=== PATIENT | female | born 1970 | race Caucasian/White ===

== ENCOUNTER → 2018-08-17 | Day surgery (SDC) | payer OTHER ==
[2018-08-17 11:08] LABS: HEMATOCRIT 29.8 % (32.4-45.2); HEMOGLOBIN 10.4 GM/dL (10.7-15.3); MCH 35.7 pg (25.7-33.7); MCHC 34.9 g/dl (32.0-36.0); MEAN CELL VOLUME 102.3 fl (80-96); MEAN PLT VOLUME 7.8 fl (7.5-11.1); PLATELET COUNT 80 K/MM3 (134-434); RBC 2.91 M/mm3 (3.60-5.2); WHITE BLOOD COUNT 3.5 K/mm3 (4.0-10.0)
[2018-08-17 11:22] LABS: INR 1.18 (0.83-1.09); PROTHROMBIN TIME (PATIENT) 13.9 SEC (9.7-13.0)
[2018-08-17 11:51] LABS: ALBUMIN 1.3 g/dl (3.4-5.0); ALK PHOS 262 U/L (45-117); ANION GAP 9 MMOL/L (8-16); BILIRUBIN,TOTAL 1.2 mg/dL (0.2-1); BLOOD UREA NITROGEN 12 mg/dL (7-18); CALCIUM 7.4 mg/dL (8.5-10.1); CHLORIDE 104 mmol/L (98-107); CO2 26 mmol/L (21-32); CREATININE 0.9 mg/dL (0.55-1.3); GLUCOSE,RANDOM 165 mg/dL (74-106); POTASSIUM 3.2 mmol/L (3.5-5.1); SGOT/AST 68 U/L (15-37); SGPT/ALT 33 U/L (13-61); SODIUM 139 mmol/L (136-145); TOT PROT 6.3 g/dl (6.4-8.2)
[2018-08-17 15:40] LABS: PERITONEAL RBC 641 /mm3
[2018-08-17 18:38] LABS: PERITONEAL FLUID LYMPHOCYTE 50 %; PERITONEAL FLUID MACROPHAGE 25 %; PERITONEAL FLUID MONOCYTE 10 %; PERITONEAL FLUID NEUTROPHIL 8 %
--- NOTE | 2018-08-20 16:44 | PATH ---
Cytology Non-Gynecological Report Patient Name: ESPINOZA GROVES [facility]. Rec. #: [id number] /Age/Gender: 1970 (Age: 48) / F Account: [id number] Location: RADIOLOGY INTER Taken: 08/17/2018 Received: 08/17/2018 Reported: 08/20/2018 Physicians: Lasha Mota M.D. Specimen(s) Received A: RIGHT LOWER QUADRANT PERITONEAL FLUID B: RIGHT LOWER QUADRANT PERITONEAL FLUID Clinical History Ascites Final Diagnosis A-B. ABDOMINAL FLUID, RIGHT LOWER QUADRANT, PARACENTESIS: SATISFACTORY FOR EVALUATION. NO MALIGNANT CELLS IDENTIFIED. MESOTHELIAL CELLS AND RARE LYMPHOCYTES PRESENT. Comment: Recommend correlation with clinical findings and follow up as clinically indicated. Electronically Signed Janett Ball M.D. Gross Description A. Approximately 50 cc of yellow fluid received fresh. One cytofunnel prepared and Pap stained. One cellblock prepared. B. Approximately 3000 cc of yellow fluid received fresh. One cytofunnel prepared and Pap stained. One cellblock prepared.
== END | disposition home or self-care (01) ==
LOC: JRADIR 10:28
PROVIDERS: ATTEND Internal Medicine Gastroenterology
PROC: 0W9G3ZX Drainage of Peritoneal Cavity, Percutaneous Approach, Diagnostic (ICD-10-PCS; principal; 2018-08-17)
PROC: BW40ZZZ Ultrasonography of Abdomen (ICD-10-PCS; 2018-08-17)
DX: R18.8 Other ascites (principal)
CPT/HCPCS: 36415; 76098-TC-FY; 76942-TC; 80053; 82042; 82150; 82945; 83615; 84157; 85027; 85610; 87070; 87075; 87102; 87116; 87205; 87206; 87210; 88108; 88305-TC; 89051

== ENCOUNTER 2018-11-16 12:33 | Inpatient (IN) | payer SELFPAY ==
--- NOTE | 2018-11-16 14:32 | PDOC ---
History of Present Illness - General Chief Complaint: Edema Stated Complaint: LEG PAIN Time Seen by Provider: 11/16/18 14:32 - History of Present Illness Initial Comments: 48yo F with history of cholecystectomy and edema presenting with worsening edema. The pain is rated 17/10 and is keeping her up at night. She reports that something might be going on with her liver. Patient does not know what is causing her swelling that started about seven months ago and is unsure when asked if she has hepatitis or cirrhosis. She does endorse a history of heavy alcohol drinking, but not in the past seven months since the swelling started. A peritoneal tap was performed about one month ago. Patient also endorses abdominal distention, as well as a 40 pound weight gain over the past two weeks. Her legs have become increasingly swollen such that she is finding it difficult to walk. She has taken tylenol at 4am with minimal relief. Patient has a GI doctor but denies previous endoscopy or colonoscopy. Patient reports subjective fever and chills. Denies chest pain or shortness of breath. Past History - Past Medical History Allergies/Adverse Reactions: Allergies Allergy/AdvReac Type Severity Reaction Status Date / Time Penicillins Allergy Verified 11/16/18 13:07 Home Medications: Ambulatory Orders Furosemide 40 mg PO DAILY 10/03/18 Lactulose (Oral Use) [Cephulac -] 20 gm PO BID 10/03/18 Spironolactone [Aldactone] 100 mg PO DAILY 10/03/18 COPD: No GI Disorders: Yes (CHRONIC CONSTIPATION,DIARRHEA) Liver Disease: Yes (LIVER FAILURE) - Surgical History Cholecystectomy: Yes - Suicide/Smoking/Psychosocial Hx Smoking History: Never smoked Have you smoked in the past 12 months: Yes Hx Alcohol Use: Yes Drug/Substance Use Hx: No Review of Systems - Review of Systems Comments:: Constitutional: +fever, +chills HEENT: no throat pain, no dysphagia Cardiovascular: no chest pain, no palpitations Respiratory: no cough, no shortness of breath Gastrointestinal: +abdominal pain, no nausea, no vomiting Genitourinary: no dysuria, no frequency Musculoskeletal: no myalgia, no arthralgia Skin: +rash, +itching Neurologic: +headache, no dizziness *Physical Exam - Vital Signs Last Vital Signs Temp Pulse Resp BP Pulse Ox 97.8 F 98 H 18 124/74 100 11/16/18 13:04 11/16/18 13:04 11/16/18 13:04 11/16/18 13:04 11/16/18 13:04 - Physical Exam Comments: General: Awake, alert, and fully oriented, in no acute distress Head: No signs of trauma Eyes: EOMI, sclera anicteric ENT: Moist mucus membranes Neck: Normal ROM, supple Lungs: Lungs clear, Normal breath sounds Cardio: Regular rhythm, S1 and S2 present Abdomen: Distended; fluid wave present, ascites Extremities: Significant 2+ edema present bilaterally SKIN: area of erythema and petechiae on anterior R. thigh Neurologic: Cranial nerves II through XII grossly intact. Normal speech Moderate Sedation - Procedure Monitoring Vital Signs: Procedure Monitoring Vital Signs Temperature 97.8 F 11/16/18 13:04 Pulse Rate 98 H 11/16/18 13:04 Respiratory Rate 18 11/16/18 13:04 Blood Pressure 124/74 11/16/18 13:04 O2 Sat by Pulse Oximetry (%) 100 11/16/18 13:04 ED Treatment Course - LABORATORY CBC & Chemistry Diagram: 11/16/18 15:45 11/16/18 15:36 Medical Decision Making - Medical Decision Making 48yo F with history of cholecystectomy and edema presenting with worsening edema. -DDX includes cirrhosis, anasarca, CHF, fluid overload -WBC=11.8 (up from 2.5 on 09/10/18) -Hgb 10.6 which is near patient's baseline -Plt 108 (up from 80 on 09/10/18) -AST and ALP elevated -BNP 181.1 which is elevated (no prior values in chart) -CXR without acute pathology (my impression) -2mg morphine IV 11/16/18 15:36 Patient still in significant discomfort Lasix 40mg IV Decision to admit 11/16/18 18:54 Discussed case with inpatient team who accepted patient for admission under Dr. Cobb 11/16/18 20:04 *DC/Admit/Observation/Transfer Diagnosis at time of Disposition: Anasarca - Discharge Dispostion Condition at time of disposition: Guarded Decision to Admit order: Yes - Referrals - Patient Instructions - Post Discharge Activity
[2018-11-16] MEDS ORDERED: morphine CARPU-JECT 2 MG/1 ML DISP.SYRIN IVPUSH ONE (15:18)
--- NOTE | 2018-11-16 15:20 | PDOC ---
Attending Attestation - Resident Resident Name: Mae Ponce - ED Attending Attestation I have performed the following: I have examined & evaluated the patient, The case was reviewed & discussed with the resident, I agree w/resident's findings & plan, Exceptions are as noted - HPI HPI: 11/16/18 15:18 Maribell with residents HPI - Physicial Exam PE: 11/16/18 15:18 Agree with Residents PE - Medical Decision Making 11/16/18 16:02 48 years old with past medical history suggestive of underlying liver disease likely cirrhosis Presents to the emergency department with anasarca, severe bilateral lower extremity pain and swelling secondary to this Given that patient is poor story and with unclear history we'll obtain labs and coags and reassess Patient may require therapeutic paracentesis for diuresis depending on laboratory analysis Dr. Cassidy to follow up labs and reasses
[2018-11-16] MEDS ORDERED: MORPHINE SULFATE 2 MG/ML VIAL ONE (16:01)
[2018-11-16 16:13] LABS: BASO % 0.2 % (0-2.0); EOS % 0.5 % (0-4.5); HEMATOCRIT 29.9 % (32.4-45.2); HEMOGLOBIN 10.6 GM/dL (10.7-15.3); LYMPH % 6.7 % (8-40); MCH 38.6 pg (25.7-33.7); MCHC 35.6 g/dl (32.0-36.0); MEAN CELL VOLUME 108.3 fl (80-96); MEAN PLT VOLUME 7.5 fl (7.5-11.1); MONO % 9.7 % (3.8-10.2); NEUT % 82.9 % (42.8-82.8); PLATELET COUNT 108 K/MM3 (134-434); RBC 2.76 M/mm3 (3.60-5.2); RDW 14.2 % (11.6-15.6); WHITE BLOOD COUNT 11.8 K/mm3 (4.0-10.0)
[2018-11-16 16:50] LABS: ALBUMIN 1.2 g/dl (3.4-5.0); ALK PHOS 235 U/L (45-117); BILIRUBIN,TOTAL 1.7 mg/dL (0.2-1); BLOOD UREA NITROGEN 20 mg/dL (7-18); CALCIUM 7.3 mg/dL (8.5-10.1); CHLORIDE 105 mmol/L (98-107); CREATININE 0.8 mg/dL (0.55-1.3); GLUCOSE,RANDOM 106 mg/dL (74-106); LIPASE 147 U/L (73-393); SGPT/ALT 32 U/L (13-61); SODIUM 136 mmol/L (136-145); TOT PROT 6.4 g/dl (6.4-8.2)
[2018-11-16 16:51] LABS: ANION GAP 7 MMOL/L (8-16); CO2 24 mmol/L (21-32); SGOT/AST 66 U/L (15-37)
[2018-11-16 17:41] LABS: INR 1.23 (0.83-1.09); PROTHROMBIN TIME (PATIENT) 14.6 SEC (9.7-13.0)
[2018-11-16 17:44] LABS: ACTIVATED PTT 41.5 SECONDS (25.2-36.5)
[2018-11-16] MEDS ORDERED: FUROSEMIDE 40 MG/4 ML INJECTABLE VIAL IVPUSH ONE ×2 (18:08→23:15)
[2018-11-16] MEDS ORDERED: FUROSEMIDE 40 MG/4 ML INJECTABLE VIAL ONE ×2 (18:17→23:47)
[2018-11-16 18:32] LABS: N-TERMINAL BNP 181.1 pg/ml (5-125)
[2018-11-16 18:44] LABS: ANISOCYTOSIS 2+; MACROCYTOSIS 2+; PLATELET ESTIMATE DECREASED
--- NOTE | 2018-11-16 20:08 | PN ---
Teaching Attending Note Name of Resident: Horace Maurice ATTENDING PHYSICIAN STATEMENT I saw and evaluated the patient. I reviewed the resident's note and discussed the case with the resident. I agree with the resident's findings and plan as documented. SUBJECTIVE: Seen and examined with resident; please refer to resident note for additional documentation. Briefly, this patient presents c/o anasarca and diffuse abdominal pain that is mild. She has had the anasarca developing for months and has had 40lb unintentional weight gain over the past several months but has noted that it is getting worse over the last week. Nothing makes it better or worse, hasn't seen any other providers. Furthermore, her R leg is much more swollen than the L above the knee and has some associated redness. She endorses compliance with her medications including her lasix 40mg PO QD. Abdominal pain is associated with fullness, distention. She has had paracentesis before with Dr. Romeo and has chronically elevated bili and transaminases; she had elevated CEA, CA-19-9, and CA-125 in the past that GI follows her for; in 08/[address] abdomen/pelvis that shows cirrhosis and splenomegaly and large amount of upper abdominal varices but no occult malignancy. She has genotype 1a hepatitis C and has a history of heavy alcohol abuse and tells us that she stopped drinking 7 months ago. No history of EGD/c- scope. 10 sys ROS done and negative aside HPI PMH and PSH reviewed FH asked and noncontributory Socially +hx EtOH Medication list reviewed with resident OBJECTIVE: VS, labs, imaging reviewed NAD, AAO, resting in bed Anasarca evident, +fluid wave with large volume ascites >6L estimated Mildly tender to palpation throughout abdomen with +fluid wave; habitus limits examination for hsm. Not tympanic. RRR s1/2 no mgr Lungs mostly clear, sym exp CN2-12 wnl, no fnd CBC shows WBC 11 but baseline is ~3 with chronic macrocytosis; BMP unremarkable ; INR 1.23, bili 1.7, AST/ALT 60/30 range which is chronic, albumin 1.2. CEA/ CA19-9/CA125 results reviewed from prior encounters Prior CT scan reviewed 08/2018; shows cirrhosis with splenomegaly, upper abdominal varices, and no occult malignancy CXR reviewed; unremarkable study HCV Genotype 1a Echo pending ASSESSMENT AND PLAN: Patient presents with anasarca; has a history of cirrhosis likely 2/2 EtOH and Hepatitis C 1) Abdominal pain with relative leukocytosis -Patient is baseline mildly pancytopenic with WBC ~3; is 11 today with [employer] predominance. In a patient with ascites, abdominal pain this gives rise to concern for SBP px being needed. -2g Ceftriaxone QD, followup blood cultures and peritoneal fluid cx -IR-guided paracentesis in AM (unable to do overnight due to time constraints) 2) Anasarca -Ddx includes cirrhosis, hypoalbuminemia; need to check UA for proteinuria which is pending. Echo pending but much less likely CHF. -Lasix 60IV total overnight followed by 60 in the AM; follow K and Mg closely. May require additional dose of IV lasix tomorrow as well; if so will do BID BMP and can even consider lasix drip. -QD weights, strict Is and Os. -Elucidate underlying cause; workup pending. Checking HIV. Followup UA 3) Leg Swelling, redness, pain -At risk for DVT; LE u/s pending. If negative will consider potential dx of cellulitis vs. neuropathy but of course want to r/o the severe issue first. 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 Romeo's service; CT done in august is negative for any occult malignancy. Consider sending fluid for cytology. 7) Transaminitis -Chronic, trend CMP. At baseline. Bili slightly higher than baseline at 1.7 ( 1.4 last time) 8) Profound Hypoalbuminemia -Albumin 1.2; need to continue to trend. Check prealbumin. 9) Prior h/o EtOH -Tells us that she hasn't drank in >6 months; monitor for s/s WD and if needed CIWA. Full Code FENA -PO fluids, 2.5L restriction -PRN replete -Low Na diet -As tolerated Full Code
[2018-11-16] MEDS ORDERED: CEFTRIAXONE 2 GM/100 ML BAG IVPB ONE (23:47)
[2018-11-17] MEDS ORDERED: oxyCODONE HCL 5 MG TABLET PO ONE (00:43)
[2018-11-17] MEDS: CEFTRIAXONE 2 GM in DEXTROSE 5%-WATER 100 ML IVPB SCH ×2 (01:32→11:00)
--- NOTE | 2018-11-17 01:35 | HP ---
<KayleneHorace - Last Filed: 11/17/18 06:02> CHIEF COMPLAINT: Diffuse swelling PCP: HISTORY OF PRESENT ILLNESS: Patient is a 48 year old female with history of cirrhosis secondary to alcohol abuse, hepatitis C, presents with complaint of diffuse abdominal and lower extremity swelling. States the that symptoms have been ongoing over the past 6 months, however worsened over the past two weeks. She endorses that she has gained 40lbs in that time due to the fluid accumulation. She admits diffuse abdominal pain that is described as pressure-like. Further, she admits pain and swelling in her right leg (from groin radiating to the knee) worse than her left leg that is preventing her from ambulating. She states the pain occurs with rest, even when she is not attempting to more the affected extremity. Patient states that she has been compliant with her home Lasix. She endorses abstinence from alcohol over the past 6 months. ER course was notable for: (1) Bedside ultrasound showing ascitic fluid within abdomen (2) (3) Recent Travel: PAST MEDICAL HISTORY: Cirrhosis, alcohol abuse, hepatitis C PAST SURGICAL HISTORY: at 21 years old, open cholecystectomy 20 years ago Social History: Smoking: denies smoking cigarettes Alcohol: Endorses that she used to drink up 12 beers a day, on days that she drank. States she has not drank in past 6 months. Drugs: Denies illicit drug use Family History: Allergies Penicillins Allergy (Verified 11/16/18 13:07) HOME MEDICATIONS: Home Medications Medication Instructions Recorded Furosemide 40 mg PO DAILY 10/03/18 Lactulose (Oral Use) [Cephulac -] 20 gm PO BID 10/03/18 Spironolactone [Aldactone] 100 mg PO DAILY 10/03/18 REVIEW OF SYSTEMS CONSTITUTIONAL: Admits: fevers, chills. Absent: diaphoresis, generalized weakness, malaise. HEENT: Absent: rhinorrhea, nasal congestion, throat pain, throat swelling, difficulty swallowing, mouth swelling CARDIOVASCULAR: Absent: chest pain, syncope, palpitations, irregular heart rate, lightheadedness , peripheral edema RESPIRATORY: Absent: cough, shortness of breath, dyspnea with exertion, orthopnea, wheezing, stridor, hemoptysis GASTROINTESTINAL: Admits: abdominal pain, abdominal distension. Absent: nausea, vomiting, diarrhea , constipation, melena, hematochezia GENITOURINARY: Absent: dysuria, frequency, urgency, hesitancy, hematuria, flank pain, genital pain MUSCULOSKELETAL: Absent: myalgia, arthralgia, joint swelling, back pain, neck pain SKIN: Admits: erythema over anterior right leg. Absent: rash, itching, pallor HEMATOLOGIC/IMMUNOLOGIC: Absent: easy bleeding, easy bruising, lymphadenopathy, frequent infections NEUROLOGIC: Absent: headache, focal weakness or paresthesias, dizziness, unsteady gait, seizure, mental status changes, bladder or bowel incontinence PSYCHIATRIC: Absent: anxiety, depression, suicidal or homicidal ideation, hallucinations. PHYSICAL EXAMINATION Vital Signs - 24 hr 11/16/18 13:04 Temperature 97.8 F Pulse Rate 98 H Respiratory 18 Rate Blood Pressure 124/74 O2 Sat by Pulse 100 Oximetry (%) GENERAL: Awake, alert, and fully oriented, in no acute distress. HEAD: Normal with no signs of trauma. EYES: Pupils equal, round and reactive to light, extraocular movements intact, sclera anicteric, conjunctiva clear. No lid lag. EARS, NOSE, THROAT: Ears normal, nares patent, oropharynx clear without exudates. Moist mucous membranes. NECK: Normal range of motion, supple without lymphadenopathy, JVD, or masses. LUNGS: Breath sounds equal, clear to auscultation bilaterally. No wheezes, and no crackles. No accessory muscle use. HEART: Regular rate and rhythm, normal S1 and S2 without murmur, rub or gallop. ABDOMEN: Distended. Diffusely tender to palpation X4 quadrants. Hypoactive bowel sounds X4 quadrants. No guarding, no rebound tenderness. Two vertical scars noted from prior surgeries. Healed, clean dry. MUSCULOSKELETAL: Patient has difficulty moving right lower extremity due to pain and swelling. Patient freely moves B/L upper extremities and left lower extremity. UPPER EXTREMITIES: 2+ radial pulses b/l, warm, well-perfused. LOWER EXTREMITIES: 1+ dorsalis pedis pulses b/l. Right lower extremity erythematous, swollen more than left. Tender to palpation. Pain with passive range of motion testing. NEUROLOGICAL: Cranial nerves II-XII intact. Normal speech. PSYCHIATRIC: Cooperative. Appropriate mood and affect. Laboratory Results - last 24 hr 11/16/18 11/16/18 11/16/18 15:36 15:36 15:45 WBC 11.8 H RBC 2.76 L Hgb 10.6 L Hct 29.9 L MCV 108.3 H MCH 38.6 H MCHC 35.6 RDW 14.2 D Plt Count 108 L D MPV 7.5 Absolute Neuts (auto) 9.7 H Neutrophils % 82.9 H Lymphocytes % 6.7 L Monocytes % 9.7 Eosinophils % 0.5 Basophils % 0.2 Nucleated RBC % 0 Platelet Estimate Decreased Anisocytosis 2+ Macrocytosis 2+ PT with INR 14.60 H INR 1.23 H PTT (Actin FS) 41.5 H Sodium 136 Potassium 4.0 Chloride 105 Carbon Dioxide 24 Anion Gap 7 L BUN 20 H Creatinine 0.8 Creat Clearance w eGFR > 60 Random Glucose 106 Calcium 7.3 L Total Bilirubin 1.7 H AST 66 H ALT 32 Alkaline Phosphatase 235 H B-Natriuretic Peptide 181.1 H Total Protein 6.4 Albumin 1.2 L Lipase 147 ASSESSMENT/PLAN: Patient is a 48 year old female with history of cirrhosis secondary to alcohol abuse, hepatitis C, presents with complaint of diffuse abdominal and lower extremity swelling. Anasarca -Likely secondary to cirrhosis, noted on CT abdomen and pelvis from 08/2018. Patient also noted to be hypoalbuminemic to 1.2 -Abdominal pain is likely secondary to the anasarca. -Concern for SBP- begin Rocephin 2grams IV daily -Lasix 40mg given in ED. Will give another 20mg IV tonight. -Lasix 60mg IV daily -Pain control with Oxycodone 5mg PO one time dose. -F/U GI consult (Dr. Romeo) -F/U IR consult (Dr. Kaba) for paracentesis -F/U HIV, ESR, CRP, Lower extremity swelling -Uncertain if secondary to anascara, or DVT, possibly cellulitis. -F/U duplex US B/L lower extremities to rule out DVT History of ETOH abuse -Patient states last drink was 6 months ago. Currently not in withdrawal. -Counselled patient regarding importance of alcohol abstinence. -Monitor for withdrawal Transaminitis -Labs not significantly different from prior studies. Likely chronic. -Trend CMP, and F/U GI recommendations. FEN -No IV fluids -Follow CMP -Sodium controlled diet Prophylaxis -Heparin 5000u subq TID Disposition -Admit to medical-surgical floor Patient will require medicine reconciliation to confirm home medications. Visit type - Emergency Visit Emergency Visit: Yes ED Registration Date: 11/16/18 Care time: The patient presented to the Emergency Department on the above date and was hospitalized for further evaluation of their emergent condition. - New Patient This patient is new to me today: Yes Date on this admission: 11/17/18 - Critical Care Critical Care patient: No <Andres Cobb - Last Filed: 11/29/18 20:38> Was present for all vital parts of encounter; plan discussed with me. Agree with above as documented by the resident.
[2018-11-17] MEDS: HEPARIN NA (PORCINE) 5,000 UNITS/ML 1ML VIAL SQ SCH ×3 (05:26→21:50)
[2018-11-17] MEDS ORDERED: PT OWN MED DRAWER 7, Y5N ONE (06:50)
[2018-11-17 07:14] LABS: HEMOGLOBIN 9.4 GM/dL (10.7-15.3); MCH 36.9 pg (25.7-33.7); MCHC 33.7 g/dl (32.0-36.0); MEAN CELL VOLUME 109.3 fl (80-96); MEAN PLT VOLUME 6.8 fl (7.5-11.1); PLATELET COUNT 83 K/MM3 (134-434); RBC 2.56 M/mm3 (3.60-5.2); RDW 14.5 % (11.6-15.6); WHITE BLOOD COUNT 9.5 K/mm3 (4.0-10.0)
[2018-11-17 07:39] LABS: ALBUMIN 1.2 g/dl (3.4-5.0); ALK PHOS 177 U/L (45-117); ANION GAP 7 MMOL/L (8-16); BILIRUBIN,TOTAL 1.2 mg/dL (0.2-1); BLOOD UREA NITROGEN 18 mg/dL (7-18); CHLORIDE 105 mmol/L (98-107); CO2 25 mmol/L (21-32); CREATININE 0.8 mg/dL (0.55-1.3); GLUCOSE,RANDOM 96 mg/dL (74-106); MAGNESIUM 1.7 mg/dL (1.8-2.4); PHOSPHOROUS 4.4 mg/dL (2.5-4.9); POTASSIUM 3.7 mmol/L (3.5-5.1); SGOT/AST 44 U/L (15-37); SGPT/ALT 27 U/L (13-61); SODIUM 137 mmol/L (136-145); TOT PROT 5.7 g/dl (6.4-8.2)
[2018-11-17] MEDS ORDERED: DEXTROSE 5%-WATER 100 ML IVPB ONE (09:16)
[2018-11-17] MEDS ORDERED: FUROSEMIDE 40 MG/4 ML INJECTABLE VIAL IVPUSH SCH (10:00)
[2018-11-17] MEDS: ACETAMINOPHEN WITH CODEINE 300MG/30MG TABLET PO PRN ×2 (11:53→18:02)
--- NOTE | 2018-11-17 13:26 | EKG ---
Test Reason : Blood Pressure : / mmHG Vent. Rate : 100 BPM Atrial Rate : 100 BPM P-R Int : 146 ms QRS Dur : 086 ms QT Int : 360 ms P-R-T Axes : 038 -05 035 degrees QTc Int : 464 ms NORMAL SINUS RHYTHM NORMAL ECG NO PREVIOUS ECGS AVAILABLE Confirmed by NANCY JAMA MD ([id number]) on 11/17/2018 1:25:58 PM Referred By: Confirmed By:NANCY JAMA MD
[2018-11-17] MEDS ORDERED: MAGNESIUM SULF 50% (8.12 MEQ/2 ML-1 GM VIAL) IVPB ONE (13:29)
--- NOTE | 2018-11-17 13:40 | CON.ID ---
Consult Consult Specialty:: infectious diseases Referred by:: Reason for Consultation:: cellulitis of the rt thigh - History of Present Illness Chief Complaint: abd distension,swelling of the leg cellulitis of the left thigh History of Present Illness: 48 year old female with history of cirrhosis secondary to alcohol abuse, hepatitis C, presents with complaint of diffuse abdominal and lower extremity swelling. States the that symptoms have been ongoing over the past 6 months, however worsened over the past two weeks. She endorses that she has gained 40lbs in that time due to the fluid accumulation. She admits diffuse abdominal pain that is described as pressure-like. Further, she admits pain and swelling in her right leg (from groin radiating to the knee) worse than her left leg that is preventing her from ambulating. She states the pain occurs with rest, even when she is not attempting to more the affected extremity. Patient states that she has been compliant with her home Lasix. She endorses abstinence from alcohol over the past 6 months. patient now also developed redness and erythema of the left thigh which is very tender and painful - History Source History Provided By: Family Member Limitations to Obtaining History: Language Barrier - Past Medical History ...: No - Alcohol/Substance Use Hx Alcohol Use: Yes - Smoking History Smoking history: Current every day smoker Have you smoked in the past 12 months: Yes Aproximately how many cigarettes per day: 2 Home Medications - Allergies Allergies/Adverse Reactions: Allergies Allergy/AdvReac Type Severity Reaction Status Date / Time Penicillins Allergy Verified 11/16/18 13:07 - Home Medications Home Medications: Ambulatory Orders RX: Furosemide 20 mg PO BID 11/19/18 RX: Lactulose 30 mg PO BID 11/19/18 RX: Spironolactone 25 mg PO BID 11/19/18 Review of Systems - Review of Systems Constitutional: reports: No Symptoms Eyes: reports: No Symptoms HENT: reports: No Symptoms Neck: reports: No Symptoms Cardiovascular: reports: No Symptoms Respiratory: reports: SOB Gastrointestinal: reports: Bloating, Other (distension) Genitourinary: reports: No Symptoms Musculoskeletal: reports: Other Integumentary: reports: Change in Color, Erythema (of the rt thigh) Neurological: reports: No Symptoms Endocrine: reports: No Symptoms Hematology/Lymphatic: reports: No Symptoms Psychiatric: reports: No Symptoms Physical Exam Vital Signs: Vital Signs Temperature 97.8 F 11/17/18 10:00 Pulse Rate 80 11/17/18 10:00 Respiratory Rate 20 11/17/18 10:00 Blood Pressure 130/87 11/17/18 10:00 O2 Sat by Pulse Oximetry (%) 98 11/17/18 09:00 Constitutional: Yes: Well Nourished, Moderate Distress, Obese, Other Eyes: Yes: Conjunctiva Clear HENT: Yes: Atraumatic, Normocephalic Neck: Yes: Supple, Trachea Midline Cardiovascular: Yes: Regular Rate and Rhythm Respiratory: Yes: Regular, Poor Air Entry (bases) Gastrointestinal: Yes: Soft, Ascites, Tenderness Musculoskeletal: Yes: WNL Extremities: Yes: Erythema (rt thigh) Neurological: Yes: Alert, Oriented Psychiatric: Yes: Alert, Oriented Labs: CBC, BMP 11/17/18 06:00 11/17/18 06:00 Imaging - Results Chest X-ray: Report Reviewed, Image Reviewed Ultrasound: Report Reviewed, Image Reviewed Assessment/Plan Patient is a 48 year old female with history of cirrhosis secondary to alcohol abuse, hepatitis C, presents with complaint of diffuse abdominal and lower extremity swelling. ascites cellulitis of the left lower ext b/l swelling of the leg etoh abuse transaminitis plan will start patient on abx monitor swelling ct scan of the abd rest as per the team gi on case consider tapping
--- NOTE | 2018-11-17 13:43 | CON.GI ---
Consult Consult Specialty:: GI - History of Present Illness History of Present Illness: 48 y/o F with CHC complicated by ascitis was admitted s/p fall and she her left leg. SHe has gained 40lbs and has developed leg edema. - Past Medical History ...: No - Alcohol/Substance Use Hx Alcohol Use: Yes - Smoking History Smoking history: Current every day smoker Have you smoked in the past 12 months: Yes Aproximately how many cigarettes per day: 2 Home Medications - Allergies Allergies/Adverse Reactions: Allergies Allergy/AdvReac Type Severity Reaction Status Date / Time Penicillins Allergy Verified 11/16/18 13:07 - Home Medications Home Medications: Ambulatory Orders Furosemide 40 mg PO DAILY 10/03/18 Lactulose (Oral Use) [Cephulac -] 20 gm PO BID 10/03/18 Spironolactone [Aldactone] 100 mg PO DAILY 10/03/18 Review of Systems - Review of Systems Constitutional: denies: No Symptoms, Chills, Diaphoresis, Fever, Lethargy, Loss of Appetite, Malaise, Night Sweats, Unintentional Wgt. Loss, Weakness, Other Eyes: denies: No Symptoms, Blind Spots, Blurred Vision, Double Vision, Eye Pain , Floaters, Photophobia, Recent Change in Vision, Other HENT: denies: No Symptoms, Difficult Swallowing, Ear Discharge, Ear Pain, Epistaxis, Gingival Bleeding, Hearing Loss, Mouth Swelling, Nasal Congestion, Ocular Prosthesis, Throat Pain, Toothache, Ringing in Ears, Other Neck: denies: No Symptoms, Decreased ROM, Lumps, Pain on Movement, Stiffness, Swollen Glands, Tenderness, Other Cardiovascular: denies: No Symptoms, Chest Pain, Edema, Palpitations, Shortness of Breath, Other Respiratory: denies: No Symptoms, Cough, Exercise Intolerance, Hemoptysis, Orthopnea, PND, Snoring, SOB, SOB on Exertion, Wheezing, Other Gastrointestinal: denies: No Symptoms, Abdominal Pain, Bloating, Constipation, Diarrhea, Dysphagia, Indigestion, Melena, Nausea, Rectal Bleeding, Vomiting, Vomiting Blood, Other Musculoskeletal: reports: Other (bilateral leg edema) Endocrine: reports: Unexplained Weight Gain Physical Exam-GI Vital Signs: Vital Signs Temperature 97.8 F 11/17/18 10:00 Pulse Rate 80 11/17/18 10:00 Respiratory Rate 20 11/17/18 10:00 Blood Pressure 130/87 11/17/18 10:00 O2 Sat by Pulse Oximetry (%) 98 11/17/18 09:00 Constitutional: Yes: Well Nourished, Poor Hygeine HENT: Yes: Atraumatic Neck: Yes: Supple Cardiovascular: Yes: Regular Rate and Rhythm Respiratory: Yes: CTA Bilaterally Gastrointestinal Inspection: Yes: Ascites ...Palpate: Yes: Soft. No: Firm/Rigid, Guarding, Hepatomegaly, Mass, Pulsatile Mass, Splenomegaly, Tenderness Extremities: Yes: Erythema (left thigh) Edema: LLE: 4+, RLE: 4+ Labs: CBC, BMP 11/17/18 06:00 11/17/18 06:00 INR, PTT INR 1.23 (0.83-1.09) H 11/16/18 15:36 Problem List - Problems (1) Hepatic cirrhosis due to chronic hepatitis C infection Assessment/Plan: R> cocktail of diuretics as ordered daily weights ID consult--DX possible cellulitis serieal BMP and Magnesium level please correct electrolytes as tolerated Code(s): B18.2 - CHRONIC VIRAL HEPATITIS C; K74.60 - UNSPECIFIED CIRRHOSIS OF LIVER
--- NOTE | 2018-11-17 15:41 | PN ---
Teaching Attending Note Name of Resident: Horace Maurice ATTENDING PHYSICIAN STATEMENT I saw and evaluated the patient. I reviewed the resident's note and discussed the case with the resident. I agree with the resident's findings and plan as documented. 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 She is a 48 Y/O F W Etoh induced cirrhosis,hepatitis C. P/W pain and redness on the R thigh. she states that she was in her [facility] till 5 days ago, developed gradual onset, worsening, painful, erythma ont he frontal area of the Right thigh, with no clear trigger, has been taking tylenol 6x200 mg at home for pain control, denies any F/C at home , no trauma to the area, she states that she came to the hospital as it was not getting better. in the ED US done with no DVT, also started on ceftriaxone for cellulites. she has had chronic volume overload in the setting of cirrhosis, and has had peritoneal taps before. Denies any abdominal pain. At the time of my exam is initially in no distress but she cries later when I examine her. Last Vital Signs Temp Pulse Resp BP Pulse Ox 97.8 F 80 20 130/87 98 11/17/18 10:00 11/17/18 10:00 11/17/18 10:00 11/17/18 10:00 11/17/18 09:00 CBCD WBC 9.5 K/mm3 (4.0-10.0) 11/17/18 06:00 RBC 2.56 M/mm3 (3.60-5.2) L 11/17/18 06:00 Hgb 9.4 GM/dL (10.7-15.3) L 11/17/18 06:00 Hct 28.0 % (32.4-45.2) L 11/17/18 06:00 MCV 109.3 fl (80-96) H 11/17/18 06:00 MCHC 33.7 g/dl (32.0-36.0) 11/17/18 06:00 RDW 14.5 % (11.6-15.6) 11/17/18 06:00 Plt Count 83 K/MM3 (134-434) L D 11/17/18 06:00 MPV 6.8 fl (7.5-11.1) L 11/17/18 06:00 CMP Sodium 137 mmol/L (136-145) 11/17/18 06:00 Potassium 3.7 mmol/L (3.5-5.1) 11/17/18 06:00 Chloride 105 mmol/L (98-107) 11/17/18 06:00 Carbon Dioxide 25 mmol/L (21-32) 11/17/18 06:00 Anion Gap 7 MMOL/L (8-16) L 11/17/18 06:00 BUN 18 mg/dL (7-18) 11/17/18 06:00 Creatinine 0.8 mg/dL (0.55-1.3) 11/17/18 06:00 Creat Clearance w eGFR > 60 (>60) 11/17/18 06:00 Random Glucose 96 mg/dL (74-106) 11/17/18 06:00 Calcium 7.0 mg/dL (8.5-10.1) L 11/17/18 06:00 Total Bilirubin 1.2 mg/dL (0.2-1) H 11/17/18 06:00 AST 44 U/L (15-37) H 11/17/18 06:00 ALT 27 U/L (13-61) 11/17/18 06:00 Alkaline Phosphatase 177 U/L (45-117) H 11/17/18 06:00 Total Protein 5.7 g/dl (6.4-8.2) L 11/17/18 06:00 Albumin 1.2 g/dl (3.4-5.0) L 11/17/18 06:00 Intake & Output 11/14/18 11/15/18 11/16/18 11/17/18 23:59 23:59 23:59 23:59 Output Total 200 1900 Balance -200 -1900 Weight 150 lb 223 lb Current Medications Current Medications Generic Name Dose Route Start Last Admin Trade Name Freq PRN Reason Stop Dose Admin Acetaminophen/Codeine Phosphate 1 tab 11/17/18 11:15 11/17/18 11:53 Tylenol # 3 - PO 1 tab Q6H PRN Administration PAIN LEVEL 1-5 Albumin Human 12.5 gm 11/17/18 14:00 Albumin Human 25% IVPB 11/20/18 02:01 Q12H [facility] Furosemide 40 mg 11/17/18 14:30 Lasix Injection - IVPUSH 11/20/18 02:31 Q12H [facility] Heparin Sodium (Porcine) 5,000 unit 11/17/18 06:00 11/17/18 13:22 Heparin - SQ 5,000 unit TID [facility] Administration Ceftriaxone Sodium 2 gm/ 100 mls @ 200 mls/hr 11/16/18 23:30 11/17/18 11:00 Dextrose IVPB 200 mls/hr DAILY [facility] Administration Lactulose 20 gm 11/17/18 15:42 Cephulac (Oral Use) PO TID PRN CONSTIPATION Metolazone 2.5 mg 11/17/18 14:00 Zaroxolyn - PO 11/20/18 02:01 Q12H [facility] Potassium Chloride 40 meq 11/17/18 13:45 K-Dur - PO DAILY [facility] Spironolactone 100 mg 11/17/18 13:30 Aldactone - PO DAILY [facility] Medication Instructions Recorded Furosemide 40 mg PO DAILY 10/03/18 Lactulose (Oral Use) [Cephulac -] 20 gm PO BID 10/03/18 Spironolactone [Aldactone] 100 mg PO DAILY 10/03/18 A&P: She is a 48 Y/O F W Etoh induced cirrhosis,hepatitis C. P/W pain and redness on the R thigh Also found to be volume overloaded. cellulitis: on ceftriaxone, pending ID recs, pain control with tylenol codein, max total dose of acetaminophen 2gr/day decompensated cirrhosis: No acute decompensation and mostly in the setting of non adherence to her diet. Will C/W iv lasix, metolazone, monitor BMP for renal function and K. C/W lactulose C/W SPIRONOLACTONE monitor I/o She states that she has been sober for 6 months , should be on transplant list unclear if treated for HCV Dvt ppc: heparin as she is high risk in the setting of cirrhosis Diet: low sodium, fluid restriction Dispo: home after better weight control
[2018-11-17] MEDS: ALBUMIN HUMAN 25% 12.5 GM/50 ML VIAL IVPB SCH (17:03)
[2018-11-17] MEDS: POTASSIUM CHLORIDE TABS 20 MEQ TABLET.ER (FP) PO SCH (17:04)
[2018-11-17 17:23] LABS: URINE APPEARANCE CLEAR; URINE BILIRUBIN NEGATIVE (<2.0 mg/dL); URINE COLOR LTYELLOW; URINE GLUCOSE (UA) NEGATIVE (NEGATIVE); URINE KETONE NEGATIVE (NEGATIVE); URINE LEUK ESTERASE NEGATIVE (NEGATIVE); URINE NITRITE NEGATIVE (NEGATIVE); URINE PROTEIN NEGATIVE (NEGATIVE); URINE UROBILINOGEN NEGATIVE mg/dL (0.2-1.0)
[2018-11-17 17:39] LABS: URINE MUCUS RARE
[2018-11-17] MEDS: METOLAZONE 2.5 MG TABLET (FP) PO SCH (17:50)
[2018-11-17] MEDS: SPIRONOLACTONE 25 MG TABLET (FP) PO SCH (17:50)
[2018-11-17] MEDS: FUROSEMIDE 40 MG/4 ML INJECTABLE VIAL IVPUSH SCH (17:50)
[2018-11-18] MEDS: ALBUMIN HUMAN 25% 12.5 GM/50 ML VIAL IVPB SCH ×2 (01:31→15:09)
[2018-11-18] MEDS: METOLAZONE 2.5 MG TABLET (FP) PO SCH ×2 (01:45→15:56)
[2018-11-18] MEDS: ACETAMINOPHEN WITH CODEINE 300MG/30MG TABLET PO PRN ×2 (01:45→09:02)
[2018-11-18] MEDS: FUROSEMIDE 40 MG/4 ML INJECTABLE VIAL IVPUSH SCH ×2 (02:14→15:55)
[2018-11-18] MEDS ORDERED: ACETAMINOPHEN 325 MG TABLET (FP) PO ONE (05:15)
[2018-11-18] MEDS: HEPARIN NA (PORCINE) 5,000 UNITS/ML 1ML VIAL SQ SCH ×3 (05:54→21:40)
[2018-11-18] MEDS: LACTULOSE 20 GM/30 ML UDC (FOR ORAL USE ONLY) PO PRN (09:02)
[2018-11-18] MEDS ORDERED: DEXTROSE 5%-WATER 100 ML IVPB ONE (09:17)
[2018-11-18] MEDS: CEFTRIAXONE 2 GM in DEXTROSE 5%-WATER 100 ML IVPB SCH (09:51)
[2018-11-18] MEDS: POTASSIUM CHLORIDE TABS 20 MEQ TABLET.ER (FP) PO SCH (09:51)
[2018-11-18] MEDS ORDERED: VANCOMYCIN 1 GRAM (PRE-DOCKED) 1,000 MG/250 ML BAG IVPB SCH ×2 (10:15→13:00)
--- NOTE | 2018-11-18 10:25 | PN ---
Physical Exam: SUBJECTIVE: Patient seen and examined, pain is not well controlled at this time. OBJECTIVE: Vital Signs Period Temp Pulse Resp BP Sys/Mittal Pulse Ox Last 24 Hr 98.2 F-99.0 F 86-92 20-20 123-130/66-84 96 She has been afebrile, the erythema in the area on the ANt aspect of the R thigh is present and is still the same since with no significant improvement, is a bit more localized and has more feeling of possible collection under the skin Abdomen is soft, still has significant edema and anasarca at this time with minimal improvement Laboratory Results - last 24 hr 11/17/18 11/17/18 11/17/18 06:00 12:30 14:30 C-Reactive Protein 11.4 H Vitamin B12 3787 H Serum Folate 3 L Urine Color Ltyellow Urine Appearance Clear Urine pH 6.0 Ur Specific [place] 1.006 L Urine Protein Negative Urine Glucose (UA) Negative Urine Ketones Negative Urine Blood 3+ H Urine Nitrite Negative Urine Bilirubin Negative Urine Urobilinogen Negative Ur Leukocyte Esterase Negative Urine WBC (Auto) 1 Urine RBC (Auto) 29 Urine Mucus Rare HIV 1&2 Antibody Screen Negative HIV P24 Antigen Negative Active Medications Generic Name Dose Route Start Last Admin Trade Name Freq PRN Reason Stop Dose Admin Albumin Human 12.5 gm 11/17/18 14:00 11/18/18 01:31 Albumin Human 25% IVPB 11/20/18 02:01 12.5 gm Q12H [facility] Administration Furosemide 40 mg 11/17/18 14:30 11/18/18 02:14 Lasix Injection - IVPUSH 11/20/18 02:31 40 mg Q12H [facility] Administration Heparin Sodium (Porcine) 5,000 unit 11/17/18 06:00 11/18/18 05:54 Heparin - SQ 5,000 unit TID [facility] Administration Ceftriaxone Sodium 2 gm/ 100 mls @ 200 mls/hr 11/16/18 23:30 11/18/18 09:51 Dextrose IVPB 200 mls/hr DAILY [facility] Administration Lactulose 20 gm 11/17/18 15:42 11/18/18 09:02 Cephulac (Oral Use) PO 20 gm TID PRN Administration CONSTIPATION Metolazone 2.5 mg 11/17/18 14:00 11/18/18 01:45 Zaroxolyn - PO 11/20/18 02:01 2.5 mg Q12H [facility] Administration Oxycodone/Acetaminophen 1 combo 11/18/18 10:05 Percocet 5/325 - PO 11/19/18 10:06 Q6HPO PRN PAIN LEVEL 4 - 6 Potassium Chloride 40 meq 11/17/18 13:45 11/18/18 09:51 K-Dur - PO 40 meq DAILY [facility] Administration Spironolactone 100 mg 11/17/18 13:30 11/17/18 17:50 Aldactone - PO 100 mg DAILY [facility] Administration Vancomycin HCl 1,000 mg 11/18/18 10:30 Vancomycin (Pre-Docked) IVPB Q8H-IV [facility] Protocol ASSESSMENT/PLAN: She is a 48 Y/O F W Etoh induced cirrhosis,hepatitis C. P/W pain and redness on the R thigh Also found to be volume overloaded. cellulites: on ceftriaxone, started on Vanc from today,there is no abscess on soft tissue MRI from yesterday today looks more localized nd indurated will get US for evaluated of abscess, pending ID recs, pain control with tylenol codeine was insufficient, will give percocet, monitor MS, max total dose of acetaminophen 2gr/day decompensated cirrhosis: No acute decompensation and mostly in the setting of non adherence to her diet. Will C/W iv lasix, metolazone, monitor BMP for renal function and K. Will increase lasix to 80 BID C/W lactulose for 3 BM /day C/W SPIRONOLACTONE monitor I/o She states that she has been sober for 6 months , should be on transplant list unclear if treated for HCV Dvt ppc: heparin as she is high risk in the setting of cirrhosis Diet: low sodium, fluid restriction Dispo: home after better weight control Visit type - Emergency Visit Emergency Visit: No - New Patient This patient is new to me today: No - Critical Care Critical Care patient: No - Discharge Referral Referred to [facility] Med P.C.: No
[2018-11-18] MEDS ORDERED: POTASSIUM CHLORIDE ORAL LIQUID 20 MEQ/15 ML PO SCH (10:45)
[2018-11-18] MEDS: SPIRONOLACTONE 25 MG TABLET (FP) PO SCH (11:14)
[2018-11-18 11:25] LABS: ANION GAP 6 MMOL/L (8-16); BLOOD UREA NITROGEN 14 mg/dL (7-18); CALCIUM 7.3 mg/dL (8.5-10.1); CHLORIDE 102 mmol/L (98-107); CO2 27 mmol/L (21-32); CREATININE 0.8 mg/dL (0.55-1.3); GLUCOSE,RANDOM 152 mg/dL (74-106); MAGNESIUM 1.7 mg/dL (1.8-2.4); POTASSIUM 3.7 mmol/L (3.5-5.1); SODIUM 135 mmol/L (136-145)
[2018-11-18] MEDS ORDERED: FUROSEMIDE 40 MG/4 ML INJECTABLE VIAL IVPUSH SCH (14:00)
[2018-11-18] MEDS: MAGNESIUM CL 64 MG TABLET.SA PO SCH (14:28)
--- NOTE | 2018-11-18 14:53 | PN ---
Progress Note, Physician History of Present Illness: patient still with pain swelling of the leg slightly better still erythema present with tenderness - Current Medication List Current Medications: Active Medications Acetaminophen (Tylenol -) 325 mg PO Q6HPO PRN PRN Reason: PAIN LEVEL 4 - 6 Albumin Human (Albumin Human 25%) 12.5 gm IVPB Q12H [facility] Stop: 11/20/18 02:01 Last Admin: 11/18/18 01:31 Dose: 12.5 gm Furosemide (Lasix Injection -) 60 mg IVPUSH Q12H [facility] Stop: 11/20/18 02:31 Heparin Sodium (Porcine) (Heparin -) 5,000 unit SQ TID [facility] Last Admin: 11/18/18 05:54 Dose: 5,000 unit Ceftriaxone Sodium 2 gm/ (Dextrose) 100 mls @ 200 mls/hr IVPB DAILY [facility] Last Admin: 11/18/18 09:51 Dose: 200 mls/hr Lactulose (Cephulac (Oral Use)) 20 gm PO TID PRN PRN Reason: CONSTIPATION Last Admin: 11/18/18 09:02 Dose: 20 gm Magnesium Chloride (Slow-Mag -) 128 mg PO DAILY [facility] Stop: 11/19/18 23:59 Last Admin: 11/18/18 14:28 Dose: 128 mg Metolazone (Zaroxolyn -) 2.5 mg PO Q12H [facility] Stop: 11/20/18 02:01 Last Admin: 11/18/18 01:45 Dose: 2.5 mg Oxycodone HCl (Roxicodone -) 5 mg PO Q6HPO PRN PRN Reason: PAIN LEVEL 4 - 6 Potassium Chloride (K-Dur -) 40 meq PO DAILY [facility] Last Admin: 11/18/18 09:51 Dose: 40 meq Spironolactone (Aldactone -) 100 mg PO DAILY [facility] Last Admin: 11/18/18 11:14 Dose: 100 mg - Objective Vital Signs: Vital Signs Temperature 98.1 F 11/18/18 10:00 Pulse Rate 90 11/18/18 10:00 Respiratory Rate 20 11/18/18 10:00 Blood Pressure 134/68 11/18/18 10:00 O2 Sat by Pulse Oximetry (%) 97 11/18/18 09:00 Constitutional: Yes: Calm, Mild Distress Eyes: Yes: Conjunctiva Clear Cardiovascular: Yes: Regular Rate and Rhythm Respiratory: Yes: Regular, Poor Air Entry Gastrointestinal: Yes: Normal Bowel Sounds, Ascites, Other Musculoskeletal: Yes: WNL Extremities: Yes: Erythema, Other (swelling of the ext) Neurological: Yes: Alert, Oriented Psychiatric: Yes: Alert, Oriented Labs: CBC, BMP 11/17/18 06:00 11/18/18 10:30 INR, PTT INR 1.23 (0.83-1.09) H 11/16/18 15:36 - ....Imaging Cat Scan: Report Reviewed, Image Reviewed Assessment/Plan Patient is a 48 year old female with history of cirrhosis secondary to alcohol abuse, hepatitis C, presents with complaint of diffuse abdominal and lower extremity swelling. ascites cellulitis of the left lower ext b/l swelling of the leg etoh abuse transamitis plan will continue patient on ceftriaxone will stop vanco rest continue current mgmt monitor for cellulitis rest as per team
[2018-11-18] MEDS: oxyCODONE HCL 5 MG TABLET PO PRN ×2 (15:09→21:35)
[2018-11-18 19:02] LABS: ANION GAP 8 MMOL/L (8-16); BLOOD UREA NITROGEN 13 mg/dL (7-18); CALCIUM 7.4 mg/dL (8.5-10.1); CHLORIDE 100 mmol/L (98-107); CO2 27 mmol/L (21-32); CREATININE 0.9 mg/dL (0.55-1.3); GLUCOSE,RANDOM 174 mg/dL (74-106); POTASSIUM 3.8 mmol/L (3.5-5.1); SODIUM 135 mmol/L (136-145)
[2018-11-18 19:45] LABS: MAGNESIUM 1.6 mg/dL (1.8-2.4)
[2018-11-18] MEDS ORDERED: PT OWN MED DRAWER 7, Y5N ONE (22:11)
[2018-11-19] MEDS: ALBUMIN HUMAN 25% 12.5 GM/50 ML VIAL IVPB SCH ×2 (01:29→15:00)
[2018-11-19] MEDS: METOLAZONE 2.5 MG TABLET (FP) PO SCH ×2 (01:30→14:33)
[2018-11-19] MEDS: oxyCODONE HCL 5 MG TABLET PO PRN ×3 (01:44→20:29)
[2018-11-19] MEDS ORDERED: VANCOMYCIN 1 GRAM (PRE-DOCKED) 1,000 MG/250 ML BAG IVPB SCH (02:00)
[2018-11-19] MEDS: FUROSEMIDE 40 MG/4 ML INJECTABLE VIAL IVPUSH SCH ×2 (02:00→14:33)
[2018-11-19] MEDS: HEPARIN NA (PORCINE) 5,000 UNITS/ML 1ML VIAL SQ SCH ×3 (05:09→22:32)
[2018-11-19] MEDS: ACETAMINOPHEN 325 MG TABLET (FP) PO PRN (07:13)
[2018-11-19 07:55] LABS: ANION GAP 4 MMOL/L (8-16); BLOOD UREA NITROGEN 11 mg/dL (7-18); CALCIUM 7.5 mg/dL (8.5-10.1); CHLORIDE 99 mmol/L (98-107); CO2 29 mmol/L (21-32); CREATININE 0.7 mg/dL (0.55-1.3); GLUCOSE,RANDOM 111 mg/dL (74-106); POTASSIUM 3.7 mmol/L (3.5-5.1); SODIUM 132 mmol/L (136-145)
[2018-11-19] MEDS ORDERED: MAGNESIUM SULF 50% (8.12 MEQ/2 ML-1 GM VIAL) IVPB ONE (08:43)
--- NOTE | 2018-11-19 12:47 | PN ---
Physical Exam: SUBJECTIVE: Patient seen and examined at bedside this morning. She has lost 5kg since admission. She had two soft formed bowel movements yesterday. She endorses diffuse pressure- like abdominal pain that has been constant. Endorses minimal improvement in right lower extremity pain and swelling. Denies fevers, chills, shortness of breath, chest pain, palpitations, abdominal pain, nausea, vomiting, diarrhea. OBJECTIVE: Vital Signs Period Temp Pulse Resp BP Sys/Mittal Pulse Ox Last 24 Hr 98.2 F-99 F 87-95 18-20 127-139/73-79 96 GENERAL: Awake, alert, and fully oriented, in no acute distress. HEAD: Normal with no signs of trauma. EYES: Pupils equal, round and reactive to light, extraocular movements intact, sclera anicteric, conjunctiva clear. EARS, NOSE, THROAT:Oropharynx clear without exudates. Moist mucous membranes. NECK: Supple without lymphadenopathy. LUNGS: Breath sounds equal, clear to auscultation bilaterally. No wheezes, and no crackles. No accessory muscle use. HEART: Regular rate and rhythm, normal S1 and S2 without murmur, rub or gallop. ABDOMEN: Distended. Diffusely tender to palpation X4 quadrants. Hypoactive bowel sounds X4 quadrants. No guarding, no rebound tenderness. Two vertical scars noted from prior surgeries. Healed, clean dry. MUSCULOSKELETAL: Patient has difficulty moving right lower extremity due to pain and swelling. Patient freely moves B/L upper extremities and left lower extremity. UPPER EXTREMITIES: 2+ radial pulses b/l, warm, well-perfused. LOWER EXTREMITIES: 1+ dorsalis pedis pulses b/l. Right lower extremity erythematous, swollen more than left. Tender to palpation. Pain with passive range of motion testing. 3+ pitting edema RLE, 2 + pitting edema LLE. NEUROLOGICAL: Cranial nerves II-XII intact. Normal speech. PSYCHIATRIC: Cooperative. Appropriate mood and affect. Laboratory Results - last 24 hr 11/18/18 11/19/18 18:18 06:15 Sodium 135 L 132 L Potassium 3.8 3.7 Chloride 100 99 Carbon Dioxide 27 29 Anion Gap 8 4 L BUN 13 11 Creatinine 0.9 0.7 Creat Clearance w eGFR > 60 > 60 Random Glucose 174 H 111 H Calcium 7.4 L 7.5 L Magnesium 1.6 L Active Medications Generic Name Dose Route Start Last Admin Trade Name Freq PRN Reason Stop Dose Admin Acetaminophen 325 mg 11/18/18 10:49 11/19/18 07:13 Tylenol - PO 325 mg Q6HPO PRN Administration PAIN LEVEL 4 - 6 Albumin Human 12.5 gm 11/17/18 14:00 11/19/18 01:29 Albumin Human 25% IVPB 11/20/18 02:01 12.5 gm Q12H [facility] Administration Furosemide 60 mg 11/18/18 14:30 11/19/18 02:00 Lasix Injection - IVPUSH 11/20/18 02:31 60 mg Q12H [facility] Administration Heparin Sodium (Porcine) 5,000 unit 11/17/18 06:00 11/19/18 05:09 Heparin - SQ 5,000 unit TID [facility] Administration Ceftriaxone Sodium 2 gm/ 100 mls @ 200 mls/hr 11/16/18 23:30 11/18/18 09:51 Dextrose IVPB 200 mls/hr DAILY [facility] Administration Lactulose 20 gm 11/17/18 15:42 11/18/18 09:02 Cephulac (Oral Use) PO 20 gm TID PRN Administration CONSTIPATION Magnesium Chloride 128 mg 11/18/18 10:45 11/18/18 14:28 Slow-Mag - PO 11/19/18 23:59 128 mg DAILY [facility] Administration Metolazone 2.5 mg 11/17/18 14:00 11/19/18 01:30 Zaroxolyn - PO 11/20/18 02:01 2.5 mg Q12H [facility] Administration Oxycodone HCl 5 mg 11/18/18 10:48 11/19/18 01:44 Roxicodone - PO 5 mg Q6HPO PRN Administration PAIN LEVEL 4 - 6 Potassium Chloride 40 meq 11/17/18 13:45 11/18/18 09:51 K-Dur - PO 40 meq DAILY [facility] Administration Spironolactone 100 mg 11/17/18 13:30 11/18/18 11:14 Aldactone - PO 100 mg DAILY [facility] Administration ASSESSMENT/PLAN: Patient is a 48 year old female with history of cirrhosis secondary to alcohol abuse, hepatitis C, presents with complaint of diffuse abdominal and lower extremity swelling. Anasarca -Likely secondary to cirrhosis, noted on CT abdomen and pelvis from 08/2018. -Abdominal pain is likely secondary to the anasarca. -Patient has diuresed >5L in past 24 hours. S/P paracentesis with 5500cc serous fluid removed. -Albumin 12.5 grams IV Q12H -Spironolactone 100mg PO daily -Lactulose 20grams PO TID PRN -Metolazone 2.5 mg PO Q12H -Lasix 60mg IV daily BID -Pain control with Oxycodone 5mg Q6H PO PRN. -GI consult (Dr. Romeo) appreciated. Lower extremity swelling -CT lower extremity shows ascites and extensive subucateous edema without discrete fluid collection suggestive of abscess/ hematoma. -Duplex US B/L lower extremities negative for DVT -Rocephin 2grams IV daily for likely cellulites. History of ETOH abuse -Patient states last drink was 6 months ago. Currently not in withdrawal. -Counselled patient regarding importance of alcohol abstinence. -Monitor for withdrawal Transaminitis -Labs not significantly different from prior studies. Likely chronic. -Trend CMP FEN -No IV fluids -Follow CMP -Sodium controlled diet Prophylaxis -Heparin 5000u subq TID Disposition -Admit to medical-surgical floor Visit type - Emergency Visit Emergency Visit: Yes ED Registration Date: 11/16/18 Care time: The patient presented to the Emergency Department on the above date and was hospitalized for further evaluation of their emergent condition. - New Patient This patient is new to me today: No - Critical Care Critical Care patient: No - Discharge Referral Referred to [facility] Med P.C.: No
[2018-11-19] MEDS: CEFTRIAXONE 2 GM in DEXTROSE 5%-WATER 100 ML IVPB SCH (13:00)
[2018-11-19] MEDS: MAGNESIUM CL 64 MG TABLET.SA PO SCH (13:30)
--- NOTE | 2018-11-19 13:46 | PN ---
Teaching Attending Note Name of Resident: Horace Maurice ATTENDING PHYSICIAN STATEMENT I saw and evaluated the patient. I reviewed the resident's note and discussed the case with the resident. I agree with the resident's findings and plan as documented. SUBJECTIVE: Last Vital Signs Temp Pulse Resp BP Pulse Ox 98.6 F 94 H 18 127/73 96 11/19/18 06:00 11/19/18 06:00 11/19/18 06:00 11/19/18 06:00 11/18/18 21:00 Current Medications Generic Name Dose Route Start Last Admin Trade Name Freq PRN Reason Stop Dose Admin Acetaminophen 325 mg 11/18/18 10:49 11/19/18 07:13 Tylenol - PO 325 mg Q6HPO PRN Administration PAIN LEVEL 4 - 6 Albumin Human 12.5 gm 11/17/18 14:00 11/19/18 01:29 Albumin Human 25% IVPB 11/20/18 02:01 12.5 gm Q12H [facility] Administration Furosemide 60 mg 11/18/18 14:30 11/19/18 02:00 Lasix Injection - IVPUSH 11/20/18 02:31 60 mg Q12H [facility] Administration Heparin Sodium (Porcine) 5,000 unit 11/17/18 06:00 11/19/18 05:09 Heparin - SQ 5,000 unit TID [facility] Administration Ceftriaxone Sodium 2 gm/ 100 mls @ 200 mls/hr 11/16/18 23:30 11/18/18 09:51 Dextrose IVPB 200 mls/hr DAILY [facility] Administration Lactulose 20 gm 11/17/18 15:42 11/18/18 09:02 Cephulac (Oral Use) PO 20 gm TID PRN Administration CONSTIPATION Magnesium Chloride 128 mg 11/18/18 10:45 11/18/18 14:28 Slow-Mag - PO 11/19/18 23:59 128 mg DAILY [facility] Administration Metolazone 2.5 mg 11/17/18 14:00 11/19/18 01:30 Zaroxolyn - PO 11/20/18 02:01 2.5 mg Q12H [facility] Administration Oxycodone HCl 5 mg 11/18/18 10:48 11/19/18 01:44 Roxicodone - PO 5 mg Q6HPO PRN Administration PAIN LEVEL 4 - 6 Potassium Chloride 40 meq 11/17/18 13:45 11/18/18 09:51 K-Dur - PO 40 meq DAILY [facility] Administration Spironolactone 100 mg 11/17/18 13:30 11/18/18 11:14 Aldactone - PO 100 mg DAILY [facility] Administration OBJECTIVE: ASSESSMENT AND PLAN: She is a 48 Y/O F W Etoh induced cirrhosis,hepatitis C. P/W pain and redness on the R thigh Also found to be volume overloaded. cellulites: on ceftriaxone improving and ID evaluation did not recommend vanc at this time. US did not show any abscess this morning either. Will ask ID for PO recs decompensated cirrhosis: No acute decompensation and mostly in the setting of non adherence to her diet. Will C/W iv lasix, metolazone, monitor BMP for renal function and K. is S/P 5500 cc OF FLUID REMOVAL BY DIURETICS WELL 5500 by removal of the ascitis fluid by IR. Will increase lasix to 60 BID also is on metolazone At this time have to monitor BMP closely C/W lactulose for 3 BM /day C/W SPIRONOLACTONE monitor I/o She states that she has been sober for 6 months , should be on transplant list unclear if treated for HCV Dvt ppc: heparin as she is high risk in the setting of cirrhosis Diet: low sodium, fluid restriction Dispo: home after better duiresis and improvement of cellulitis
--- NOTE | 2018-11-19 13:54 | PN ---
GI Progress Note - Objective Vital Signs: Vital Signs Temperature 98.6 F 11/19/18 06:00 Pulse Rate 94 H 11/19/18 06:00 Respiratory Rate 18 11/19/18 06:00 Blood Pressure 127/73 11/19/18 06:00 O2 Sat by Pulse Oximetry (%) 96 11/18/18 21:00 Labs: CBC, BMP 11/17/18 06:00 11/19/18 06:15 INR, PTT INR 1.23 (0.83-1.09) H 11/16/18 15:36 Problem List - Problems (1) Hepatic cirrhosis due to chronic hepatitis C infection Code(s): B18.2 - CHRONIC VIRAL HEPATITIS C; K74.60 - UNSPECIFIED CIRRHOSIS OF LIVER
[2018-11-19] MEDS: SPIRONOLACTONE 25 MG TABLET (FP) PO SCH (14:33)
[2018-11-19] MEDS: POTASSIUM CHLORIDE TABS 20 MEQ TABLET.ER (FP) PO SCH (14:33)
[2018-11-19] MEDS ORDERED: DEXTROSE 5%-WATER 100 ML IVPB ONE (14:36)
[2018-11-19 15:54] LABS: BF WBC & OTHER NUCLEATED CELLS 117 /mm3
--- NOTE | 2018-11-19 17:32 | PN ---
Progress Note, Physician History of Present Illness: patient feels better says she has lost about 5 pounts leg still hurting - Current Medication List Current Medications: Active Medications Acetaminophen (Tylenol -) 325 mg PO Q6HPO PRN PRN Reason: PAIN LEVEL 4 - 6 Last Admin: 11/19/18 07:13 Dose: 325 mg Albumin Human (Albumin Human 25%) 12.5 gm IVPB Q12H [facility] Stop: 11/20/18 02:01 Last Admin: 11/19/18 01:29 Dose: 12.5 gm Furosemide (Lasix Injection -) 60 mg IVPUSH Q12H [facility] Stop: 11/20/18 02:31 Last Admin: 11/19/18 14:33 Dose: 60 mg Heparin Sodium (Porcine) (Heparin -) 5,000 unit SQ TID [facility] Last Admin: 11/19/18 14:39 Dose: 5,000 unit Ceftriaxone Sodium 2 gm/ (Dextrose) 100 mls @ 200 mls/hr IVPB DAILY [facility] Last Admin: 11/19/18 13:00 Dose: 200 mls/hr Lactulose (Cephulac (Oral Use)) 20 gm PO TID PRN PRN Reason: CONSTIPATION Last Admin: 11/18/18 09:02 Dose: 20 gm Magnesium Chloride (Slow-Mag -) 128 mg PO DAILY [facility] Stop: 11/19/18 23:59 Last Admin: 11/19/18 13:30 Dose: 128 mg Metolazone (Zaroxolyn -) 2.5 mg PO Q12H [facility] Stop: 11/20/18 02:01 Last Admin: 11/19/18 14:33 Dose: 2.5 mg Oxycodone HCl (Roxicodone -) 5 mg PO Q6HPO PRN PRN Reason: PAIN LEVEL 4 - 6 Last Admin: 11/19/18 14:32 Dose: 5 mg Potassium Chloride (K-Dur -) 40 meq PO DAILY [facility] Last Admin: 11/19/18 14:33 Dose: 40 meq Spironolactone (Aldactone -) 100 mg PO DAILY [facility] Last Admin: 11/19/18 14:33 Dose: 100 mg - Objective Vital Signs: Vital Signs Temperature 98.8 F 11/19/18 15:04 Pulse Rate 98 H 11/19/18 15:04 Respiratory Rate 20 11/19/18 15:04 Blood Pressure 126/78 12/31/18 15:04 O2 Sat by Pulse Oximetry (%) 96 11/18/18 21:00 Constitutional: Yes: No Distress, Calm Cardiovascular: Yes: Regular Rate and Rhythm Respiratory: Yes: Regular, CTA Bilaterally Gastrointestinal: Yes: Ascites, Tenderness Musculoskeletal: Yes: WNL Extremities: Yes: Erythema (rt thigh) Neurological: Yes: Alert, Oriented Psychiatric: Yes: Alert, Oriented Labs: CBC, BMP 11/17/18 06:00 11/19/18 06:15 INR, PTT INR 1.23 (0.83-1.09) H 11/16/18 15:36 Assessment/Plan Patient is a 48 year old female with history of cirrhosis secondary to alcohol abuse, hepatitis C, presents with complaint of diffuse abdominal and lower extremity swelling. ascites cellulitis of the left lower ext b/l swelling of the leg etoh abuse transamitis plan continue current abx might change to ertapenam patient is forming abscess probably at that site close watch might need i and d
[2018-11-19 20:36] LABS: BODY FLUID MACROPHAGES 9 %; BODY FLUID MESOTHELIAL 21 %; BODY FLUID MONOCYTE 7 %
[2018-11-19] MEDS ORDERED: DOCUSATE SODIUM 100 MG CAPSULE (FP) PO PRN (21:46)
[2018-11-20] MEDS ORDERED: PT OWN MED DRAWER 7, Y5N ONE (01:11)
[2018-11-20] MEDS: oxyCODONE HCL 5 MG TABLET PO PRN ×4 (01:52→22:35)
[2018-11-20] MEDS: ALBUMIN HUMAN 25% 12.5 GM/50 ML VIAL IVPB SCH (01:52)
[2018-11-20] MEDS: METOLAZONE 2.5 MG TABLET (FP) PO SCH (01:52)
[2018-11-20] MEDS: FUROSEMIDE 40 MG/4 ML INJECTABLE VIAL IVPUSH SCH (02:38)
[2018-11-20] MEDS: HEPARIN NA (PORCINE) 5,000 UNITS/ML 1ML VIAL SQ SCH ×3 (07:05→21:17)
[2018-11-20 07:35] LABS: HEMATOCRIT 26.8 % (32.4-45.2); HEMOGLOBIN 9.3 GM/dL (10.7-15.3); MCH 36.6 pg (25.7-33.7); MCHC 34.6 g/dl (32.0-36.0); MEAN CELL VOLUME 105.7 fl (80-96); MEAN PLT VOLUME 6.9 fl (7.5-11.1); PLATELET COUNT 83 K/MM3 (134-434); RBC 2.54 M/mm3 (3.60-5.2); RDW 13.1 % (11.6-15.6); WHITE BLOOD COUNT 6.5 K/mm3 (4.0-10.0)
--- NOTE | 2018-11-20 07:54 | PN ---
Teaching Attending Note Name of Resident: Horace Kaylene ATTENDING PHYSICIAN STATEMENT I saw and evaluated the patient. I reviewed the resident's note and discussed the case with the resident. I agree with the resident's findings and plan as documented. SUBJECTIVE: Patient is uncomfortable due to having distended abdomen. Daughter at bedside. OBJECTIVE: Vital Signs Temperature 98.9 F 11/20/18 01:51 Pulse Rate 98 H 11/20/18 01:51 Respiratory Rate 18 11/20/18 01:51 Blood Pressure 138/74 11/20/18 01:51 O2 Sat by Pulse Oximetry (%) 97 11/19/18 21:00 GENERAL: Awake, alert, and fully oriented, in no acute distress. HEAD: Normal with no signs of trauma. EYES: Pupils equal, round and reactive to light, extraocular movements intact, sclera anicteric, conjunctiva clear. EARS, NOSE, THROAT:Oropharynx clear without exudates. Moist mucous membranes. NECK: Supple without lymphadenopathy. LUNGS: Breath sounds equal, clear to auscultation bilaterally. No wheezes, and no crackles. No accessory muscle use. HEART: Regular rate and rhythm, normal S1 and S2 without murmur, rub or gallop. ABDOMEN: Distended. mild tenderness all the quadrants. positive for ascites. No guarding, no rebound tenderness. EXTREMITIES: 1+ dorsalis pedis pulses b/l. Right lower extremity erythematous, swollen more than left. 2 + pitting edema NEUROLOGICAL: Cranial nerves II-XII intact. Normal speech. PSYCHIATRIC: Cooperative. Appropriate mood and affect. CBCD WBC 6.5 K/mm3 (4.0-10.0) 11/20/18 06:15 RBC 2.54 M/mm3 (3.60-5.2) L 11/20/18 06:15 Hgb 9.3 GM/dL (10.7-15.3) L 11/20/18 06:15 Hct 26.8 % (32.4-45.2) L 11/20/18 06:15 MCV 105.7 fl (80-96) H 11/20/18 06:15 MCHC 34.6 g/dl (32.0-36.0) 11/20/18 06:15 RDW 13.1 % (11.6-15.6) 11/20/18 06:15 Plt Count 83 K/MM3 (134-434) L 11/20/18 06:15 MPV 6.9 fl (7.5-11.1) L 11/20/18 06:15 CMP Sodium 132 mmol/L (136-145) L 11/19/18 06:15 Potassium 3.7 mmol/L (3.5-5.1) 11/19/18 06:15 Chloride 99 mmol/L (98-107) 11/19/18 06:15 Carbon Dioxide 29 mmol/L (21-32) 11/19/18 06:15 Anion Gap 4 MMOL/L (8-16) L 11/19/18 06:15 BUN 11 mg/dL (7-18) 11/19/18 06:15 Creatinine 0.7 mg/dL (0.55-1.3) 11/19/18 06:15 Creat Clearance w eGFR > 60 (>60) 11/19/18 06:15 Random Glucose 111 mg/dL (74-106) H 11/19/18 06:15 Calcium 7.5 mg/dL (8.5-10.1) L 11/19/18 06:15 Total Bilirubin 1.2 mg/dL (0.2-1) H 11/17/18 06:00 AST 44 U/L (15-37) H 11/17/18 06:00 ALT 27 U/L (13-61) 11/17/18 06:00 Alkaline Phosphatase 177 U/L (45-117) H 11/17/18 06:00 Total Protein 5.7 g/dl (6.4-8.2) L 11/17/18 06:00 Albumin 1.2 g/dl (3.4-5.0) L 11/17/18 06:00 Current Medications Generic Name Dose Route Start Last Admin Trade Name Freq PRN Reason Stop Dose Admin Acetaminophen 325 mg 11/18/18 10:49 11/19/18 07:13 Tylenol - PO 325 mg Q6HPO PRN Administration PAIN LEVEL 4 - 6 Docusate Sodium 100 mg 11/19/18 21:46 Colace - PO BID PRN CONSTIPATION Heparin Sodium (Porcine) 5,000 unit 11/17/18 06:00 11/20/18 07:05 Heparin - SQ 5,000 unit TID [facility] Administration Ceftriaxone Sodium 2 gm/ 100 mls @ 200 mls/hr 11/16/18 23:30 11/19/18 13:00 Dextrose IVPB 200 mls/hr DAILY [facility] Administration Lactulose 20 gm 11/17/18 15:42 11/18/18 09:02 Cephulac (Oral Use) PO 20 gm TID PRN Administration CONSTIPATION Oxycodone HCl 5 mg 11/18/18 10:48 11/20/18 01:52 Roxicodone - PO 5 mg Q6HPO PRN Administration PAIN LEVEL 4 - 6 Potassium Chloride 40 meq 11/17/18 13:45 11/19/18 14:33 K-Dur - PO 40 meq DAILY [facility] Administration Simethicone 80 mg 11/19/18 21:45 Mylicon - PO Q4H PRN GAS Spironolactone 100 mg 11/17/18 13:30 11/19/18 14:33 Aldactone - PO 100 mg DAILY [facility] Administration Home Medications Medication Instructions Recorded Furosemide 20 mg PO BID 11/19/18 Lactulose 30 mg PO BID 11/19/18 Spironolactone 25 mg PO BID 11/19/18 ASSESSMENT AND PLAN: Patient is a 48 year old female with history of cirrhosis secondary to alcohol abuse, hepatitis C, presents with complaint of diffuse abdominal and lower extremity swelling. # Anasarca due to liver cirrhosis due to alcohol dependency s/p paracentesis with 5500cc serous fluid removed. continue meds. Continue with spironolactone , Lactulose 20grams PO TID PRN, Pain medication , Oxycodone 5mg , GI consult ( Dr. Romeo) appreciated. On Rocephin 2grams IV daily for possible SBP #Lower extremity swelling due to anasarca/liver cirrhosis, Duplex US B/L lower extremities negative for DVT. #History of ETOH dependency , as per patient , last drink was 6 months ago. Counselled patient regarding importance of alcohol abstinence. #Acute Transaminitis monitor Prophylaxis: Heparin 5000u subq TID
[2018-11-20 08:10] LABS: ALBUMIN 1.9 g/dl (3.4-5.0); ALK PHOS 147 U/L (45-117); ANION GAP 7 MMOL/L (8-16); BLOOD UREA NITROGEN 10 mg/dL (7-18); CALCIUM 7.6 mg/dL (8.5-10.1); CHLORIDE 95 mmol/L (98-107); CO2 30 mmol/L (21-32); CREATININE 0.7 mg/dL (0.55-1.3); GLUCOSE,RANDOM 88 mg/dL (74-106); MAGNESIUM 1.4 mg/dL (1.8-2.4); PHOSPHOROUS 3.9 mg/dL (2.5-4.9); POTASSIUM 3.7 mmol/L (3.5-5.1); SGOT/AST 43 U/L (15-37); SGPT/ALT 21 U/L (13-61); SODIUM 132 mmol/L (136-145); TOT PROT 5.8 g/dl (6.4-8.2)
[2018-11-20] MEDS ORDERED: DEXTROSE 5%-WATER 100 ML IVPB ONE (08:56)
[2018-11-20] MEDS: SIMETHICONE 80 MG TAB.CHEW (FP) PO PRN (09:33)
[2018-11-20] MEDS: CEFTRIAXONE 2 GM in DEXTROSE 5%-WATER 100 ML IVPB SCH (09:33)
[2018-11-20] MEDS: POTASSIUM CHLORIDE TABS 20 MEQ TABLET.ER (FP) PO SCH (09:33)
[2018-11-20] MEDS: SPIRONOLACTONE 25 MG TABLET (FP) PO SCH (09:33)
--- NOTE | 2018-11-20 09:33 | PN ---
Physical Exam: SUBJECTIVE: Patient seen and examined at bedside this morning. She endorses diminishing abdominal pain, and improvement in right lower extremity pain. Denies fevers, chills, shortness of breath, chest pain, palpitations, abdominal pain, nausea, vomiting. OBJECTIVE: Vital Signs Period Temp Pulse Resp BP Sys/Mittal Pulse Ox Last 24 Hr 98.4 F-99.5 F 91-100 18-20 126-159/63-78 97 GENERAL: Awake, alert, and fully oriented, in no acute distress. HEAD: Normal with no signs of trauma. EYES: Pupils equal, round and reactive to light, extraocular movements intact, sclera anicteric. EARS, NOSE, THROAT: Oropharynx clear without exudates. Moist mucous membranes. NECK: Supple without lymphadenopathy. LUNGS: Breath sounds equal, clear to auscultation bilaterally. No wheezes, and no crackles. No accessory muscle use. HEART: Regular rate and rhythm, normal S1 and S2 without murmur, rub or gallop. ABDOMEN: Distended. Diffusely tender to palpation X4 quadrants. Tympanic to percussion X 4 quadrants. Hypoactive bowel sounds X4 quadrants. No guarding, no rebound tenderness. Two vertical scars noted from prior surgeries. Healed, clean dry. MUSCULOSKELETAL: Patient has improving motion of right lower extremity, limited due to pain and swelling. Patient freely moves B/L upper extremities and left lower extremity. UPPER EXTREMITIES: 2+ radial pulses b/l, warm, well-perfused. LOWER EXTREMITIES: 1+ dorsalis pedis pulses b/l. Right lower extremity erythematous with 8cm X 8cm area of tender induration. Tender to palpation. Pain with passive range of motion testing. 3+ pitting edema RLE, 2 + pitting edema LLE. NEUROLOGICAL: Cranial nerves II-XII intact. Normal speech. PSYCHIATRIC: Cooperative. Appropriate mood and affect. Laboratory Results - last 24 hr 11/19/18 11/19/18 11/20/18 14:00 14:00 06:15 WBC 6.5 RBC 2.54 L Hgb 9.3 L Hct 26.8 L MCV 105.7 H MCH 36.6 H MCHC 34.6 RDW 13.1 Plt Count 83 L MPV 6.9 L Sodium Potassium Chloride Carbon Dioxide Anion Gap BUN Creatinine Creat Clearance w eGFR Random Glucose Calcium Phosphorus Magnesium Total Bilirubin AST ALT Alkaline Phosphatase Total Protein Albumin Fluid Source Peritoneal Fluid WBC 117 Fluid RBC 643 Fluid Neutrophils 28 Fluid Lymphocytes 40 Fluid Other Cells 4 Fluid Amylase Cancelled Pleural Monocytes 7 Pleural Macrophages 9 Pleural Mesothelial 21 Pleural Diff Comment 11/20/18 06:15 WBC RBC Hgb Hct MCV MCH MCHC RDW Plt Count MPV Sodium 132 L Potassium 3.7 Chloride 95 L Carbon Dioxide 30 Anion Gap 7 L BUN 10 Creatinine 0.7 Creat Clearance w eGFR > 60 Random Glucose 88 Calcium 7.6 L Phosphorus 3.9 Magnesium 1.4 L Total Bilirubin 2.0 H AST 43 H ALT 21 Alkaline Phosphatase 147 H Total Protein 5.8 L Albumin 1.9 L Fluid Source Fluid WBC Fluid RBC Fluid Neutrophils Fluid Lymphocytes Fluid Other Cells Fluid Amylase Pleural Monocytes Pleural Macrophages Pleural Mesothelial Pleural Diff Comment Active Medications Generic Name Dose Route Start Last Admin Trade Name Freq PRN Reason Stop Dose Admin Acetaminophen 325 mg 11/18/18 10:49 11/19/18 07:13 Tylenol - PO 325 mg Q6HPO PRN Administration PAIN LEVEL 4 - 6 Docusate Sodium 100 mg 11/19/18 21:46 Colace - PO BID PRN CONSTIPATION Heparin Sodium (Porcine) 5,000 unit 11/17/18 06:00 11/20/18 07:05 Heparin - SQ 5,000 unit TID [facility] Administration Ceftriaxone Sodium 2 gm/ 100 mls @ 200 mls/hr 11/16/18 23:30 11/19/18 13:00 Dextrose IVPB 200 mls/hr DAILY [facility] Administration Lactulose 20 gm 11/17/18 15:42 11/18/18 09:02 Cephulac (Oral Use) PO 20 gm TID PRN Administration CONSTIPATION Oxycodone HCl 5 mg 11/18/18 10:48 11/20/18 08:47 Roxicodone - PO 5 mg Q6HPO PRN Administration PAIN LEVEL 4 - 6 Potassium Chloride 40 meq 11/17/18 13:45 11/19/18 14:33 K-Dur - PO 40 meq DAILY [facility] Administration Simethicone 80 mg 11/19/18 21:45 Mylicon - PO Q4H PRN GAS Spironolactone 100 mg 11/17/18 13:30 11/19/18 14:33 Aldactone - PO 100 mg DAILY [facility] Administration ASSESSMENT/PLAN: Patient is a 48 year old female with history of cirrhosis secondary to alcohol abuse, hepatitis C, presents with complaint of diffuse abdominal and lower extremity swelling. Anasarca -Likely secondary to cirrhosis, noted on CT abdomen and pelvis from 08/2018. -Abdominal pain is likely secondary to the anasarca. -Patient has diuresed >4L in past 24 hours. S/P paracentesis (11/09) with 5500cc serous fluid removed. F/U serology, and microbiology. -Patient completed Albumin course prior to paracentesis. -Spironolactone 100mg PO daily -Lactulose 20grams PO TID PRN -Metolazone 2.5 mg PO Q12H -Lasix 60mg IV daily BID -Pain control with Oxycodone 5mg Q6H PO PRN. -GI consult (Dr. Romeo) appreciated. Lower extremity swelling -CT lower extremity shows ascites and extensive subucateous edema without discrete fluid collection suggestive of abscess/ hematoma. -Duplex US B/L lower extremities negative for DVT -Rocephin 2grams IV daily for likely cellulitis. History of ETOH abuse -Patient states last drink was 6 months ago. Currently not in withdrawal. -Counselled patient regarding importance of alcohol abstinence. -Monitor for withdrawal Hyponatremia -Likely secondary to volume overload. -Monitor CMP closely. Transaminitis -Labs not significantly different from prior studies. Likely chronic. -Trend CMP FEN -No IV fluids -Follow CMP -Sodium controlled diet Prophylaxis -Heparin 5000u subq TID Disposition -Admit to medical-surgical floor Visit type - Emergency Visit Emergency Visit: Yes ED Registration Date: 11/16/18 Care time: The patient presented to the Emergency Department on the above date and was hospitalized for further evaluation of their emergent condition. - New Patient This patient is new to me today: No - Critical Care Critical Care patient: No - Discharge Referral Referred to [facility] Med P.C.: No
[2018-11-20] MEDS ORDERED: ACETAMINOPHEN 325 MG TABLET (FP) ONE (09:51)
--- NOTE | 2018-11-20 12:27 | PN ---
Progress Note, Physician History of Present Illness: continues to improve feels better localizing erythema of the thigh still very tender - Current Medication List Current Medications: Active Medications Acetaminophen (Tylenol -) 325 mg PO Q6HPO PRN PRN Reason: PAIN LEVEL 4 - 6 Last Admin: 11/19/18 07:13 Dose: 325 mg Docusate Sodium (Colace -) 100 mg PO BID PRN PRN Reason: CONSTIPATION Heparin Sodium (Porcine) (Heparin -) 5,000 unit SQ TID [facility] Last Admin: 11/20/18 07:05 Dose: 5,000 unit Ceftriaxone Sodium 2 gm/ (Dextrose) 100 mls @ 200 mls/hr IVPB DAILY [facility] Last Admin: 11/20/18 09:33 Dose: 200 mls/hr Lactulose (Cephulac (Oral Use)) 20 gm PO TID PRN PRN Reason: CONSTIPATION Last Admin: 11/18/18 09:02 Dose: 20 gm Oxycodone HCl (Roxicodone -) 5 mg PO Q6HPO PRN PRN Reason: PAIN LEVEL 4 - 6 Last Admin: 11/20/18 08:47 Dose: 5 mg Potassium Chloride (K-Dur -) 40 meq PO DAILY [facility] Last Admin: 11/20/18 09:33 Dose: 40 meq Simethicone (Mylicon -) 80 mg PO Q4H PRN PRN Reason: GAS Last Admin: 11/20/18 09:33 Dose: 80 mg Spironolactone (Aldactone -) 100 mg PO DAILY [facility] Last Admin: 11/20/18 09:33 Dose: 100 mg - Objective Vital Signs: Vital Signs Temperature 98.5 F 11/20/18 10:00 Pulse Rate 101 H 11/20/18 10:00 Respiratory Rate 20 11/20/18 10:00 Blood Pressure 128/87 11/20/18 10:00 O2 Sat by Pulse Oximetry (%) 98 11/20/18 09:00 Constitutional: Yes: Calm, Mild Distress Cardiovascular: Yes: Regular Rate and Rhythm Respiratory: Yes: Regular, Poor Air Entry Gastrointestinal: Yes: Ascites, Tenderness Extremities: Yes: Erythema (rt thigh) Neurological: Yes: Alert, Oriented Psychiatric: Yes: Alert, Oriented Labs: CBC, BMP 11/20/18 06:15 11/20/18 06:15 INR, PTT INR 1.23 (0.83-1.09) H 11/16/18 15:36 Assessment/Plan Patient is a 48 year old female with history of cirrhosis secondary to alcohol abuse, hepatitis C, presents with complaint of diffuse abdominal and lower extremity swelling. ascites cellulitis of the left lower ext b/l swelling of the leg etoh abuse transaminitis plan continue abx monitor for forming of an abscess rest as per the team still with erythema and redness
[2018-11-20] MEDS: ACETAMINOPHEN 325 MG TABLET (FP) PO PRN (21:17)
[2018-11-21] MEDS: HEPARIN NA (PORCINE) 5,000 UNITS/ML 1ML VIAL SQ SCH ×3 (05:58→22:34)
[2018-11-21] MEDS: oxyCODONE HCL 5 MG TABLET PO PRN ×2 (05:58→22:34)
[2018-11-21 06:54] LABS: HEMATOCRIT 24.7 % (32.4-45.2); HEMOGLOBIN 8.5 GM/dL (10.7-15.3); MCH 36.9 pg (25.7-33.7); MCHC 34.5 g/dl (32.0-36.0); MEAN CELL VOLUME 107.2 fl (80-96); PLATELET COUNT 71 K/MM3 (134-434); RDW 13.3 % (11.6-15.6); WHITE BLOOD COUNT 6.4 K/mm3 (4.0-10.0)
[2018-11-21 07:30] LABS: BLOOD UREA NITROGEN 11 mg/dL (7-18); CREATININE 0.7 mg/dL (0.55-1.3); GLUCOSE,RANDOM 144 mg/dL (74-106)
[2018-11-21 07:31] LABS: ALBUMIN 1.5 g/dl (3.4-5.0); ALK PHOS 150 U/L (45-117); ANION GAP 4 MMOL/L (8-16); BILIRUBIN,TOTAL 1.3 mg/dL (0.2-1); CALCIUM 7.4 mg/dL (8.5-10.1); CHLORIDE 96 mmol/L (98-107); CO2 30 mmol/L (21-32); MAGNESIUM 1.6 mg/dL (1.8-2.4); PHOSPHOROUS 3.7 mg/dL (2.5-4.9); SGOT/AST 43 U/L (15-37); SGPT/ALT 19 U/L (13-61); SODIUM 130 mmol/L (136-145); TOT PROT 5.2 g/dl (6.4-8.2)
[2018-11-21] MEDS ORDERED: MAGNESIUM OXIDE 400 MG TABLET (FP) PO ONE (08:30)
[2018-11-21] MEDS ORDERED: DEXTROSE 5%-WATER 100 ML IVPB ONE (10:27)
[2018-11-21] MEDS: CEFTRIAXONE 2 GM in DEXTROSE 5%-WATER 100 ML IVPB SCH (10:37)
[2018-11-21] MEDS: POTASSIUM CHLORIDE TABS 20 MEQ TABLET.ER (FP) PO SCH (10:37)
[2018-11-21] MEDS: LACTULOSE 20 GM/30 ML UDC (FOR ORAL USE ONLY) PO PRN (10:41)
[2018-11-21] MEDS: SPIRONOLACTONE 25 MG TABLET (FP) PO SCH (10:42)
--- NOTE | 2018-11-21 11:04 | PN ---
GI Progress Note Subjective: Patient states feeling better. Denies abdominal pain. Denies nausea, vomiting , diarrhea. - Objective Vital Signs: Vital Signs Temperature 98.5 F 11/21/18 06:42 Pulse Rate 85 11/21/18 06:42 Respiratory Rate 18 11/21/18 06:42 Blood Pressure 109/63 11/21/18 06:42 O2 Sat by Pulse Oximetry (%) 99 11/20/18 21:00 Constitutional: Well Nourished, No Distress, Calm Eyes: Yes: Conjunctiva Clear Cardiovascular: Yes: WNL, Regular Rate and Rhythm Respiratory: Yes: WNL, Regular, CTA Bilaterally Gastrointestinal Inspection: Yes: Ascites ...Palpate: Yes: Soft Extremities: Yes: WNL Edema: Yes Edema: LLE: 1+, RLE: 1+ Neurological: Yes: Alert, Oriented Psychiatric: Yes: Alert, Oriented Labs: CBC, BMP 11/21/18 05:15 11/21/18 05:15 INR, PTT INR 1.23 (0.83-1.09) H 11/16/18 15:36 Problem List - Problems (1) Hepatic cirrhosis due to chronic hepatitis C infection Code(s): B18.2 - CHRONIC VIRAL HEPATITIS C; K74.60 - UNSPECIFIED CIRRHOSIS OF LIVER
[2018-11-21] MEDS: FUROSEMIDE 40 MG TABLET (FP) PO SCH (12:11)
[2018-11-21] MEDS: ACETAMINOPHEN 325 MG TABLET (FP) PO PRN ×2 (12:17→18:25)
--- NOTE | 2018-11-21 12:42 | PN ---
Progress Note, Physician History of Present Illness: patient stable no new issues abd soft leg cellulitis much better - Current Medication List Current Medications: Active Medications Acetaminophen (Tylenol -) 325 mg PO Q6HPO PRN PRN Reason: PAIN LEVEL 4 - 6 Last Admin: 11/21/18 12:17 Dose: 325 mg Docusate Sodium (Colace -) 100 mg PO BID PRN PRN Reason: CONSTIPATION Furosemide (Lasix -) 40 mg PO DAILY [facility] Last Admin: 11/21/18 12:11 Dose: 40 mg Heparin Sodium (Porcine) (Heparin -) 5,000 unit SQ TID [facility] Last Admin: 11/21/18 05:58 Dose: 5,000 unit Ceftriaxone Sodium 2 gm/ (Dextrose) 100 mls @ 200 mls/hr IVPB DAILY [facility] Last Admin: 11/21/18 10:37 Dose: 200 mls/hr Lactulose (Cephulac (Oral Use)) 20 gm PO TID PRN PRN Reason: CONSTIPATION Last Admin: 11/21/18 10:41 Dose: 20 gm Potassium Chloride (K-Dur -) 40 meq PO DAILY [facility] Last Admin: 11/21/18 10:37 Dose: 40 meq Simethicone (Mylicon -) 80 mg PO Q4H PRN PRN Reason: GAS Last Admin: 11/20/18 09:33 Dose: 80 mg Spironolactone (Aldactone -) 100 mg PO DAILY [facility] Last Admin: 11/21/18 10:42 Dose: 100 mg - Objective Vital Signs: Vital Signs Temperature 98.5 F 11/21/18 06:42 Pulse Rate 85 11/21/18 06:42 Respiratory Rate 18 11/21/18 06:42 Blood Pressure 109/63 11/21/18 06:42 O2 Sat by Pulse Oximetry (%) 99 11/20/18 21:00 Constitutional: Yes: No Distress, Calm Cardiovascular: Yes: Regular Rate and Rhythm Respiratory: Yes: Regular, CTA Bilaterally Gastrointestinal: Yes: Ascites, Tenderness Musculoskeletal: Yes: WNL Extremities: Yes: Other (cellulitis of the rt thigh) Neurological: Yes: Alert, Oriented Psychiatric: Yes: Alert, Oriented Labs: CBC, BMP 11/21/18 05:15 11/21/18 05:15 INR, PTT INR 1.23 (0.83-1.09) H 11/16/18 15:36 Assessment/Plan Patient is a 48 year old female with history of cirrhosis secondary to alcohol abuse, hepatitis C, presents with complaint of diffuse abdominal and lower extremity swelling. ascites cellulitis of the left lower ext b/l swelling of the leg etoh abuse transaminitis plan continue abx might deescalte to oral tomorrow rest as per the team gi
[2018-11-21] MEDS: LACTULOSE 20 GM/30 ML UDC (FOR ORAL USE ONLY) PO SCH ×3 (14:52→22:39)
[2018-11-21 15:15] LABS: BODY FLUID ALBUMIN 0.2 g/dL (.)
--- NOTE | 2018-11-21 15:58 | PN ---
Teaching Attending Note Name of Resident: Horace Mauriec ATTENDING PHYSICIAN STATEMENT I saw and evaluated the patient. I reviewed the resident's note and discussed the case with the resident. I agree with the resident's findings and plan as documented. SUBJECTIVE: Feeling better, less abdominal distension and swelling. Denies abdominal pain, nausea, vomiting, diarrhea, fever. Last BM 11/18 OBJECTIVE: Afebrile, Hemodynamically Stable. Last Vital Signs Temp Pulse Resp BP Pulse Ox 98 F 85 20 116/67 99 11/21/18 13:41 11/21/18 13:41 11/21/18 13:41 11/21/18 13:41 11/21/18 09:00 HEENT- Atraumatic, Normocephalic. Heart - S1, S2, RRR Lungs - good air entry bilaterally Abdomen -soft, non-tender. Bowel Sounds normal. Extremities - edema+, RLE (thigh, inner aspect) erythematous, swollen, tender+. No abscess or purulent discharge. Neuro -AAO x 3. No asterixis. Tone/Power normal all 4 extremities. Laboratory Results - last 24 hr 11/19/18 11/21/18 11/21/18 14:00 05:15 05:15 WBC 6.4 RBC 2.30 L Hgb 8.5 L Hct 24.7 L MCV 107.2 H MCH 36.9 H MCHC 34.5 RDW 13.3 Plt Count 71 L MPV 7.0 L Sodium 130 L Potassium 4.0 Chloride 96 L Carbon Dioxide 30 Anion Gap 4 L BUN 11 Creatinine 0.7 Creat Clearance w eGFR > 60 Random Glucose 144 H Calcium 7.4 L Phosphorus 3.7 Magnesium 1.6 L Total Bilirubin 1.3 H AST 43 H ALT 19 Alkaline Phosphatase 150 H Total Protein 5.2 L Albumin 1.5 L Fluid Total Protein 0.8 Fluid Albumin 0.2 Body Fluid LDH Source 47 Fluid Amylase 16 Fluid Triglycerides 17 Current Medications Generic Name Dose Route Start Last Admin Trade Name Freq PRN Reason Stop Dose Admin Acetaminophen 325 mg 11/18/18 10:49 11/21/18 12:17 Tylenol - PO 325 mg Q6HPO PRN Administration PAIN LEVEL 4 - 6 Docusate Sodium 100 mg 11/19/18 21:46 Colace - PO BID PRN CONSTIPATION Furosemide 40 mg 11/21/18 11:15 11/21/18 12:11 Lasix - PO 40 mg DAILY [facility]AN Administration Heparin Sodium (Porcine) 5,000 unit 11/17/18 06:00 11/21/18 14:50 Heparin - SQ 5,000 unit TID [facility]AN Administration Lactulose 20 gm 11/21/18 14:00 11/21/18 14:52 Cephulac (Oral Use) PO 20 gm TID [facility]RIAN Administration Potassium Chloride 40 meq 11/17/18 13:45 11/21/18 10:37 K-Dur - PO 40 meq DAILY [facility]AN Administration Simethicone 80 mg 11/19/18 21:45 11/20/18 09:33 Mylicon - PO 80 mg Q4H PRN Administration GAS Spironolactone 100 mg 11/17/18 13:30 11/21/18 10:42 Aldactone - PO 100 mg DAILY ADRIAN Administration ASSESSMENT AND PLAN: 48 year old female with Liver Cirrhosis secondary to Chronic Hepatitis C and Alcohol abuse, presented with Abdominal distension and peripheral edema, admitted 11/16. 1. Ascites and Peripheral edema secondary to Portal Hypertension and hypoalbuminemia sec to Liver Cirrhosis due to HepC/Alcohol abuse s/p Paracentesis with 5.5L drained, culture negative so far. s/p IV Lasix diuresis for 01/24. Venous Duplex LEs neg for DVT. Continue oral Spironolactone. To discuss with GI regarding including oral Lasix as part of daily diuretic regimen. Lactulose 20mg TID to ensure 3-4 soft BMs daily. GI following. Last drink 6 months ago. 2. Cellulitis RLE - Continue Ceftriaxone. ID following. 3. Chronic Macrocytic Anemia/Thrombocytopenia secondary to Liver Cirrhosis - no evidence of bleeding. PT/INR requested. 4. Hypomagnesemia/Hypophosphatemia - will replete. DVT Px - Heparin SQ
[2018-11-21] MEDS ORDERED: SODIUM PHOSPHATE - 30 MM in SODIUM CHLORIDE 500 ML IVPB ONE (15:59)
[2018-11-21] MEDS ORDERED: MAGNESIUM SULF 50% (8.12 MEQ/2 ML-1 GM VIAL) IVPB ONE (15:59)
--- NOTE | 2018-11-21 16:34 | PATH ---
Cytology Non-Gynecological Report Patient Name: ESPINOZA RODIRGUEZ Med. Rec. #: [id number] /Age/Gender: 1970 (Age: 48) / F Account: [id number] Location: [facility] MED/SURG Taken: 11/19/2018 Received: 11/19/2018 Reported: 11/21/2018 Physicians: Lasha Godinez MD Specimen(s) Received ABD FLUID Clinical History Cirrhosis Final Diagnosis ABDOMINAL FLUID, PARACENTESIS: SATISFACTORY FOR EVALUATION. NO MALIGNANT CELLS IDENTIFIED. MESOTHELIAL CELLS, RARE MACROPHAGES, AND LYMPHOCYTES PRESENT. Comment: Prior material is noted. Electronically Signed Janett Ball M.D. Gross Description Approximately 45 cc of yellow fluid received fixed in 50% alcohol. One cytofunnel prepared and Pap stained. One cellblock prepared.
[2018-11-21] MEDS ORDERED: SODIUM PHOSPHATE - 15 MM in SODIUM CHLORIDE 250 ML IVPB ONE (17:25)
--- NOTE | 2018-11-21 19:03 | PN ---
Physical Exam: SUBJECTIVE: Patient seen and examined at bedside this morning. She endorses improvement in right lower extremity pain, and increased range of motion. Denies fevers, chills, shortness of breath, chest pain, palpitations, abdominal pain, nausea, vomiting. OBJECTIVE: Vital Signs Period Temp Pulse Resp BP Sys/Mittal Pulse Ox Last 24 Hr 97.9 F-98.5 F 85-91 18-20 109-127/63-81 99-99 GENERAL: Awake, alert, and fully oriented, in no acute distress. HEAD: Normal with no signs of trauma. EYES: Pupils equal, round and reactive to light, extraocular movements intact, sclera anicteric. EARS, NOSE, THROAT: Oropharynx clear without exudates. Moist mucous membranes. NECK: Supple without lymphadenopathy. LUNGS: Breath sounds equal, clear to auscultation bilaterally. No wheezes, and no crackles. No accessory muscle use. HEART: Regular rate and rhythm, normal S1 and S2 without murmur, rub or gallop. ABDOMEN: Distended. Diffusely tender to palpation X4 quadrants. Tympanic to percussion X 4 quadrants. Hypoactive bowel sounds X4 quadrants. No guarding, no rebound tenderness. Two vertical scars noted from prior surgeries. Healed, clean dry. MUSCULOSKELETAL: Patient has improving motion of right lower extremity, limited due to pain and swelling. Patient freely moves B/L upper extremities and left lower extremity. UPPER EXTREMITIES: 2+ radial pulses b/l, warm, well-perfused. LOWER EXTREMITIES: 1+ dorsalis pedis pulses b/l. Right lower extremity erythematous with 8cm X 8cm area of tender induration. Tender to palpation. Pain with passive range of motion testing. 2+ pitting edema RLE, 2 + pitting edema LLE. NEUROLOGICAL: Cranial nerves II-XII intact. Normal speech. PSYCHIATRIC: Cooperative. Appropriate mood and affect. Laboratory Results - last 24 hr 11/19/18 11/21/18 11/21/18 14:00 05:15 05:15 WBC 6.4 RBC 2.30 L Hgb 8.5 L Hct 24.7 L MCV 107.2 H MCH 36.9 H MCHC 34.5 RDW 13.3 Plt Count 71 L MPV 7.0 L Sodium 130 L Potassium 4.0 Chloride 96 L Carbon Dioxide 30 Anion Gap 4 L BUN 11 Creatinine 0.7 Creat Clearance w eGFR > 60 Random Glucose 144 H Calcium 7.4 L Phosphorus 3.7 Magnesium 1.6 L Total Bilirubin 1.3 H AST 43 H ALT 19 Alkaline Phosphatase 150 H Total Protein 5.2 L Albumin 1.5 L Fluid Total Protein 0.8 Fluid Albumin 0.2 Body Fluid LDH Source 47 Fluid Amylase 16 Fluid Triglycerides 17 Active Medications Generic Name Dose Route Start Last Admin Trade Name Freq PRN Reason Stop Dose Admin Acetaminophen 325 mg 11/18/18 10:49 11/21/18 18:25 Tylenol - PO 325 mg Q6HPO PRN Administration PAIN LEVEL 4 - 6 Docusate Sodium 100 mg 11/19/18 21:46 Colace - PO BID PRN CONSTIPATION Furosemide 40 mg 11/21/18 11:15 11/21/18 12:11 Lasix - PO 40 mg DAILY ADRIAN Administration Heparin Sodium (Porcine) 5,000 unit 11/17/18 06:00 11/21/18 14:50 Heparin - SQ 5,000 unit TID ADRIAN Administration Lactulose 20 gm 11/21/18 14:00 11/21/18 14:52 Cephulac (Oral Use) PO 20 gm TID ADRIAN Administration Potassium Chloride 40 meq 11/17/18 13:45 11/21/18 10:37 K-Dur - PO 40 meq DAILY ADRIAN Administration Simethicone 80 mg 11/19/18 21:45 11/20/18 09:33 Mylicon - PO 80 mg Q4H PRN Administration GAS Spironolactone 100 mg 11/17/18 13:30 11/21/18 10:42 Aldactone - PO 100 mg DAILY ADRIAN Administration ASSESSMENT/PLAN: Patient is a 48 year old female with history of cirrhosis secondary to alcohol abuse, hepatitis C, presents with complaint of diffuse abdominal and lower extremity swelling. Anasarca -Likely secondary to cirrhosis, noted on CT abdomen and pelvis from 08/2018. -Abdominal pain is likely secondary to the anasarca. -Patient has diuresed >3L in past 24 hours. S/P paracentesis (11/09) with 5500cc serous fluid removed. F/U serology, and microbiology. -Spironolactone 100mg PO daily -Lactulose 20grams PO TID -Lasix 40mg PO daily -Pain control with Acetaminophen 325mg Q6H PO PRN. -GI consult (Dr. Romeo) appreciated. Lower extremity swelling -CT lower extremity shows ascites and extensive subucateous edema without discrete fluid collection suggestive of abscess/ hematoma. -Duplex US B/L lower extremities negative for DVT -Rocephin 2grams IV daily for likely cellulitis. History of ETOH abuse -Patient states last drink was 6 months ago. Currently not in withdrawal. -Counselled patient regarding importance of alcohol abstinence. -Monitor for withdrawal Hyponatremia -Likely secondary to volume overload. -Monitor CMP closely. Transaminitis -Labs not significantly different from prior studies. Likely chronic. -Trend CMP FEN -No IV fluids -Follow CMP -Sodium controlled diet Prophylaxis -Heparin 5000u subq TID Disposition -Admit to medical-surgical floor Visit type - Emergency Visit Emergency Visit: Yes ED Registration Date: 11/16/18 Care time: The patient presented to the Emergency Department on the above date and was hospitalized for further evaluation of their emergent condition. - New Patient This patient is new to me today: No - Critical Care Critical Care patient: No - Discharge Referral Referred to [facility] Med P.C.: No
[2018-11-22] MEDS: LACTULOSE 20 GM/30 ML UDC (FOR ORAL USE ONLY) PO SCH ×3 (06:21→21:44)
[2018-11-22] MEDS: HEPARIN NA (PORCINE) 5,000 UNITS/ML 1ML VIAL SQ SCH ×3 (06:21→21:44)
[2018-11-22] MEDS: ACETAMINOPHEN 325 MG TABLET (FP) PO PRN ×2 (06:22→20:58)
[2018-11-22] MEDS: oxyCODONE HCL 5 MG TABLET PO PRN (06:22)
[2018-11-22 06:28] LABS: HEMOGLOBIN 9.5 GM/dL (10.7-15.3); MCH 36.4 pg (25.7-33.7); MCHC 33.9 g/dl (32.0-36.0); MEAN CELL VOLUME 107.4 fl (80-96); MEAN PLT VOLUME 6.9 fl (7.5-11.1); PLATELET COUNT 87 K/MM3 (134-434); RBC 2.61 M/mm3 (3.60-5.2); RDW 13.6 % (11.6-15.6); WHITE BLOOD COUNT 6.5 K/mm3 (4.0-10.0)
[2018-11-22 06:40] LABS: INR 1.27 (0.83-1.09)
[2018-11-22 07:17] LABS: MAGNESIUM 1.7 mg/dL (1.8-2.4); PHOSPHOROUS 3.8 mg/dL (2.5-4.9)
[2018-11-22 08:29] LABS: ALBUMIN 1.7 g/dl (3.4-5.0); ALK PHOS 171 U/L (45-117); ANION GAP 5 MMOL/L (8-16); BILIRUBIN,TOTAL 1.5 mg/dL (0.2-1); BLOOD UREA NITROGEN 10 mg/dL (7-18); CALCIUM 7.6 mg/dL (8.5-10.1); CHLORIDE 97 mmol/L (98-107); CO2 30 mmol/L (21-32); CREATININE 0.6 mg/dL (0.55-1.3); GLUCOSE,RANDOM 83 mg/dL (74-106); POTASSIUM 4.4 mmol/L (3.5-5.1); SGOT/AST 53 U/L (15-37); SGPT/ALT 23 U/L (13-61); SODIUM 132 mmol/L (136-145); TOT PROT 5.9 g/dl (6.4-8.2)
[2018-11-22] MEDS ORDERED: DEXTROSE 5%-WATER 100 ML IVPB ONE (09:08)
[2018-11-22] MEDS ORDERED: ACYCLOVIR 400 MG TABLET PO SCH (10:00)
[2018-11-22] MEDS: CEFTRIAXONE 2 GM in DEXTROSE 5%-WATER 100 ML IVPB SCH (10:03)
[2018-11-22] MEDS: SPIRONOLACTONE 25 MG TABLET (FP) PO SCH (10:03)
[2018-11-22] MEDS: FUROSEMIDE 40 MG TABLET (FP) PO SCH (10:03)
[2018-11-22] MEDS: POTASSIUM CHLORIDE TABS 20 MEQ TABLET.ER (FP) PO SCH (10:03)
[2018-11-22] MEDS: MAGNESIUM OXIDE 400 MG TABLET (FP) PO SCH ×2 (10:04→21:44)
--- NOTE | 2018-11-22 14:39 | PN ---
Progress Note, Physician History of Present Illness: patient stable no new issues abd soft leg cellulitis now localizing - Current Medication List Current Medications: Active Medications Acetaminophen (Tylenol -) 325 mg PO Q6HPO PRN PRN Reason: PAIN LEVEL 4 - 6 Last Admin: 11/22/18 06:22 Dose: 325 mg Acyclovir (Zovirax -) 400 mg PO DAILY [facility] Stop: 11/26/18 23:59 Docusate Sodium (Colace -) 100 mg PO BID PRN PRN Reason: CONSTIPATION Furosemide (Lasix -) 40 mg PO DAILY [facility] Last Admin: 11/22/18 10:03 Dose: 40 mg Heparin Sodium (Porcine) (Heparin -) 5,000 unit SQ TID [facility] Last Admin: 11/22/18 14:02 Dose: 5,000 unit Ceftriaxone Sodium 2 gm/ (Dextrose) 100 mls @ 200 mls/hr IVPB DAILY [facility]; Protocol Last Admin: 11/22/18 10:03 Dose: 200 mls/hr Lactulose (Cephulac (Oral Use)) 20 gm PO TID [facility] Last Admin: 11/22/18 14:03 Dose: 20 gm Magnesium Oxide (Mag-Ox -) 400 mg PO BID [facility] Last Admin: 11/22/18 10:04 Dose: 400 mg Potassium Chloride (K-Dur -) 40 meq PO DAILY [facility] Last Admin: 11/22/18 10:03 Dose: 40 meq Simethicone (Mylicon -) 80 mg PO Q4H PRN PRN Reason: GAS Last Admin: 11/20/18 09:33 Dose: 80 mg Spironolactone (Aldactone -) 100 mg PO DAILY [facility] Last Admin: 11/22/18 10:03 Dose: 100 mg Tramadol HCl (Ultram -) 50 mg PO Q6H PRN PRN Reason: PAIN LEVEL 7 - 10 - Objective Vital Signs: Vital Signs Temperature 98.2 F 11/22/18 10:00 Pulse Rate 87 11/22/18 10:00 Respiratory Rate 20 11/22/18 10:00 Blood Pressure 120/75 11/22/18 10:00 O2 Sat by Pulse Oximetry (%) 95 11/22/18 09:00 Constitutional: Yes: Calm, Mild Distress Cardiovascular: Yes: Regular Rate and Rhythm Respiratory: Yes: Regular, CTA Bilaterally Gastrointestinal: Yes: Normal Bowel Sounds, Soft, Ascites Musculoskeletal: Yes: Other Extremities: Yes: Erythema, Other (and cellulitis of the left thigh) Neurological: Yes: Alert, Oriented Psychiatric: Yes: Alert, Oriented Labs: CBC, BMP 11/22/18 05:00 11/22/18 05:00 INR, PTT INR 1.27 (0.83-1.09) H 11/22/18 05:00 Assessment/Plan Patient is a 48 year old female with history of cirrhosis secondary to alcohol abuse, hepatitis C, presents with complaint of diffuse abdominal and lower extremity swelling. ascites cellulitis of the left lower ext b/l swelling of the leg etoh abuse transaminitis plan continue abx will see how the swelling progresses now will have to figure out the plan rest as per the team
--- NOTE | 2018-11-22 17:17 | PN ---
Teaching Attending Note Name of Resident: Horace Maurice ATTENDING PHYSICIAN STATEMENT I saw and evaluated the patient. I reviewed the resident's note and discussed the case with the resident. I agree with the resident's findings and plan as documented. SUBJECTIVE: Complains of ongoing R thigh pain and tenderness. No fever/chills. OBJECTIVE: Afebrile, Hemodynamically Stable. Last Vital Signs Temp Pulse Resp BP Pulse Ox 98.1 F 83 20 121/60 95 11/22/18 17:09 11/22/18 17:09 11/22/18 17:09 11/22/18 17:11/22/18 09:00 HEENT- Atraumatic, Normocephalic. Heart - S1, S2, RRR Lungs - good air entry bilaterally - no crackles/wheeze. Abdomen -soft, non-tender. Bowel Sounds normal. Extremities - edema+, RLE (thigh, inner aspect) erythematous, swollen, tender+, clinical abscess. No purulent discharge. Neuro - AAO x 3. No asterixis. Tone/Power normal all 4 extremities. Laboratory Results - last 24 hr 11/22/18 11/22/18 11/22/18 05:00 05:00 05:00 WBC RBC Hgb Hct MCV MCH MCHC RDW Plt Count MPV PT with INR 15.00 H INR 1.27 H Sodium 132 L Potassium 4.4 Chloride 97 L Carbon Dioxide 30 Anion Gap 5 L BUN 10 Creatinine 0.6 Creat Clearance w eGFR > 60 Random Glucose 83 Calcium 7.6 L Phosphorus 3.8 Magnesium 1.7 L Total Bilirubin 1.5 H AST 53 H ALT 23 Alkaline Phosphatase 171 H Total Protein 5.9 L Albumin 1.7 L Vitamin B12 2410 H Serum Folate 7 11/22/18 05:00 WBC 6.5 RBC 2.61 L Hgb 9.5 L Hct 28.0 L MCV 107.4 H MCH 36.4 H MCHC 33.9 RDW 13.6 Plt Count 87 L D MPV 6.9 L PT with INR INR Sodium Potassium Chloride Carbon Dioxide Anion Gap BUN Creatinine Creat Clearance w eGFR Random Glucose Calcium Phosphorus Magnesium Total Bilirubin AST ALT Alkaline Phosphatase Total Protein Albumin Vitamin B12 Serum Folate Current Medications Generic Name Dose Route Start Last Admin Trade Name Freq PRN Reason Stop Dose Admin Acetaminophen 325 mg 11/18/18 10:49 11/22/18 06:22 Tylenol - PO 325 mg Q6HPO PRN Administration PAIN LEVEL 4 - 6 Acyclovir 400 mg 11/22/18 10:07 Zovirax - PO 11/26/18 23:59 DAILY [facility] Docusate Sodium 100 mg 11/19/18 21:46 Colace - PO BID PRN CONSTIPATION Furosemide 40 mg 11/21/18 11:15 11/22/18 10:03 Lasix - PO 40 mg DAILY ADRIAN Administration Heparin Sodium (Porcine) 5,000 unit 11/17/18 06:00 11/22/18 14:02 Heparin - SQ 5,000 unit TID ADRIAN Administration Ceftriaxone Sodium 2 gm/ 100 mls @ 200 mls/hr 11/22/18 10:00 11/22/18 10:03 Dextrose IVPB 200 mls/hr DAILY ADRIAN Administration Protocol Lactulose 20 gm 11/21/18 14:00 11/22/18 14:03 Cephulac (Oral Use) PO 20 gm TID ADRIAN Administration Magnesium Oxide 400 mg 11/22/18 10:00 11/22/18 10:04 Mag-Ox - PO 400 mg BID ADRIAN Administration Potassium Chloride 40 meq 11/17/18 13:45 11/22/18 10:03 K-Dur - PO 40 meq DAILY ADRIAN Administration Simethicone 80 mg 11/19/18 21:45 11/20/18 09:33 Mylicon - PO 80 mg Q4H PRN Administration GAS Spironolactone 100 mg 11/17/18 13:30 11/22/18 10:03 Aldactone - PO 100 mg DAILY ADRIAN Administration Tramadol HCl 50 mg 11/22/18 13:11 Ultram - PO Q6H PRN PAIN LEVEL 7 - 10 ASSESSMENT AND PLAN: 48 year old female with Liver Cirrhosis secondary to Chronic Hepatitis C and Alcohol abuse, presented with Abdominal distension and peripheral edema, admitted 11/16. 1. Ascites and Peripheral edema secondary to Portal Hypertension and hypoalbuminemia sec to Liver Cirrhosis due to HepC/Alcohol abuse s/p Paracentesis with 5.5L drained, culture negative so far. s/p IV Lasix diuresis for 01/24. Venous Duplex LEs neg for DVT. Continue oral Spironolactone and Lasix. Lactulose 20mg TID to ensure 3-4 soft BMs daily. GI following. Last drink 6 months ago. 2. Cellulitis RLE, likely abscess clinically - prior US neg for abscess - will repeat US. Continue Ceftriaxone. ID following. If abscess on US, will consult surgery. 3. Chronic Macrocytic Anemia/Thrombocytopenia (H/H 9.5/28, MCV 107, Plts 87), secondary to Liver Cirrhosis - no evidence of bleeding. INR 1.27 4. Hypomagnesemia - will replete. 5. 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 DVT Px - Heparin SQ
--- NOTE | 2018-11-22 17:42 | PN ---
Physical Exam: SUBJECTIVE: Patient seen and examined at bedside this morning. She endorses improvement in right lower extremity pain, and increased range of motion. Denies fevers, chills, shortness of breath, chest pain, palpitations, abdominal pain, nausea, vomiting. OBJECTIVE: Vital Signs Period Temp Pulse Resp BP Sys/Mittal Pulse Ox Last 24 Hr 97.6 F-98.8 F 83-94 20-20 108-125/60-75 95-97 GENERAL: Awake, alert, and fully oriented, in no acute distress. HEAD: Normal with no signs of trauma. EYES: Pupils equal, round and reactive to light, extraocular movements intact, sclera anicteric. EARS, NOSE, THROAT: Oropharynx clear without exudates. Moist mucous membranes. NECK: Supple without lymphadenopathy. LUNGS: Breath sounds equal, clear to auscultation bilaterally. No wheezes, and no crackles. No accessory muscle use. HEART: Regular rate and rhythm, normal S1 and S2 without murmur, rub or gallop. ABDOMEN: Distended. Diffusely tender to palpation X4 quadrants. Tympanic to percussion X 4 quadrants. Hypoactive bowel sounds X4 quadrants. No guarding, no rebound tenderness. Two vertical scars noted from prior surgeries. Healed, clean dry. MUSCULOSKELETAL: Patient has improving motion of right lower extremity, limited due to pain and swelling. Patient freely moves B/L upper extremities and left lower extremity. UPPER EXTREMITIES: 2+ radial pulses b/l, warm, well-perfused. LOWER EXTREMITIES: 1+ dorsalis pedis pulses b/l. Right lower extremity erythematous with 8cm X 8cm area of tender induration. Tender to palpation. Pain with passive range of motion testing. 2+ pitting edema RLE, 2 + pitting edema LLE. NEUROLOGICAL: Cranial nerves II-XII intact. Normal speech. PSYCHIATRIC: Cooperative. Appropriate mood and affect. Laboratory Results - last 24 hr 11/22/18 11/22/18 11/22/18 05:00 05:00 05:00 WBC RBC Hgb Hct MCV MCH MCHC RDW Plt Count MPV PT with INR 15.00 H INR 1.27 H Sodium 132 L Potassium 4.4 Chloride 97 L Carbon Dioxide 30 Anion Gap 5 L BUN 10 Creatinine 0.6 Creat Clearance w eGFR > 60 Random Glucose 83 Calcium 7.6 L Phosphorus 3.8 Magnesium 1.7 L Total Bilirubin 1.5 H AST 53 H ALT 23 Alkaline Phosphatase 171 H Total Protein 5.9 L Albumin 1.7 L Vitamin B12 2410 H Serum Folate 7 11/22/18 05:00 WBC 6.5 RBC 2.61 L Hgb 9.5 L Hct 28.0 L MCV 107.4 H MCH 36.4 H MCHC 33.9 RDW 13.6 Plt Count 87 L D MPV 6.9 L PT with INR INR Sodium Potassium Chloride Carbon Dioxide Anion Gap BUN Creatinine Creat Clearance w eGFR Random Glucose Calcium Phosphorus Magnesium Total Bilirubin AST ALT Alkaline Phosphatase Total Protein Albumin Vitamin B12 Serum Folate Active Medications Generic Name Dose Route Start Last Admin Trade Name Freq PRN Reason Stop Dose Admin Acetaminophen 325 mg 11/18/18 10:49 11/22/18 06:22 Tylenol - PO 325 mg Q6HPO PRN Administration PAIN LEVEL 4 - 6 Acyclovir 400 mg 11/22/18 10:07 Zovirax - PO 11/26/18 23:59 DAILY ADRIAN Docusate Sodium 100 mg 11/19/18 21:46 Colace - PO BID PRN CONSTIPATION Furosemide 40 mg 11/21/18 11:15 11/22/18 10:03 Lasix - PO 40 mg DAILY ADRIAN Administration Heparin Sodium (Porcine) 5,000 unit 11/17/18 06:00 11/22/18 14:02 Heparin - SQ 5,000 unit TID ADRIAN Administration Ceftriaxone Sodium 2 gm/ 100 mls @ 200 mls/hr 11/22/18 10:00 11/22/18 10:03 Dextrose IVPB 200 mls/hr DAILY ADRIAN Administration Protocol Lactulose 20 gm 11/21/18 14:00 11/22/18 14:03 Cephulac (Oral Use) PO 20 gm TID ADRIAN Administration Magnesium Oxide 400 mg 11/22/18 10:00 11/22/18 10:04 Mag-Ox - PO 400 mg BID ADRIAN Administration Potassium Chloride 40 meq 11/17/18 13:45 11/22/18 10:03 K-Dur - PO 40 meq DAILY ADRIAN Administration Simethicone 80 mg 11/19/18 21:45 11/20/18 09:33 Mylicon - PO 80 mg Q4H PRN Administration GAS Spironolactone 100 mg 11/17/18 13:30 11/22/18 10:03 Aldactone - PO 100 mg DAILY ADRIAN Administration Tramadol HCl 50 mg 11/22/18 13:11 Ultram - PO Q6H PRN PAIN LEVEL 7 - 10 ASSESSMENT/PLAN: Patient is a 48 year old female with history of cirrhosis secondary to alcohol abuse, hepatitis C, presents with complaint of diffuse abdominal and lower extremity swelling. Anasarca -Likely secondary to cirrhosis, noted on CT abdomen and pelvis from 08/2018. -Abdominal pain is likely secondary to the anasarca. -S/P paracentesis (11/09) with 5500cc serous fluid removed. F/U serology, and microbiology. -Spironolactone 100mg PO daily -Lactulose 20grams PO TID -Lasix 40mg PO daily -Pain control with Acetaminophen 325mg Q6H PO PRN. -Tramadol 50mg PO Q6H -GI consult (Dr. Romeo) appreciated. Considering history of elevated CA 19-9 and CA [address] abdomen pelvis to rule out intra abdominal pathology that may be contributing etiology to ascites. Consider [employer] consult, pending results. Lower extremity swelling -CT lower extremity shows ascites and extensive subucateous edema without discrete fluid collection suggestive of abscess/ hematoma. -Duplex US B/L lower extremities negative for DVT -Rocephin 2grams IV daily for likely cellulitis. -US soft tissue shows fluid collection, possibly suggestive of abscess formation. F/U surgical consult. History of ETOH abuse -Patient states last drink was 6 months ago. Currently not in withdrawal. -Counselled patient regarding importance of alcohol abstinence. -Monitor for withdrawal Hyponatremia -Likely secondary to volume overload. -Monitor CMP closely. Transaminitis -Labs not significantly different from prior studies. Likely chronic. -Trend CMP FEN -No IV fluids -Follow CMP -Sodium controlled diet Prophylaxis -Heparin 5000u subq TID Disposition -Continue care in medical-surgical floor Visit type - Emergency Visit Emergency Visit: Yes ED Registration Date: 11/16/18 Care time: The patient presented to the Emergency Department on the above date and was hospitalized for further evaluation of their emergent condition. - New Patient This patient is new to me today: No - Critical Care Critical Care patient: No - Discharge Referral Referred to [facility] Med [facility].: No
[2018-11-23] MEDS: LACTULOSE 20 GM/30 ML UDC (FOR ORAL USE ONLY) PO SCH ×3 (05:39→21:13)
[2018-11-23] MEDS: HEPARIN NA (PORCINE) 5,000 UNITS/ML 1ML VIAL SQ SCH ×3 (05:39→21:15)
[2018-11-23 06:55] LABS: HEMATOCRIT 26.4 % (32.4-45.2); HEMOGLOBIN 8.9 GM/dL (10.7-15.3); MCH 36.3 pg (25.7-33.7); MCHC 33.8 g/dl (32.0-36.0); MEAN CELL VOLUME 107.6 fl (80-96); PLATELET COUNT 86 K/MM3 (134-434); RBC 2.46 M/mm3 (3.60-5.2); RDW 13.5 % (11.6-15.6); WHITE BLOOD COUNT 5.4 K/mm3 (4.0-10.0)
[2018-11-23 08:50] LABS: ALBUMIN 1.5 g/dl (3.4-5.0); ALK PHOS 152 U/L (45-117); ANION GAP 4 MMOL/L (8-16); BILIRUBIN,TOTAL 1.3 mg/dL (0.2-1); BLOOD UREA NITROGEN 13 mg/dL (7-18); CALCIUM 7.8 mg/dL (8.5-10.1); CHLORIDE 100 mmol/L (98-107); CO2 30 mmol/L (21-32); CREATININE 0.7 mg/dL (0.55-1.3); GLUCOSE,RANDOM 122 mg/dL (74-106); MAGNESIUM 1.7 mg/dL (1.8-2.4); PHOSPHOROUS 4.2 mg/dL (2.5-4.9); POTASSIUM 4.2 mmol/L (3.5-5.1); SGOT/AST 48 U/L (15-37); SGPT/ALT 23 U/L (13-61); SODIUM 134 mmol/L (136-145); TOT PROT 5.8 g/dl (6.4-8.2)
[2018-11-23] MEDS ORDERED: DEXTROSE 5%-WATER 100 ML IVPB ONE (08:55)
[2018-11-23] MEDS: CEFTRIAXONE 2 GM in DEXTROSE 5%-WATER 100 ML IVPB SCH (09:31)
[2018-11-23] MEDS: ACETAMINOPHEN 325 MG TABLET (FP) PO PRN ×2 (09:31→17:34)
[2018-11-23] MEDS: POTASSIUM CHLORIDE TABS 20 MEQ TABLET.ER (FP) PO SCH (09:32)
[2018-11-23] MEDS: FUROSEMIDE 40 MG TABLET (FP) PO SCH (09:32)
[2018-11-23] MEDS: SPIRONOLACTONE 25 MG TABLET (FP) PO SCH (09:33)
[2018-11-23] MEDS: MAGNESIUM OXIDE 400 MG TABLET (FP) PO SCH ×2 (09:33→21:16)
[2018-11-23] MEDS: ACYCLOVIR 200 MG CAPSULE PO SCH (09:33)
--- NOTE | 2018-11-23 12:02 | PN ---
Progress Note, Physician History of Present Illness: patient stable no new issues abd soft localized collection - Current Medication List Current Medications: Active Medications Acetaminophen (Tylenol -) 325 mg PO Q6HPO PRN PRN Reason: PAIN LEVEL 4 - 6 Last Admin: 11/23/18 09:31 Dose: 325 mg Acyclovir (Zovirax -) 400 mg PO DAILY [facility] Stop: 11/26/18 23:59 Last Admin: 11/23/18 09:33 Dose: 400 mg Docusate Sodium (Colace -) 100 mg PO BID PRN PRN Reason: CONSTIPATION Furosemide (Lasix -) 40 mg PO DAILY [facility] Last Admin: 11/23/18 09:32 Dose: 40 mg Heparin Sodium (Porcine) (Heparin -) 5,000 unit SQ TID [facility] Last Admin: 11/23/18 05:39 Dose: 5,000 unit Ceftriaxone Sodium 2 gm/ (Dextrose) 100 mls @ 200 mls/hr IVPB DAILY [facility]; Protocol Last Admin: 11/23/18 09:31 Dose: 200 mls/hr Lactulose (Cephulac (Oral Use)) 20 gm PO TID [facility] Last Admin: 11/23/18 05:39 Dose: Not Given Magnesium Oxide (Mag-Ox -) 400 mg PO BID [facility] Last Admin: 11/23/18 09:33 Dose: 400 mg Potassium Chloride (K-Dur -) 40 meq PO DAILY [facility] Last Admin: 11/23/18 09:32 Dose: 40 meq Simethicone (Mylicon -) 80 mg PO Q4H PRN PRN Reason: GAS Last Admin: 11/20/18 09:33 Dose: 80 mg Spironolactone (Aldactone -) 100 mg PO DAILY [facility] Last Admin: 11/23/18 09:33 Dose: 100 mg Tramadol HCl (Ultram -) 50 mg PO Q6H PRN PRN Reason: PAIN LEVEL 7 - 10 - Objective Vital Signs: Vital Signs Temperature 97.9 F 11/23/18 10:00 Pulse Rate 79 11/23/18 10:00 Respiratory Rate 20 11/23/18 10:00 Blood Pressure 124/72 11/23/18 10:00 O2 Sat by Pulse Oximetry (%) 98 11/23/18 09:00 Constitutional: Yes: Calm, Moderate Distress Cardiovascular: Yes: Regular Rate and Rhythm Respiratory: Yes: Regular, CTA Bilaterally Gastrointestinal: Yes: Normal Bowel Sounds, Soft Musculoskeletal: Yes: WNL Extremities: Yes: Erythema (on the rt thigh), Other Neurological: Yes: Alert, Oriented Psychiatric: Yes: Alert, Oriented Labs: CBC, BMP 11/23/18 05:15 11/23/18 05:15 INR, PTT INR 1.27 (0.83-1.09) H 11/22/18 05:00 Assessment/Plan Patient is a 48 year old female with history of cirrhosis secondary to alcohol abuse, hepatitis C, presents with complaint of diffuse abdominal and lower extremity swelling. ascites cellulitis of the left lower ext b/l swelling of the leg etoh abuse transaminitis plan continue abx collection formation rest as per the team surgery input
--- NOTE | 2018-11-23 12:34 | CONSULT ---
Consult Consult Specialty:: General Surgery Reason for Consultation:: thigh abscess ? - History of Present Illness Chief Complaint: right leg pain History of Present Illness: 48 yo female PMH cirrhosis secondary to alcohol abuse, hepatitis C, presents with complaint of diffuse abdominal and lower extremity swelling. States the that symptoms have been ongoing over the past 6 months, however worsened over the past two weeks. She endorses that she has gained 40lbs in that time due to the fluid accumulation. She admits diffuse abdominal pain that is described as pressure-like. Further, she admits pain and swelling in her right leg (from groin radiating to the knee) worse than her left leg that is preventing her from ambulating. She described a fall hitting her right knee and thigh. She states the pain occurs with rest, even when she is not attempting to more the affected extremity. Patient states that she has been compliant with her home Lasix. She endorses abstinence from alcohol over the past 6 months. - History Source History Provided By: Patient, Medical Record Limitations to Obtaining History: No Limitations - Past Medical History DIRECTOR OF MEDIA: Yes: Peripheral Neuropathy ...: No - Alcohol/Substance Use Hx Alcohol Use: Yes - Smoking History Smoking history: Current every day smoker Have you smoked in the past 12 months: Yes Aproximately how many cigarettes per day: 2 Home Medications - Allergies Allergies/Adverse Reactions: Allergies Allergy/AdvReac Type Severity Reaction Status Date / Time Penicillins Allergy Verified 11/16/18 13:07 - Home Medications Home Medications: Ambulatory Orders Furosemide 20 mg PO BID 11/19/18 Lactulose 30 mg PO BID 11/19/18 Spironolactone 25 mg PO BID 11/19/18 Review of Systems - Review of Systems Constitutional: denies: Chills, Fever Eyes: denies: Blind Spots, Recent Change in Vision HENT: denies: Difficult Swallowing, Throat Pain, Toothache Neck: denies: Decreased ROM, Tenderness Cardiovascular: denies: Chest Pain, Palpitations Respiratory: denies: Cough, SOB Gastrointestinal: reports: Abdominal Pain, Bloating. denies: Constipation, Diarrhea Genitourinary: denies: Flank Pain, Frequency, Incontinence, Lesions Breasts: reports: No Symptoms Reported. denies: Skin Changes Musculoskeletal: denies: Joint Swelling, Muscle Pain, Muscle Cramps Integumentary: denies: Blister, Bruising, Lump, Pallor Neurological: denies: Change in LOC, Incoordination, Seizure, Syncope Endocrine: reports: Unexplained Weight Gain. denies: Unexplained Weight Loss Hematology/Lymphatic: reports: Easily Bruised. denies: Swollen Glands Psychiatric: denies: Anxiety, Depression Physical Exam Vital Signs: Vital Signs Temperature 97.9 F 11/23/18 10:00 Pulse Rate 79 11/23/18 10:00 Respiratory Rate 20 11/23/18 10:00 Blood Pressure 124/72 11/23/18 10:00 O2 Sat by Pulse Oximetry (%) 98 11/23/18 09:00 Vital Signs Period Temp Pulse Resp BP Sys/Mittal Pulse Ox Last 24 Hr 97.9 F-98.3 F 80-89 16-20 120-133/65-76 97 Constitutional: Yes: Well Nourished, No Distress, Calm, Obese Eyes: Yes: Conjunctiva Clear, EOM Intact HENT: Yes: Atraumatic, Normocephalic Neck: Yes: Supple, Trachea Midline Cardiovascular: Yes: Regular Rate and Rhythm, S1, S2 Respiratory: Yes: Regular, CTA Bilaterally, Cough. No: Rales, Stridor Gastrointestinal: Yes: Normal Bowel Sounds, Soft, Abdomen, Obese, Ascites. No: Tenderness, Tenderness, Epigastrium, Tenderness, Rebound ...Rectal Exam: Yes: Deferred Renal/: No: CVA Tenderness - Left, CVA Tenderness - Right Musculoskeletal: No: Muscle Pain, Muscle Weakness Extremities: Yes: Other (Right arteromedial thigh 4cm circular proninence circumscibed and discrete with overlying ecchymosis and no real erythema. non fluctuant. Tender to touch). No: Cool, Cyanosis Edema: No Peripheral Pulses WNL: Yes Integumentary: Yes: Bruising. No: Erythema, Jaundice Neurological: Yes: Alert, Oriented Psychiatric: Yes: Alert, Oriented Labs: CBC, BMP 11/23/18 05:15 11/23/18 05:15 Imaging - Results Cat Scan: Report Reviewed (ascites), Image Reviewed Ultrasound: Report Reviewed, Image Reviewed (No discret abscess) Problem List - Problems (1) Traumatic hematoma of thigh Assessment/Plan: 48 yo female with MMP including cirrhosis right thigh medial hematoma, low index of suspicion for abscess, given histiy of trauma during fall. no leukocutosis, thrombocytopenis and coagulopathic. no acute sugical intervention. trend labs correct coagulopathy if possible warm compresses for comfort right leg elevation will follow peripheral can re-image the leg if index of suspicion increases Thank you for the opportunity to participate in the care of this patient. Code(s): S70.10XA - CONTUSION OF UNSPECIFIED THIGH, INITIAL ENCOUNTER Qualifiers: Encounter type: initial encounter Laterality: right Qualified Code(s): S70.11XA - Contusion of right thigh, initial encounter (2) Pain in right thigh Code(s): M79.651 - PAIN IN RIGHT THIGH (3) Anasarca Code(s): R60.1 - GENERALIZED EDEMA (4) Hepatic cirrhosis due to chronic hepatitis C infection Code(s): B18.2 - CHRONIC VIRAL HEPATITIS C; K74.60 - UNSPECIFIED CIRRHOSIS OF LIVER (5) Hepatitis C Code(s): B19.20 - UNSPECIFIED VIRAL HEPATITIS C WITHOUT HEPATIC COMA (6) Coagulopathy Code(s): D68.9 - COAGULATION DEFECT, UNSPECIFIED
--- NOTE | 2018-11-23 18:24 | PN ---
Physical Exam: SUBJECTIVE: Patient seen and examined at bedside this morning. She appears slightly more sleepy today- states she did not sleep well as her neighbor is loud at night. She endorses improvement in right lower extremity pain.. Denies fevers, chills, shortness of breath, chest pain, palpitations, abdominal pain, nausea, vomiting. Endorsed three soft bowel movements overnight. OBJECTIVE: Vital Signs Period Temp Pulse Resp BP Sys/Mittal Pulse Ox Last 24 Hr 97.8 F-98.3 F 79-91 20-20 96-125/57-72 95-98 GENERAL: Awake, alert, and fully oriented, in no acute distress. HEAD: Normal with no signs of trauma. EYES: Pupils equal, round and reactive to light, extraocular movements intact, sclera anicteric. EARS, NOSE, THROAT: Oropharynx clear without exudates. Moist mucous membranes. NECK: Supple without lymphadenopathy. LUNGS: Breath sounds equal, clear to auscultation bilaterally. No wheezes, and no crackles. No accessory muscle use. HEART: Regular rate and rhythm, normal S1 and S2 without murmur, rub or gallop. ABDOMEN: Distended. Diffusely tender to palpation X4 quadrants. Tympanic to percussion X 4 quadrants. Hypoactive bowel sounds X4 quadrants. No guarding, no rebound tenderness. Two vertical scars noted from prior surgeries. Healed, clean dry. MUSCULOSKELETAL: Patient has improving motion of right lower extremity, limited due to pain and swelling. Patient freely moves B/L upper extremities and left lower extremity. UPPER EXTREMITIES: 2+ radial pulses b/l, warm, well-perfused. LOWER EXTREMITIES: 1+ dorsalis pedis pulses b/l. Right lower extremity erythematous with 8cm X 8cm area of tender induration. Tender to palpation. Pain with passive range of motion testing. 2+ pitting edema RLE, 2 + pitting edema LLE. NEUROLOGICAL: Cranial nerves II-XII intact. Normal speech. PSYCHIATRIC: Cooperative. Appropriate mood and affect. Laboratory Results - last 24 hr 11/22/18 11/23/18 11/23/18 20:45 05:15 05:15 WBC 5.4 RBC 2.46 L Hgb 8.9 L Hct 26.4 L MCV 107.6 H MCH 36.3 H MCHC 33.8 RDW 13.5 Plt Count 86 L MPV 7.0 L Sodium 134 L Potassium 4.2 Chloride 100 Carbon Dioxide 30 Anion Gap 4 L BUN 13 Creatinine 0.7 Creat Clearance w eGFR > 60 Random Glucose 122 H Calcium 7.8 L Phosphorus 4.2 Magnesium 1.7 L Total Bilirubin 1.3 H AST 48 H ALT 23 Alkaline Phosphatase 152 H Total Protein 5.8 L Albumin 1.5 L Urine HCG, Qual Negative Active Medications Generic Name Dose Route Start Last Admin Trade Name Freq PRN Reason Stop Dose Admin Acetaminophen 325 mg 11/18/18 10:49 11/23/18 17:34 Tylenol - PO 325 mg Q6HPO PRN Administration PAIN LEVEL 4 - 6 Acyclovir 400 mg 11/22/18 10:07 11/23/18 09:33 Zovirax - PO 11/26/18 23:59 400 mg DAILY ADRIAN Administration Docusate Sodium 100 mg 11/19/18 21:46 Colace - PO BID PRN CONSTIPATION Furosemide 40 mg 11/21/18 11:15 11/23/18 09:32 Lasix - PO 40 mg DAILY ADRIAN Administration Heparin Sodium (Porcine) 5,000 unit 11/17/18 06:00 11/23/18 13:29 Heparin - SQ Not Given TID ADRIAN Ceftriaxone Sodium 2 gm/ 100 mls @ 200 mls/hr 11/22/18 10:00 11/23/18 09:31 Dextrose IVPB 200 mls/hr DAILY ADRIAN Administration Protocol Lactulose 20 gm 11/21/18 14:00 11/23/18 13:29 Cephulac (Oral Use) PO 20 gm TID ADRIAN Administration Magnesium Oxide 400 mg 11/22/18 10:00 11/23/18 09:33 Mag-Ox - PO 400 mg BID ADRIAN Administration Potassium Chloride 40 meq 11/17/18 13:45 11/23/18 09:32 K-Dur - PO 40 meq DAILY ADRIAN Administration Simethicone 80 mg 11/19/18 21:45 11/20/18 09:33 Mylicon - PO 80 mg Q4H PRN Administration GAS Spironolactone 100 mg 11/17/18 13:30 11/23/18 09:33 Aldactone - PO 100 mg DAILY ADRIAN Administration Tramadol HCl 50 mg 11/22/18 13:11 Ultram - PO Q6H PRN PAIN LEVEL 7 - 10 ASSESSMENT/PLAN: Patient is a 48 year old female with history of cirrhosis secondary to alcohol abuse, hepatitis C, presents with complaint of diffuse abdominal and lower extremity swelling. Anasarca -Likely secondary to cirrhosis, noted on CT abdomen and pelvis from 08/2018. -Abdominal pain is likely secondary to the anasarca. -S/P paracentesis (11/09) with 5500cc serous fluid removed. F/U serology, and microbiology. -Spironolactone 100mg PO daily -Lactulose 20grams PO TID -Lasix 40mg PO daily -Pain control with Acetaminophen 325mg Q6H PO PRN. -Tramadol 50mg PO Q6H -GI consult (Dr. Romeo) appreciated. Considering history of elevated CA 19-9 and CA [address] abdomen pelvis to rule out intra abdominal pathology that may be contributing etiology to ascites. Consider BUSINESS SUPPORT consult, pending results. Lower extremity swelling -CT lower extremity shows ascites and extensive subucateous edema without discrete fluid collection suggestive of abscess/ hematoma. -Duplex US B/L lower extremities negative for DVT -Rocephin 2grams IV daily for likely cellulitis. -US soft tissue shows fluid collection, possibly suggestive of abscess formation. -F/U surgical consult (Dr. Monique) History of ETOH abuse -Patient states last drink was 6 months ago. Currently not in withdrawal. -Counselled patient regarding importance of alcohol abstinence. -Monitor for withdrawal Hyponatremia -Likely secondary to volume overload. -Monitor CMP closely. Transaminitis -Labs not significantly different from prior studies. Likely chronic. -Trend CMP FEN -No IV fluids -Follow CMP -Sodium controlled diet Prophylaxis -Heparin 5000u subq TID Disposition -Continue care in medical-surgical floor Visit type - Emergency Visit Emergency Visit: Yes ED Registration Date: 11/16/18 Care time: The patient presented to the Emergency Department on the above date and was hospitalized for further evaluation of their emergent condition. - New Patient This patient is new to me today: No - Critical Care Critical Care patient: No - Discharge Referral Referred to [facility] Med P.C.: No
--- NOTE | 2018-11-23 18:27 | PN ---
Teaching Attending Note Name of Resident: Horace Maurice ATTENDING PHYSICIAN STATEMENT I saw and evaluated the patient. I reviewed the resident's note and discussed the case with the resident. I agree with the resident's findings and plan as documented. SUBJECTIVE: Tired, did not sleep last night. Complains of ongoing RLE pain/ tenderness in region of inner thigh. No fever/chills/nausea/vomiting. OBJECTIVE: Afebrile, Hemodynamically Stable. Last Vital Signs Temp Pulse Resp BP Pulse Ox 97.8 F 81 20 125/65 98 11/23/18 13:56 11/23/18 13:56 11/23/18 13:56 11/23/18 13:56 11/23/18 09:00 HEENT- Atraumatic, Normocephalic. Heart - S1, S2, RRR Lungs - good air entry bilaterally - no crackles/wheeze. Abdomen -soft, mild generalized tenderness. No guarding/rebound. Bowel Sounds normal. Extremities - edema+, RLE (thigh, inner aspect) erythematous, swollen, tender+, clinically an abscess. No purulent discharge. Neuro - AAO x 3. No asterixis. Tone/Power normal all 4 extremities. Laboratory Results - last 24 hr 11/22/18 11/23/18 11/23/18 20:45 05:15 05:15 WBC 5.4 RBC 2.46 L Hgb 8.9 L Hct 26.4 L MCV 107.6 H MCH 36.3 H MCHC 33.8 RDW 13.5 Plt Count 86 L MPV 7.0 L Sodium 134 L Potassium 4.2 Chloride 100 Carbon Dioxide 30 Anion Gap 4 L BUN 13 Creatinine 0.7 Creat Clearance w eGFR > 60 Random Glucose 122 H Calcium 7.8 L Phosphorus 4.2 Magnesium 1.7 L Total Bilirubin 1.3 H AST 48 H ALT 23 Alkaline Phosphatase 152 H Total Protein 5.8 L Albumin 1.5 L Urine HCG, Qual Negative Current Medications Generic Name Dose Route Start Last Admin Trade Name Freq PRN Reason Stop Dose Admin Acetaminophen 325 mg 11/18/18 10:49 11/23/18 17:34 Tylenol - PO 325 mg Q6HPO PRN Administration PAIN LEVEL 4 - 6 Acyclovir 400 mg 11/22/18 10:07 11/23/18 09:33 Zovirax - PO 11/26/18 23:59 400 mg DAILY ADRIAN Administration Docusate Sodium 100 mg 11/19/18 21:46 Colace - PO BID PRN CONSTIPATION Furosemide 40 mg 11/21/18 11:15 11/23/18 09:32 Lasix - PO 40 mg DAILY ADRIAN Administration Heparin Sodium (Porcine) 5,000 unit 11/17/18 06:00 11/23/18 13:29 Heparin - SQ Not Given TID ADRIAN Ceftriaxone Sodium 2 gm/ 100 mls @ 200 mls/hr 11/22/18 10:00 11/23/18 09:31 Dextrose IVPB 200 mls/hr DAILY ADRIAN Administration Protocol Lactulose 20 gm 11/21/18 14:00 11/23/18 13:29 Cephulac (Oral Use) PO 20 gm TID ADRIAN Administration Magnesium Oxide 400 mg 11/22/18 10:00 11/23/18 09:33 Mag-Ox - PO 400 mg BID ADRIAN Administration Potassium Chloride 40 meq 11/17/18 13:45 11/23/18 09:32 K-Dur - PO 40 meq DAILY ADRIAN Administration Simethicone 80 mg 11/19/18 21:45 11/20/18 09:33 Mylicon - PO 80 mg Q4H PRN Administration GAS Spironolactone 100 mg 11/17/18 13:30 11/23/18 09:33 Aldactone - PO 100 mg DAILY ADRAIN Administration Tramadol HCl 50 mg 11/22/18 13:11 Ultram - PO Q6H PRN PAIN LEVEL 7 - 10 ASSESSMENT AND PLAN: 48 year old female with Liver Cirrhosis secondary to Chronic Hepatitis C and Alcohol abuse, presented with Abdominal distension and peripheral edema, admitted 11/16. 1. Ascites and Peripheral edema secondary to Portal Hypertension and hypoalbuminemia sec to Liver Cirrhosis due to HepC/Alcohol abuse s/p Paracentesis with 5.5L drained, culture negative. s/p IV Lasix diuresis for 01/24 with switch to po Venous Duplex LEs neg for DVT. Continue oral Spironolactone and Lasix. Lactulose 20mg TID to ensure 3-4 soft BMs daily. GI following. Last drink 6 months ago. 2. Elevated Tumor markers CA 19/9 - 54 and CA 125 - 241) - for CT A/P to exclude solid tumors. 3. Cellulitis RLE, likely abscess clinically - US shows possible abscess. No significant improvement with IV Ceftriaxone. ID following. Surgery consulted for possible intervention. Afebrile, Hemodynamically Stable. 4. Chronic Macrocytic Anemia/Thrombocytopenia (H/H 8.9/26.4, MCV 107, Plts 87), secondary to Liver Cirrhosis - no evidence of bleeding. INR 1.27 5. Hypomagnesemia - will replete. 6. 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 DVT Px - Heparin SQ
[2018-11-23] MEDS: traMADol HCL 50 MG TABLET PO PRN (21:18)
[2018-11-24] MEDS: traMADol HCL 50 MG TABLET PO PRN ×2 (02:53→10:48)
[2018-11-24] MEDS: LACTULOSE 20 GM/30 ML UDC (FOR ORAL USE ONLY) PO SCH ×3 (05:36→22:38)
[2018-11-24] MEDS ORDERED: LIDOCAINE HCL/PF 2% SDV 5ML VIAL SQ ONE (07:35)
[2018-11-24 08:23] LABS: HEMATOCRIT 27.3 % (32.4-45.2); HEMOGLOBIN 9.3 GM/dL (10.7-15.3); MCH 36.5 pg (25.7-33.7); MCHC 33.9 g/dl (32.0-36.0); MEAN CELL VOLUME 107.6 fl (80-96); MEAN PLT VOLUME 7.2 fl (7.5-11.1); PLATELET COUNT 87 K/MM3 (134-434); RBC 2.54 M/mm3 (3.60-5.2); RDW 13.8 % (11.6-15.6); WHITE BLOOD COUNT 5.3 K/mm3 (4.0-10.0)
[2018-11-24 08:55] LABS: ALBUMIN 1.6 g/dl (3.4-5.0); ALK PHOS 141 U/L (45-117); ANION GAP 8 MMOL/L (8-16); BILIRUBIN,TOTAL 1.5 mg/dL (0.2-1); BLOOD UREA NITROGEN 11 mg/dL (7-18); CALCIUM 7.6 mg/dL (8.5-10.1); CHLORIDE 100 mmol/L (98-107); CO2 25 mmol/L (21-32); CREATININE 0.5 mg/dL (0.55-1.3); GLUCOSE,RANDOM 83 mg/dL (74-106); POTASSIUM 4.1 mmol/L (3.5-5.1); SGOT/AST 53 U/L (15-37); SGPT/ALT 22 U/L (13-61); SODIUM 133 mmol/L (136-145)
[2018-11-24] MEDS ORDERED: DEXTROSE 5%-WATER 100 ML IVPB ONE (10:22)
[2018-11-24] MEDS: SPIRONOLACTONE 25 MG TABLET (FP) PO SCH (10:40)
[2018-11-24] MEDS: POTASSIUM CHLORIDE TABS 20 MEQ TABLET.ER (FP) PO SCH (10:41)
[2018-11-24] MEDS: MAGNESIUM OXIDE 400 MG TABLET (FP) PO SCH ×2 (10:42→22:39)
[2018-11-24] MEDS: FUROSEMIDE 40 MG TABLET (FP) PO SCH (10:42)
[2018-11-24] MEDS: CEFTRIAXONE 2 GM in DEXTROSE 5%-WATER 100 ML IVPB SCH (10:43)
[2018-11-24] MEDS ORDERED: PT OWN MED DRAWER 7, Y5N ONE (10:46)
[2018-11-24] MEDS: SIMETHICONE 80 MG TAB.CHEW (FP) PO PRN (10:47)
[2018-11-24] MEDS: ACYCLOVIR 200 MG CAPSULE PO SCH (10:48)
--- NOTE | 2018-11-24 12:50 | PN ---
Physical Exam: SUBJECTIVE: Patient seen and examined at bedside this morning. Patient endorses no new complaints. She still complaints of right lower extremity pain. Denies fevers, chills, shortness of breath, chest pain, palpitations, abdominal pain, nausea, vomiting. OBJECTIVE: Vital Signs Period Temp Pulse Resp BP Sys/Mittal Pulse Ox Last 24 Hr 97.8 F-98.1 F 80-83 20-20 117-125/65-75 97 GENERAL: Awake, alert, and fully oriented, in no acute distress. HEAD: Normal with no signs of trauma. EYES: Pupils equal, round and reactive to light, extraocular movements intact, sclera anicteric. EARS, NOSE, THROAT: Oropharynx clear without exudates. Moist mucous membranes. NECK: Supple without lymphadenopathy. LUNGS: Breath sounds equal, clear to auscultation bilaterally. No wheezes, and no crackles. No accessory muscle use. HEART: Regular rate and rhythm, normal S1 and S2 without murmur, rub or gallop. ABDOMEN: Distended. Diffusely tender to palpation X4 quadrants. Tympanic to percussion X 4 quadrants. Hypoactive bowel sounds X4 quadrants. No guarding, no rebound tenderness. Two vertical scars noted from prior surgeries. Healed, clean dry. MUSCULOSKELETAL: Patient has improving motion of right lower extremity, limited due to pain and swelling. Patient freely moves B/L upper extremities and left lower extremity. UPPER EXTREMITIES: 2+ radial pulses b/l, warm, well-perfused. LOWER EXTREMITIES: 1+ dorsalis pedis pulses b/l. Right lower extremity erythema significantly improving with 8cm X 8cm area of tender induration. Tender to palpation. Pain with passive range of motion testing. Trace pitting edema B/L lower extremities. NEUROLOGICAL: Cranial nerves II-XII intact. Normal speech. PSYCHIATRIC: Cooperative. Appropriate mood and affect. Laboratory Results - last 24 hr 11/24/18 11/24/18 07:00 07:00 WBC 5.3 RBC 2.54 L Hgb 9.3 L Hct 27.3 L MCV 107.6 H MCH 36.5 H MCHC 33.9 RDW 13.8 Plt Count 87 L MPV 7.2 L Sodium 133 L Potassium 4.1 Chloride 100 Carbon Dioxide 25 Anion Gap 8 BUN 11 Creatinine 0.5 L Creat Clearance w eGFR > 60 Random Glucose 83 Calcium 7.6 L Total Bilirubin 1.5 H AST 53 H ALT 22 Alkaline Phosphatase 141 H Total Protein 6.0 L Albumin 1.6 L Active Medications Generic Name Dose Route Start Last Admin Trade Name Emeryq PRN Reason Stop Dose Admin Acetaminophen 325 mg 11/18/18 10:49 11/23/18 17:34 Tylenol - PO 325 mg Q6HPO PRN Administration PAIN LEVEL 4 - 6 Acyclovir 400 mg 11/22/18 10:07 11/24/18 10:48 Zovirax - PO 11/26/18 23:59 400 mg DAILY ADRIAN Administration Docusate Sodium 100 mg 11/19/18 21:46 Colace - PO BID PRN CONSTIPATION Furosemide 40 mg 11/21/18 11:15 11/24/18 10:42 Lasix - PO 40 mg DAILY ADRIAN Administration Ceftriaxone Sodium 2 gm/ 100 mls @ 200 mls/hr 11/22/18 10:00 11/24/18 10:43 Dextrose IVPB 200 mls/hr DAILY ADRIAN Administration Protocol Lactulose 20 gm 11/21/18 14:00 11/24/18 05:36 Cephulac (Oral Use) PO 20 gm TID ADRIAN Administration Magnesium Oxide 400 mg 11/22/18 10:00 11/24/18 10:42 Mag-Ox - PO 400 mg BID ADRIAN Administration Potassium Chloride 40 meq 11/17/18 13:45 11/24/18 10:41 K-Dur - PO 40 meq DAILY ADRIAN Administration Simethicone 80 mg 11/19/18 21:45 11/24/18 10:47 Mylicon - PO 80 mg Q4H PRN Administration GAS Spironolactone 100 mg 11/17/18 13:30 11/24/18 10:40 Aldactone - PO 100 mg DAILY ADRIAN Administration Tramadol HCl 50 mg 11/22/18 13:11 11/24/18 10:48 Ultram - PO 50 mg Q6H PRN Administration PAIN LEVEL 7 - 10 ASSESSMENT/PLAN: Patient is a 48 year old female with history of cirrhosis secondary to alcohol abuse, hepatitis C, presents with complaint of diffuse abdominal and lower extremity swelling. Anasarca -Likely secondary to cirrhosis, noted on CT abdomen and pelvis from 08/2018. -Abdominal pain is likely secondary to the anasarca. -S/P paracentesis (11/09) with 5500cc serous fluid removed. F/U serology, and microbiology. -Spironolactone 100mg PO daily -Lactulose 20grams PO TID -Lasix 40mg PO daily -Pain control Tramadol switched to Oxycodone 5mg PO Q8H PRN for pain 6 -10 -GI consult (Dr. Romeo) appreciated. Considering history of elevated CA 19-9 and CA [address] abdomen pelvis to rule out intra abdominal pathology that may be contributing etiology to ascites. Consider PROGRAM STRATEGIST consult, pending results. Lower extremity swelling -CT lower extremity shows ascites and extensive subucateous edema without discrete fluid collection suggestive of abscess/ hematoma. -Duplex US B/L lower extremities negative for DVT -Rocephin 2grams IV daily for likely cellulitis (day 8) -US soft tissue shows fluid collection, possibly suggestive of abscess formation. -Surgical consult (Dr. Monique) appreciated. Unlikely to be developing abscess, more likely hematoma. No surgical intervention at this time. History of ETOH abuse -Patient states last drink was 6 months ago. Currently not in withdrawal. -Counselled patient regarding importance of alcohol abstinence. -Monitor closely for withdrawal Hyponatremia -Improving. Likely secondary to volume overload. -Monitor CMP closely. Transaminitis -Labs not significantly different from prior studies. Likely chronic. -Trend CMP Oral HSV -Acyclovir 400mg PO daily FEN -No IV fluids -Follow CMP -Sodium controlled diet Prophylaxis -Heparin 5000u subq TID Disposition -Continue care in medical-surgical floor Fall precautions Visit type - Emergency Visit Emergency Visit: Yes ED Registration Date: 11/16/18 Care time: The patient presented to the Emergency Department on the above date and was hospitalized for further evaluation of their emergent condition. - New Patient This patient is new to me today: No - Critical Care Critical Care patient: No - Discharge Referral Referred to [facility] Med P.C.: No
[2018-11-24] MEDS ORDERED: oxyCODONE HCL 5 MG TABLET PO PRN (15:40)
--- NOTE | 2018-11-24 16:25 | PN ---
Teaching Attending Note Name of Resident: Horace Maurice ATTENDING PHYSICIAN STATEMENT I saw and evaluated the patient. I reviewed the resident's note and discussed the case with the resident. I agree with the resident's findings and plan as documented. SUBJECTIVE: Complains of RLE discomfort, lightheadedness on standing. No abdominal pain/fever/chills. No limb numbness/weakness OBJECTIVE: Afebrile, Hemodynamically Stable. Last Vital Signs Temp Pulse Resp BP Pulse Ox 97.8 F 76 18 115/63 97 11/24/18 13:41 11/24/18 13:41 11/24/18 13:41 11/24/18 13:41 11/24/18 09:00 HEENT- Atraumatic, Normocephalic. Heart - S1, S2, RRR Lungs - good air entry bilaterally - no crackles/wheeze. Abdomen -soft, mild generalized tenderness. No guarding/rebound. Bowel Sounds normal. Extremities - edema+, RLE (thigh, inner aspect) erythematous, swollen, tender+. No purulent discharge. Neuro - AAO x 3. No asterixis. Tone/Power normal all 4 extremities. Laboratory Results - last 24 hr 11/24/18 11/24/18 07:00 07:00 WBC 5.3 RBC 2.54 L Hgb 9.3 L Hct 27.3 L MCV 107.6 H MCH 36.5 H MCHC 33.9 RDW 13.8 Plt Count 87 L MPV 7.2 L Sodium 133 L Potassium 4.1 Chloride 100 Carbon Dioxide 25 Anion Gap 8 BUN 11 Creatinine 0.5 L Creat Clearance w eGFR > 60 Random Glucose 83 Calcium 7.6 L Total Bilirubin 1.5 H AST 53 H ALT 22 Alkaline Phosphatase 141 H Total Protein 6.0 L Albumin 1.6 L Current Medications Generic Name Dose Route Start Last Admin Trade Name Freq PRN Reason Stop Dose Admin Acetaminophen 325 mg 11/18/18 10:49 11/23/18 17:34 Tylenol - PO 325 mg Q6HPO PRN Administration PAIN LEVEL 4 - 6 Acyclovir 400 mg 11/22/18 10:07 11/24/18 10:48 Zovirax - PO 11/26/18 23:59 400 mg DAILY [facility] Administration Docusate Sodium 100 mg 11/19/18 21:46 Colace - PO BID PRN CONSTIPATION Furosemide 40 mg 11/21/18 11:15 11/24/18 10:42 Lasix - PO 40 mg DAILY [facility] Administration Ceftriaxone Sodium 2 gm/ 100 mls @ 200 mls/hr 11/22/18 10:00 11/24/18 10:43 Dextrose IVPB 200 mls/hr DAILY [facility] Administration Protocol Lactulose 20 gm 11/21/18 14:00 11/24/18 05:36 Cephulac (Oral Use) PO 20 gm TID [facility] Administration Magnesium Oxide 400 mg 11/22/18 10:00 11/24/18 10:42 Mag-Ox - PO 400 mg BID [facility] Administration Oxycodone HCl 5 mg 11/24/18 15:40 Roxicodone - PO Q6H PRN PAIN LEVEL 6-10 Potassium Chloride 40 meq 11/17/18 13:45 11/24/18 10:41 K-Dur - PO 40 meq DAILY [facility] Administration Simethicone 80 mg 11/19/18 21:45 11/24/18 10:47 Mylicon - PO 80 mg Q4H PRN Administration GAS Spironolactone 100 mg 11/17/18 13:30 11/24/18 10:40 Aldactone - PO 100 mg DAILY [facility] Administration ASSESSMENT AND PLAN: 48 year old female with Liver Cirrhosis secondary to Chronic Hepatitis C and Alcohol abuse, presented with Abdominal distension and peripheral edema, admitted 11/16. 1. Ascites and Peripheral edema secondary to Portal Hypertension and hypoalbuminemia sec to Liver Cirrhosis due to HepC/Alcohol abuse s/p Paracentesis with 5.5L drained, culture negative. s/p IV Lasix diuresis for 01/24 then switched to po Venous Duplex LEs neg for DVT. Continue oral Spironolactone and Lasix. Lactulose 20mg TID to ensure 3-4 soft BMs daily. GI following. Last drink 6 months ago. Tramadol changed to Oxy for better pain control. 2. Elevated Tumor markers CA 19/9 - 54 and CA 125 - 241) - awaiting CT A/P to exclude solid tumors. 3. Cellulitis RLE, possible abscess clinically - US shows possible abscess. Some mild improvement with IV Ceftriaxone. ID following. Surgery consulted - felt to be hematoma with no intervention indicated. Afebrile, Hemodynamically Stable. 4. Chronic Macrocytic Anemia/Thrombocytopenia (H/H 9.3/, MCV 107, Plts 87), secondary to Liver Cirrhosis - no evidence of bleeding. INR 1.27 5. Hypomagnesemia - repleted. 6. 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 7. Lightheadedness on standing - no neuro deficits - Orthostatic vitals requested and PT eval. DVT Px - Heparin SQ
--- NOTE | 2018-11-24 19:34 | PN ---
Progress Note, Physician History of Present Illness: Pt is alert, afebrile. Events noted. Evaluated for possible developing abscess in Rt thigh. Surgical evaluation reviewed. Pt still with significant pain in Rt thigh site. No current IV access. - Current Medication List Current Medications: Active Medications Acetaminophen (Tylenol -) 325 mg PO Q6HPO PRN PRN Reason: PAIN LEVEL 4 - 6 Last Admin: 11/23/18 17:34 Dose: 325 mg Acyclovir (Zovirax -) 400 mg PO DAILY [facility] Stop: 11/26/18 23:59 Last Admin: 11/24/18 10:48 Dose: 400 mg Docusate Sodium (Colace -) 100 mg PO BID PRN PRN Reason: CONSTIPATION Furosemide (Lasix -) 40 mg PO DAILY [facility] Last Admin: 11/24/18 10:42 Dose: 40 mg Ceftriaxone Sodium 2 gm/ (Dextrose) 100 mls @ 200 mls/hr IVPB DAILY [facility]; Protocol Last Admin: 11/24/18 10:43 Dose: 200 mls/hr Lactulose (Cephulac (Oral Use)) 20 gm PO TID [facility] Last Admin: 11/24/18 19:16 Dose: Not Given Magnesium Oxide (Mag-Ox -) 400 mg PO BID [facility] Last Admin: 11/24/18 10:42 Dose: 400 mg Oxycodone HCl (Roxicodone -) 5 mg PO Q8H PRN PRN Reason: PAIN LEVEL 7-10 Potassium Chloride (K-Dur -) 40 meq PO DAILY [facility] Last Admin: 11/24/18 10:41 Dose: 40 meq Simethicone (Mylicon -) 80 mg PO Q4H PRN PRN Reason: GAS Last Admin: 11/24/18 10:47 Dose: 80 mg Spironolactone (Aldactone -) 100 mg PO DAILY [facility] Last Admin: 11/24/18 10:40 Dose: 100 mg - Objective Vital Signs: Vital Signs Temperature 98.1 F 11/24/18 18:00 Pulse Rate 74 11/24/18 18:00 Respiratory Rate 18 11/24/18 18:00 Blood Pressure 112/59 L 11/24/18 18:00 O2 Sat by Pulse Oximetry (%) 97 11/24/18 09:00 Constitutional: Yes: No Distress Cardiovascular: Yes: Regular Rate and Rhythm Respiratory: Yes: Regular Gastrointestinal: Yes: Normal Bowel Sounds, Soft Extremities: Yes: Other (Rt thigh erythema/tenderness with induration) Neurological: Yes: Alert Labs: CBC, BMP 11/24/18 07:00 11/24/18 07:00 INR, PTT INR 1.27 (0.83-1.09) H 11/22/18 05:00 - ....Imaging Ultrasound: Report Reviewed Problem List - Problems (1) Hepatic cirrhosis due to chronic hepatitis C infection Code(s): B18.2 - CHRONIC VIRAL HEPATITIS C; K74.60 - UNSPECIFIED CIRRHOSIS OF LIVER (2) Pain in right thigh Code(s): M79.651 - PAIN IN RIGHT THIGH Assessment/Plan Rt thigh abscess vs. hematoma Cirrhosis Chronic Hepatitis C -- still with significant tenderness at site -- repeat US done, with fluid collection, can not entirely r/o abscess, consider drainage -- will add Vancomycin IV if able to obtain IV access, otherwise suggest clindamycin 300 mg po Q6h for now
[2018-11-24] MEDS ORDERED: VANCOMYCIN 1,000 MG in DEXTROSE 5%-WATER - 250 ML IVPB SCH (19:45)
[2018-11-24] MEDS: VANCOMYCIN 1 GRAM (PRE-DOCKED) 1,000 MG/250 ML BAG IVPB SCH (22:39)
[2018-11-24] MEDS: oxyCODONE HCL 5 MG TABLET PO PRN (23:03)
[2018-11-25] MEDS ORDERED: diphenhydrAMINE HCL 25 MG CAPSULE (FP) PO ONE ×2 (00:55→19:25)
[2018-11-25] MEDS: LACTULOSE 20 GM/30 ML UDC (FOR ORAL USE ONLY) PO SCH ×3 (06:06→21:19)
[2018-11-25 08:33] LABS: HEMATOCRIT 28.5 % (32.4-45.2); HEMOGLOBIN 9.7 GM/dL (10.7-15.3); MCH 36.8 pg (25.7-33.7); RBC 2.64 M/mm3 (3.60-5.2); WHITE BLOOD COUNT 5.5 K/mm3 (4.0-10.0)
[2018-11-25 08:34] LABS: MCHC 34.1 g/dl (32.0-36.0); MEAN PLT VOLUME 6.8 fl (7.5-11.1); PLATELET COUNT 96 K/MM3 (134-434); RDW 13.9 % (11.6-15.6)
[2018-11-25] MEDS ORDERED: PT OWN MED DRAWER 7, Y5N ONE (09:34)
[2018-11-25] MEDS ORDERED: DEXTROSE 5%-WATER 100 ML IVPB ONE (09:35)
[2018-11-25] MEDS: VANCOMYCIN 1 GRAM (PRE-DOCKED) 1,000 MG/250 ML BAG IVPB SCH ×2 (09:53→21:20)
[2018-11-25] MEDS: FUROSEMIDE 40 MG TABLET (FP) PO SCH (09:54)
[2018-11-25] MEDS: SPIRONOLACTONE 25 MG TABLET (FP) PO SCH (09:54)
[2018-11-25] MEDS: POTASSIUM CHLORIDE TABS 20 MEQ TABLET.ER (FP) PO SCH (09:54)
[2018-11-25] MEDS: MAGNESIUM OXIDE 400 MG TABLET (FP) PO SCH ×2 (09:55→21:20)
[2018-11-25] MEDS: CEFTRIAXONE 2 GM in DEXTROSE 5%-WATER 100 ML IVPB SCH (09:55)
[2018-11-25] MEDS: ACYCLOVIR 200 MG CAPSULE PO SCH (09:56)
[2018-11-25 12:33] LABS: ALBUMIN 1.5 g/dl (3.4-5.0); ALK PHOS 134 U/L (45-117); ANION GAP 5 MMOL/L (8-16); BILIRUBIN,TOTAL 1.2 mg/dL (0.2-1); BLOOD UREA NITROGEN 12 mg/dL (7-18); CALCIUM 7.6 mg/dL (8.5-10.1); CHLORIDE 98 mmol/L (98-107); CO2 27 mmol/L (21-32); CREATININE 0.7 mg/dL (0.55-1.3); GLUCOSE,RANDOM 94 mg/dL (74-106); MAGNESIUM 1.6 mg/dL (1.8-2.4); PHOSPHOROUS 3.8 mg/dL (2.5-4.9); POTASSIUM 4.7 mmol/L (3.5-5.1); SGOT/AST 58 U/L (15-37); SGPT/ALT 25 U/L (13-61); SODIUM 130 mmol/L (136-145); TOT PROT 6.2 g/dl (6.4-8.2)
[2018-11-25] MEDS: oxyCODONE HCL 5 MG TABLET PO PRN (15:27)
--- NOTE | 2018-11-25 16:43 | PN ---
Progress Note (short form) - Note Progress Note: SUBJECTIVE: Complains of ongoing RLE discomfort. No abdominal pain/fever/ chills. No limb numbness/weakness OBJECTIVE: Afebrile, Hemodynamically Stable. Last Vital Signs Temp Pulse Resp BP Pulse Ox 98.3 F 80 16 120/73 97 11/25/18 10:00 11/25/18 10:00 11/25/18 10:00 11/25/18 10:00 11/25/18 09:00 HEENT- Atraumatic, Normocephalic. Heart - S1, S2, RRR Lungs - no crackles/wheeze. Abdomen -soft, mild generalized tenderness. No guarding/rebound. Bowel Sounds normal. Extremities - edema+, some improvement in RLE (thigh, inner aspect) erythema, swolling, tenderness. No purulent discharge. Neuro - AAO x 3. No asterixis. Tone/Power normal all 4 extremities. Laboratory Results - last 24 hr 11/25/18 11/25/18 05:25 05:25 WBC 5.5 RBC 2.64 L Hgb 9.7 L Hct 28.5 L MCV 108.0 H MCH 36.8 H MCHC 34.1 RDW 13.9 Plt Count 96 L MPV 6.8 L Sodium 130 L Potassium 4.7 Chloride 98 Carbon Dioxide 27 Anion Gap 5 L BUN 12 Creatinine 0.7 Creat Clearance w eGFR > 60 Random Glucose 94 Calcium 7.6 L Phosphorus 3.8 Magnesium 1.6 L Total Bilirubin 1.2 H AST 58 H ALT 25 Alkaline Phosphatase 134 H Total Protein 6.2 L Albumin 1.5 L Current Medications Generic Name Dose Route Start Last Admin Trade Name Freq PRN Reason Stop Dose Admin Acetaminophen 325 mg 11/18/18 10:49 11/23/18 17:34 Tylenol - PO 325 mg Q6HPO PRN Administration PAIN LEVEL 4 - 6 Acyclovir 400 mg 11/22/18 10:07 11/25/18 09:56 Zovirax - PO 11/26/18 23:59 400 mg DAILY [facility] Administration Docusate Sodium 100 mg 11/19/18 21:46 Colace - PO BID PRN CONSTIPATION Furosemide 40 mg 11/21/18 11:15 11/25/18 09:54 Lasix - PO 40 mg DAILY [facility] Administration Ceftriaxone Sodium 2 gm/ 100 mls @ 200 mls/hr 11/22/18 10:00 11/25/18 09:55 Dextrose IVPB 200 mls/hr DAILY [facility] Administration Protocol Lactulose 20 gm 11/21/18 14:00 11/25/18 13:39 Cephulac (Oral Use) PO 20 gm TID [facility] Administration Magnesium Oxide 400 mg 11/22/18 10:00 11/25/18 09:55 Mag-Ox - PO 400 mg BID [facility] Administration Oxycodone HCl 5 mg 11/24/18 16:45 11/25/18 15:27 Roxicodone - PO 5 mg Q8H PRN Administration PAIN LEVEL 7-10 Potassium Chloride 40 meq 11/17/18 13:45 11/25/18 09:54 K-Dur - PO 40 meq DAILY [facility] Administration Simethicone 80 mg 11/19/18 21:45 11/24/18 10:47 Mylicon - PO 80 mg Q4H PRN Administration GAS Spironolactone 100 mg 11/17/18 13:30 11/25/18 09:54 Aldactone - PO 100 mg DAILY [facility] Administration Vancomycin HCl 1,000 mg 11/24/18 20:00 11/25/18 09:53 Vancomycin (Pre-Docked) IVPB 1,000 mg BID@0800,2000 [facility] Administration ASSESSMENT AND PLAN: 48 year old female with Liver Cirrhosis secondary to Chronic Hepatitis C and Alcohol abuse, presented with Abdominal distension and peripheral edema, admitted 11/16. 1. Ascites and Peripheral edema secondary to Portal Hypertension and hypoalbuminemia sec to Liver Cirrhosis due to HepC/Alcohol abuse s/p Paracentesis with 5.5L drained, culture negative. s/p IV Lasix diuresis for 01/24 then switched to po Venous Duplex LEs neg for DVT. Continue oral Spironolactone and Lasix. Lactulose 20mg TID to ensure 3-4 soft BMs daily. GI following. Last drink 6 months ago. Tramadol changed to Oxy for better pain control with good effect. 2. Elevated Tumor markers CA 19/9 - 54 and CA 125 - 241) - CT A/P: Liver Cirrhosis, portal venous hypertension, no solid masses. Can consider Pelvic US as an out-patient. 3. Cellulitis RLE, possible abscess clinically - US shows possible abscess. Only mild improvement with IV Ceftriaxone. ID added Vanco 02/22/18 Surgery consulted - felt to be hematoma with no intervention indicated. Afebrile, Hemodynamically Stable. 4. Chronic Macrocytic Anemia/Thrombocytopenia (H/H 9.3, MCV 107, Plts 87), secondary to Liver Cirrhosis - no evidence of bleeding. INR 1.27 5. Hypomagnesemia - repleted. 6. 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 7. Lightheadedness on standing - no neuro deficits - Orthostatic vitals negative. PT eval requested. DVT Px - Heparin SQ held due to Thrombocytopenia. Visit type - Emergency Visit Emergency Visit: Yes ED Registration Date: 11/16/18 Care time: The patient presented to the Emergency Department on the above date and was hospitalized for further evaluation of their emergent condition. - New Patient This patient is new to me today: No - Critical Care Critical Care patient: No - Discharge Referral Referred to [facility] Med P.C.: No
[2018-11-26] MEDS: ACETAMINOPHEN 325 MG TABLET (FP) PO PRN ×2 (05:09→23:04)
[2018-11-26] MEDS: oxyCODONE HCL 5 MG TABLET PO PRN ×2 (05:09→21:01)
[2018-11-26] MEDS: LACTULOSE 20 GM/30 ML UDC (FOR ORAL USE ONLY) PO SCH ×3 (05:09→22:17)
[2018-11-26] MEDS: VANCOMYCIN 1 GRAM (PRE-DOCKED) 1,000 MG/250 ML BAG IVPB SCH ×2 (08:21→21:01)
[2018-11-26] MEDS ORDERED: DEXTROSE 5%-WATER 100 ML IVPB ONE (09:34)
[2018-11-26] MEDS: ACYCLOVIR 200 MG CAPSULE PO SCH (09:57)
[2018-11-26] MEDS: SPIRONOLACTONE 25 MG TABLET (FP) PO SCH (09:57)
[2018-11-26] MEDS: POTASSIUM CHLORIDE TABS 20 MEQ TABLET.ER (FP) PO SCH (09:57)
[2018-11-26] MEDS: FUROSEMIDE 40 MG TABLET (FP) PO SCH (09:57)
[2018-11-26] MEDS: MAGNESIUM OXIDE 400 MG TABLET (FP) PO SCH ×2 (09:57→21:01)
[2018-11-26] MEDS: CEFTRIAXONE 2 GM in DEXTROSE 5%-WATER 100 ML IVPB SCH (11:11)
--- NOTE | 2018-11-26 11:35 | PN ---
Progress Note, Physician Chief Complaint: right thigh hematoma History of Present Illness: 48 yo female PMH cirrhosis secondary to alcohol abuse, hepatitis C, presents with complaint of diffuse abdominal and lower extremity swelling. right thigh hematoma likely secondary to a fall injuring the right leg and knee. She has thrombocytopenia, scattered echymosis on extremties, lab coagulopathy and no leukocytosis. She has had no worseing of the appearence of the lesion, she has been afebrile. We were asked to reassess given suspicion for the possibility for abscess. - Current Medication List Current Medications: Active Medications Acetaminophen (Tylenol -) 325 mg PO Q6HPO PRN PRN Reason: PAIN LEVEL 4 - 6 Last Admin: 11/26/18 05:09 Dose: 325 mg Acyclovir (Zovirax -) 400 mg PO DAILY [facility] Stop: 11/26/18 23:59 Last Admin: 11/26/18 09:57 Dose: 400 mg Docusate Sodium (Colace -) 100 mg PO BID PRN PRN Reason: CONSTIPATION Furosemide (Lasix -) 40 mg PO DAILY [facility] Last Admin: 11/26/18 09:57 Dose: 40 mg Ceftriaxone Sodium 2 gm/ (Dextrose) 100 mls @ 200 mls/hr IVPB DAILY [facility]; Protocol Last Admin: 11/26/18 11:11 Dose: 200 mls/hr Lactulose (Cephulac (Oral Use)) 20 gm PO TID [facility] Last Admin: 11/26/18 05:09 Dose: 20 gm Magnesium Oxide (Mag-Ox -) 400 mg PO BID [facility] Last Admin: 11/26/18 09:57 Dose: 400 mg Oxycodone HCl (Roxicodone -) 5 mg PO Q8H PRN PRN Reason: PAIN LEVEL 7-10 Last Admin: 11/26/18 05:09 Dose: 5 mg Potassium Chloride (K-Dur -) 40 meq PO DAILY [facility] Last Admin: 11/26/18 09:57 Dose: 40 meq Simethicone (Mylicon -) 80 mg PO Q4H PRN PRN Reason: GAS Last Admin: 11/24/18 10:47 Dose: 80 mg Spironolactone (Aldactone -) 100 mg PO DAILY [facility] Last Admin: 11/26/18 09:57 Dose: 100 mg Vancomycin HCl (Vancomycin (Pre-Docked)) 1,000 mg IVPB BID@0800,2000 [facility] Last Admin: 11/26/18 08:21 Dose: 1,000 mg - Objective Vital Signs: Vital Signs Temperature 97.9 F 11/26/18 10:00 Pulse Rate 70 11/26/18 10:00 Respiratory Rate 20 11/26/18 10:00 Blood Pressure 124/67 11/26/18 10:00 O2 Sat by Pulse Oximetry (%) 96 11/26/18 09:00 Constitutional: Yes: Well Nourished, No Distress, Calm Eyes: Yes: Conjunctiva Clear, EOM Intact HENT: Yes: Atraumatic, Normocephalic Neck: Yes: Supple, Trachea Midline Cardiovascular: Yes: Regular Rate and Rhythm, S1, S2 Respiratory: Yes: Regular, CTA Bilaterally Gastrointestinal: Yes: Normal Bowel Sounds, Soft. No: Tenderness ...Rectal Exam: Yes: Deferred Genitourinary: No: CVA Tenderness - Left, CVA Tenderness - Right Breast(s): No: Discharge from Nipple, Skin Changes Musculoskeletal: Yes: Joint Stiffness, Joint Swelling. No: Muscle Pain Extremities: No: Calf Tenderness, Cool, Cyanosis Edema: No Peripheral Pulses WNL: Yes Peripheral Pulses: Left Radial: 0, Right Radial: 2+, Left Doralis Pedis: 2+, Right Dorsalis Pedis: 2+, Left Femoral: 2+, Right Femoral: 2+ Integumentary: No: Jaundice, Rash, Skin Tear Neurological: Yes: Alert, Oriented Psychiatric: Yes: Alert, Oriented Labs: CBC, BMP 11/25/18 05:25 11/25/18 05:25 INR, PTT INR 1.27 (0.83-1.09) H 11/22/18 05:00 Problem List - Problems (1) Traumatic hematoma of thigh Assessment/Plan: 48 yo female with MMP including cirrhosis right thigh medial hematoma, low index of suspicion for abscess, given histiy of trauma during fall. no leukocutosis, thrombocytopenis and coagulopathic. no acute surgical intervention. trend labs correct coagulopathy and platelet count if possible warm compresses for comfort right leg elevation will follow peripheral can re-image the leg if index of suspicion increases Code(s): S70.10XA - CONTUSION OF UNSPECIFIED THIGH, INITIAL ENCOUNTER Qualifiers: Encounter type: sequela Laterality: right Qualified Code(s): S70.11XS - Contusion of right thigh, sequela (2) Pain in right thigh Code(s): M79.651 - PAIN IN RIGHT THIGH (3) Anasarca Code(s): R60.1 - GENERALIZED EDEMA (4) Hepatic cirrhosis due to chronic hepatitis C infection Code(s): B18.2 - CHRONIC VIRAL HEPATITIS C; K74.60 - UNSPECIFIED CIRRHOSIS OF LIVER (5) Hepatitis C Code(s): B19.20 - UNSPECIFIED VIRAL HEPATITIS C WITHOUT HEPATIC COMA Qualifiers: Viral hepatitis chronicity: chronic Hepatic coma status: without hepatic coma Qualified Code(s): B18.2 - Chronic viral hepatitis C (6) Coagulopathy Code(s): D68.9 - COAGULATION DEFECT, UNSPECIFIED
--- NOTE | 2018-11-26 11:47 | PN ---
Physical Exam: SUBJECTIVE: Patient seen and examined at bedside this morning. No acute overnight events. Patient does not endorse any new complaints today. She still complaints of right lower extremity pain. Denies fevers, chills, shortness of breath, chest pain, palpitations, abdominal pain, nausea, vomiting. Endorses four soft bowel movements within past 24 hours. OBJECTIVE: Vital Signs Period Temp Pulse Resp BP Sys/Mittal Pulse Ox Last 24 Hr 97.7 F-98.2 F 70-85 20-20 124-130/65-79 96-98 GENERAL: Awake, alert, and fully oriented, in no acute distress. HEAD: Normal with no signs of trauma. EYES: Pupils equal, round and reactive to light, extraocular movements intact, sclera anicteric. EARS, NOSE, THROAT: Oropharynx clear without exudates. Moist mucous membranes. NECK: Supple without lymphadenopathy. LUNGS: Breath sounds equal, clear to auscultation bilaterally. No wheezes, and no crackles. No accessory muscle use. HEART: Regular rate and rhythm, normal S1 and S2 without murmur, rub or gallop. ABDOMEN: Distended. Diffusely tender to palpation X4 quadrants. Tympanic to percussion X 4 quadrants. Hypoactive bowel sounds X4 quadrants. No guarding, no rebound tenderness. Two vertical scars noted from prior surgeries. Healed, clean dry. MUSCULOSKELETAL: Patient has improving motion of right lower extremity, limited due to pain and swelling. Patient freely moves B/L upper extremities and left lower extremity. UPPER EXTREMITIES: 2+ radial pulses b/l, warm, well-perfused. LOWER EXTREMITIES: 1+ dorsalis pedis pulses b/l. Right lower extremity erythema significantly improving however still remains indurated and tender to palpation. Trace pitting edema B/L lower extremities. NEUROLOGICAL: Cranial nerves II-XII intact. Normal speech. PSYCHIATRIC: Cooperative. Appropriate mood and affect. Laboratory Results - last 24 hr 11/25/18 05:25 Sodium 130 L Potassium 4.7 Chloride 98 Carbon Dioxide 27 Anion Gap 5 L BUN 12 Creatinine 0.7 Creat Clearance w eGFR > 60 Random Glucose 94 Calcium 7.6 L Phosphorus 3.8 Magnesium 1.6 L Total Bilirubin 1.2 H AST 58 H ALT 25 Alkaline Phosphatase 134 H Total Protein 6.2 L Albumin 1.5 L Active Medications Generic Name Dose Route Start Last Admin Trade Name Freq PRN Reason Stop Dose Admin Acetaminophen 325 mg 11/18/18 10:49 11/26/18 05:09 Tylenol - PO 325 mg Q6HPO PRN Administration PAIN LEVEL 4 - 6 Acyclovir 400 mg 11/22/18 10:07 11/26/18 09:57 Zovirax - PO 11/26/18 23:59 400 mg DAILY [facility] Administration Docusate Sodium 100 mg 11/19/18 21:46 Colace - PO BID PRN CONSTIPATION Furosemide 40 mg 11/21/18 11:15 11/26/18 09:57 Lasix - PO 40 mg DAILY [facility] Administration Ceftriaxone Sodium 2 gm/ 100 mls @ 200 mls/hr 11/22/18 10:00 11/26/18 11:11 Dextrose IVPB 200 mls/hr DAILY [facility] Administration Protocol Lactulose 20 gm 11/21/18 14:00 11/26/18 05:09 Cephulac (Oral Use) PO 20 gm TID [facility] Administration Magnesium Oxide 400 mg 11/22/18 10:00 11/26/18 09:57 Mag-Ox - PO 400 mg BID [facility] Administration Oxycodone HCl 5 mg 11/24/18 16:45 11/26/18 05:09 Roxicodone - PO 5 mg Q8H PRN Administration PAIN LEVEL 7-10 Potassium Chloride 40 meq 11/17/18 13:45 11/26/18 09:57 K-Dur - PO 40 meq DAILY [facility] Administration Simethicone 80 mg 11/19/18 21:45 11/24/18 10:47 Mylicon - PO 80 mg Q4H PRN Administration GAS Spironolactone 100 mg 11/17/18 13:30 11/26/18 09:57 Aldactone - PO 100 mg DAILY [facility] Administration Vancomycin HCl 1,000 mg 11/24/18 20:00 11/26/18 08:21 Vancomycin (Pre-Docked) IVPB 1,000 mg BID@0800,2000 [facility] Administration ASSESSMENT/PLAN: Patient is a 48 year old female with history of cirrhosis secondary to alcohol abuse, hepatitis C, presents with complaint of diffuse abdominal and lower extremity swelling. Anasarca -Likely secondary to cirrhosis, noted on CT abdomen and pelvis from 08/2018. -Abdominal pain is likely secondary to the anasarca. -S/P paracentesis (12/21) with 5500cc serous fluid removed. F/U serology, and microbiology. -Spironolactone 100mg PO daily -Lactulose 20grams PO TID -Lasix 40mg PO daily -Pain control Tramadol switched to Oxycodone 5mg PO Q8H PRN for pain 6 -10 -GI consult (Dr. Romeo) appreciated. Considering history of elevated CA 19-[address] abdomen pelvis ordered. -Hepatic cirrhosis, portal hypertension, extensive varices. Gastric antral thickening noted. Scattered diverticula withotu diverticulitis. Lower extremity swelling -CT lower extremity shows ascites and extensive subucateous edema without discrete fluid collection suggestive of abscess/ hematoma. -Duplex US B/L lower extremities negative for DVT -Rocephin 2grams IV daily for likely cellulitis (day 10) -Vancomycin 1 gram IV BID (day 2) -US soft tissue shows fluid collection, possibly suggestive of abscess formation. -Surgical consult (Dr. Monique) appreciated. Unlikely to be developing abscess, more likely hematoma. No surgical intervention at this time. -F/U repeat CT lower extremity History of ETOH abuse -Patient states last drink was 6 months ago. Currently not in withdrawal. -Counselled patient regarding importance of alcohol abstinence. -Monitor closely for withdrawal Hyponatremia -Improving. Likely secondary to volume overload. -Monitor CMP closely. Transaminitis -Labs not significantly different from prior studies. Likely chronic. -Trend CMP Oral HSV -Completed 5 day course Acyclovir 400mg. FEN -No IV fluids -Follow CMP -Sodium controlled diet Prophylaxis -Heparin 5000u subq TID Disposition -Continue care in medical-surgical floor Fall precautions Visit type - Emergency Visit Emergency Visit: Yes ED Registration Date: 11/16/18 Care time: The patient presented to the Emergency Department on the above date and was hospitalized for further evaluation of their emergent condition. - New Patient This patient is new to me today: No - Critical Care Critical Care patient: No - Discharge Referral Referred to [facility] Med P.C.: No
[2018-11-26] MEDS ORDERED: LIDOCAINE HCL 1%, 10 MG/ML (20ML VIAL) ONE (11:57)
--- NOTE | 2018-11-26 12:33 | PN ---
Teaching Attending Note Name of Resident: Horace Maurice ATTENDING PHYSICIAN STATEMENT I saw and evaluated the patient. I reviewed the resident's note and discussed the case with the resident. I agree with the resident's findings and plan as documented. SUBJECTIVE: Ongoing RLE discomfort in region of R inner thigh swelling. No abdominal pain/fever/chills. No limb numbness/weakness OBJECTIVE: Afebrile, Hemodynamically Stable. Last Vital Signs Temp Pulse Resp BP Pulse Ox 97.9 F 70 20 124/67 96 11/26/18 10:00 11/26/18 10:00 11/26/18 10:00 11/26/18 10:00 11/26/18 09:00 HEENT- Atraumatic, Normocephalic. Healing cold sores upper lip. Heart - S1, S2, RRR Lungs - no crackles/wheeze. Abdomen -soft, mild generalized tenderness. No guarding/rebound. Bowel Sounds normal. Extremities - edema+, RLE (thigh, inner aspect) erythema, swelling, tenderness. No purulent discharge. Neuro - AAO x 3. No asterixis. Tone/Power normal all 4 extremities. Laboratory Results - last 24 hr 11/25/18 05:25 Sodium 130 L Potassium 4.7 Chloride 98 Carbon Dioxide 27 Anion Gap 5 L BUN 12 Creatinine 0.7 Creat Clearance w eGFR > 60 Random Glucose 94 Calcium 7.6 L Phosphorus 3.8 Magnesium 1.6 L Total Bilirubin 1.2 H AST 58 H ALT 25 Alkaline Phosphatase 134 H Total Protein 6.2 L Albumin 1.5 L Current Medications Generic Name Dose Route Start Last Admin Trade Name Freq PRN Reason Stop Dose Admin Acetaminophen 325 mg 11/18/18 10:49 11/26/18 05:09 Tylenol - PO 325 mg Q6HPO PRN Administration PAIN LEVEL 4 - 6 Acyclovir 400 mg 11/22/18 10:07 11/26/18 09:57 Zovirax - PO 11/26/18 23:59 400 mg DAILY AD[facility]AN Administration Docusate Sodium 100 mg 11/19/18 21:46 Colace - PO BID PRN CONSTIPATION Furosemide 40 mg 11/21/18 11:15 11/26/18 09:57 Lasix - PO 40 mg DAILY ADRIAN Administration Ceftriaxone Sodium 2 gm/ 100 mls @ 200 mls/hr 11/22/18 10:00 11/26/18 11:11 Dextrose IVPB 200 mls/hr DAILY ADRIAN Administration Protocol Lactulose 20 gm 11/21/18 14:00 11/26/18 05:09 Cephulac (Oral Use) PO 20 gm TID ADRIAN Administration Magnesium Oxide 400 mg 11/22/18 10:00 11/26/18 09:57 Mag-Ox - PO 400 mg BID ADRIAN Administration Oxycodone HCl 5 mg 11/24/18 16:45 11/26/18 05:09 Roxicodone - PO 5 mg Q8H PRN Administration PAIN LEVEL 7-10 Potassium Chloride 40 meq 11/17/18 13:45 11/26/18 09:57 K-Dur - PO 40 meq DAILY AD[facility]AN Administration Simethicone 80 mg 11/19/18 21:45 11/24/18 10:47 Mylicon - PO 80 mg Q4H PRN Administration GAS Spironolactone 100 mg 11/17/18 13:30 11/26/18 09:57 Aldactone - PO 100 mg DAILY [facility] Administration Vancomycin HCl 1,000 mg 11/24/18 20:00 11/26/18 08:21 Vancomycin (Pre-Docked) IVPB 1,000 mg BID@0800,2000 AD[facility]AN Administration ASSESSMENT AND PLAN: 48 year old female with Liver Cirrhosis secondary to Chronic Hepatitis C and Alcohol abuse, presented with worsening abdominal distension and peripheral edema, admitted 11/16. 1. Ascites and Peripheral edema secondary to Portal Hypertension and hypoalbuminemia sec to Liver Cirrhosis due to HepC/Alcohol abuse s/p Paracentesis with 5.5L drained, culture negative. s/p IV Lasix diuresis for 01/24 then switched to po Venous Duplex LEs neg for DVT. Continue oral Spironolactone and Lasix. Lactulose 20mg TID to ensure 3-4 soft BMs daily. GI following. Last drink 6 months ago. Tramadol changed to Oxy for better pain control. 2. Elevated Tumor markers CA 19/9 - 54 and CA 125 - 241) - CT A/P: Liver Cirrhosis, portal venous hypertension, no solid masses. Can consider Pelvic US as an out-patient. 3. Cellulitis RLE, possible abscess clinically - US shows possible abscess. Only mild improvement with IV Ceftriaxone. ID added Vanco 02/22/18 Surgery consulted - felt to be hematoma - for surgical re-eval today for possible I and D if CT RLE indicates possible abscess. Afebrile, Hemodynamically Stable. 4. Chronic Macrocytic Anemia/Thrombocytopenia (H/H 9.3, MCV 107, Plts 87), secondary to Liver Cirrhosis - no evidence of bleeding. INR 1.27 5. Hypomagnesemia - repleted. 6. 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 7. Lightheadedness on standing - resolved - no neuro deficits - Orthostatic vitals negative. PT eval requested. DVT Px - Heparin SQ held due to Thrombocytopenia.
[2018-11-26 12:42] LABS: INR 1.26 (0.83-1.09); PROTHROMBIN TIME (PATIENT) 14.9 SEC (9.7-13.0)
--- NOTE | 2018-11-26 13:00 | PN ---
Progress Note, Physician History of Present Illness: surgical note noted patient swelling has localized and probably formed abscess vs hematoma painful no other issues - Current Medication List Current Medications: Active Medications Acetaminophen (Tylenol -) 325 mg PO Q6HPO PRN PRN Reason: PAIN LEVEL 4 - 6 Last Admin: 11/26/18 05:09 Dose: 325 mg Acyclovir (Zovirax -) 400 mg PO DAILY [facility] Stop: 11/26/18 23:59 Last Admin: 11/26/18 09:57 Dose: 400 mg Docusate Sodium (Colace -) 100 mg PO BID PRN PRN Reason: CONSTIPATION Furosemide (Lasix -) 40 mg PO DAILY [facility] Last Admin: 11/26/18 09:57 Dose: 40 mg Ceftriaxone Sodium 2 gm/ (Dextrose) 100 mls @ 200 mls/hr IVPB DAILY [facility]; Protocol Last Admin: 11/26/18 11:11 Dose: 200 mls/hr Lactulose (Cephulac (Oral Use)) 20 gm PO TID [facility] Last Admin: 11/26/18 05:09 Dose: 20 gm Magnesium Oxide (Mag-Ox -) 400 mg PO BID [facility] Last Admin: 11/26/18 09:57 Dose: 400 mg Oxycodone HCl (Roxicodone -) 5 mg PO Q8H PRN PRN Reason: PAIN LEVEL 7-10 Last Admin: 11/26/18 05:09 Dose: 5 mg Potassium Chloride (K-Dur -) 40 meq PO DAILY [facility] Last Admin: 11/26/18 09:57 Dose: 40 meq Simethicone (Mylicon -) 80 mg PO Q4H PRN PRN Reason: GAS Last Admin: 11/24/18 10:47 Dose: 80 mg Spironolactone (Aldactone -) 100 mg PO DAILY [facility] Last Admin: 11/26/18 09:57 Dose: 100 mg Vancomycin HCl (Vancomycin (Pre-Docked)) 1,000 mg IVPB BID@0800,2000 [facility] Last Admin: 11/26/18 08:21 Dose: 1,000 mg - Objective Vital Signs: Vital Signs Temperature 97.9 F 11/26/18 10:00 Pulse Rate 70 11/26/18 10:00 Respiratory Rate 20 11/26/18 10:00 Blood Pressure 124/67 11/26/18 10:00 O2 Sat by Pulse Oximetry (%) 96 11/26/18 09:00 Constitutional: Yes: No Distress, Calm Cardiovascular: Yes: Regular Rate and Rhythm Respiratory: Yes: Regular, CTA Bilaterally Gastrointestinal: Yes: Normal Bowel Sounds, Soft Musculoskeletal: Yes: Other Extremities: Yes: Other (thigh collection has increased and localized) Neurological: Yes: Alert, Oriented Psychiatric: Yes: Alert, Oriented Labs: CBC, BMP 11/25/18 05:25 11/25/18 05:25 INR, PTT INR 1.26 (0.83-1.09) H 11/26/18 12:05 Assessment/Plan Patient is a 48 year old female with history of cirrhosis secondary to alcohol abuse, hepatitis C, presents with complaint of diffuse abdominal and lower extremity swelling. ascites cellulitis of the left lower ext b/l swelling of the leg etoh abuse transaminitis plan continue abx consider getting a ct scan final plan need to be made rest as per the team
[2018-11-26] MEDS ORDERED: PT OWN MED DRAWER 7, Y5N ONE (21:45)
[2018-11-27] MEDS ORDERED: diphenhydrAMINE HCL 25 MG CAPSULE (FP) PO ONE ×2 (01:17→23:45)
[2018-11-27] MEDS ORDERED: PT OWN MED DRAWER 7, Y5N ONE ×2 (05:42→21:09)
[2018-11-27] MEDS: LACTULOSE 20 GM/30 ML UDC (FOR ORAL USE ONLY) PO SCH ×3 (06:15→21:22)
[2018-11-27 07:04] LABS: HEMATOCRIT 30.5 % (32.4-45.2); HEMOGLOBIN 10.4 GM/dL (10.7-15.3); MCH 37.2 pg (25.7-33.7); MCHC 34.2 g/dl (32.0-36.0); MEAN CELL VOLUME 108.6 fl (80-96); PLATELET COUNT 123 K/MM3 (134-434); RBC 2.81 M/mm3 (3.60-5.2); RDW 14.6 % (11.6-15.6); WHITE BLOOD COUNT 6.6 K/mm3 (4.0-10.0)
[2018-11-27 08:11] LABS: ALBUMIN 1.8 g/dl (3.4-5.0); ALK PHOS 175 U/L (45-117); ANION GAP 7 MMOL/L (8-16); BILIRUBIN,TOTAL 1.8 mg/dL (0.2-1); BLOOD UREA NITROGEN 15 mg/dL (7-18); CALCIUM 7.9 mg/dL (8.5-10.1); CHLORIDE 97 mmol/L (98-107); CO2 28 mmol/L (21-32); CREATININE 0.8 mg/dL (0.55-1.3); GLUCOSE,RANDOM 86 mg/dL (74-106); MAGNESIUM 1.9 mg/dL (1.8-2.4); POTASSIUM 4.5 mmol/L (3.5-5.1); SGOT/AST 74 U/L (15-37); SGPT/ALT 34 U/L (13-61); SODIUM 131 mmol/L (136-145)
[2018-11-27] MEDS ORDERED: DEXTROSE 5%-WATER 100 ML IVPB ONE (08:42)
[2018-11-27] MEDS: CEFTRIAXONE 2 GM in DEXTROSE 5%-WATER 100 ML IVPB SCH (09:00)
[2018-11-27] MEDS: VANCOMYCIN 1 GRAM (PRE-DOCKED) 1,000 MG/250 ML BAG IVPB SCH ×2 (10:45→21:21)
--- NOTE | 2018-11-27 11:08 | PN ---
Physical Exam: SUBJECTIVE: Patient seen and examined at bedside this morning. Patient is NPO since midnight for surgical drainage of right lower extremity. Patient denies fevers, chills, shortness of breath, chest pain, palpitations, abdominal pain, nausea, vomiting. OBJECTIVE: Vital Signs Period Temp Pulse Resp BP Sys/Mittal Pulse Ox Last 24 Hr 98.2 F-99 F 71-91 18-20 120-140/67-71 95-97 GENERAL: Awake, alert, and fully oriented, in no acute distress. HEAD: Normal with no signs of trauma. EYES: Pupils equal, round and reactive to light, extraocular movements intact, sclera anicteric. EARS, NOSE, THROAT: Oropharynx clear without exudates. Moist mucous membranes. NECK: Supple without lymphadenopathy. LUNGS: Breath sounds equal, clear to auscultation bilaterally. No wheezes, and no crackles. No accessory muscle use. HEART: Regular rate and rhythm, normal S1 and S2 without murmur, rub or gallop. ABDOMEN: Distended. Diffusely tender to palpation X4 quadrants. Tympanic to percussion X 4 quadrants. Hypoactive bowel sounds X4 quadrants. No guarding, no rebound tenderness. Two vertical scars noted from prior surgeries. Healed, clean dry. MUSCULOSKELETAL: Patient has improving motion of right lower extremity, limited due to pain and swelling. Patient freely moves B/L upper extremities and left lower extremity. UPPER EXTREMITIES: 2+ radial pulses b/l, warm, well-perfused. LOWER EXTREMITIES: 1+ dorsalis pedis pulses b/l. Right lower extremity indurated and tender to palpation. Trace pitting edema B/L lower extremities. NEUROLOGICAL: Cranial nerves II-XII intact. Normal speech. PSYCHIATRIC: Cooperative. Appropriate mood and affect. Laboratory Results - last 24 hr 11/26/18 11/27/18 11/27/18 12:05 06:30 06:30 WBC 6.6 RBC 2.81 L Hgb 10.4 L Hct 30.5 L MCV 108.6 H MCH 37.2 H MCHC 34.2 RDW 14.6 Plt Count 123 L D MPV 7.0 L PT with INR 14.90 H INR 1.26 H PTT (Actin FS) 35.0 Sodium 131 L Potassium 4.5 Chloride 97 L Carbon Dioxide 28 Anion Gap 7 L BUN 15 Creatinine 0.8 Creat Clearance w eGFR > 60 Random Glucose 86 Calcium 7.9 L Phosphorus 4.0 Magnesium 1.9 Total Bilirubin 1.8 H AST 74 H ALT 34 Alkaline Phosphatase 175 H Total Protein 7.0 Albumin 1.8 L Active Medications Generic Name Dose Route Start Last Admin Trade Name Freq PRN Reason Stop Dose Admin Acetaminophen 325 mg 11/18/18 10:49 11/26/18 23:04 Tylenol - PO 325 mg Q6HPO PRN Administration PAIN LEVEL 4 - 6 Docusate Sodium 100 mg 11/19/18 21:46 Colace - PO BID PRN CONSTIPATION Furosemide 40 mg 11/21/18 11:15 11/26/18 09:57 Lasix - PO 40 mg DAILY ADRIAN Administration Ceftriaxone Sodium 2 gm/ 100 mls @ 200 mls/hr 11/22/18 10:00 11/27/18 09:00 Dextrose IVPB 200 mls/hr DAILY ADRIAN Administration Protocol Lactulose 20 gm 11/21/18 14:00 11/27/18 06:15 Cephulac (Oral Use) PO Not Given TID ADRIAN Magnesium Oxide 400 mg 11/22/18 10:00 11/26/18 21:01 Mag-Ox - PO 400 mg BID ADRIAN Administration Oxycodone HCl 5 mg 11/24/18 16:45 11/26/18 21:01 Roxicodone - PO 5 mg Q8H PRN Administration PAIN LEVEL 7-10 Potassium Chloride 40 meq 11/17/18 13:45 11/26/18 09:57 K-Dur - PO 40 meq DAILY ADRIAN Administration Simethicone 80 mg 11/19/18 21:45 11/24/18 10:47 Mylicon - PO 80 mg Q4H PRN Administration GAS Spironolactone 100 mg 11/17/18 13:30 11/26/18 09:57 Aldactone - PO 100 mg DAILY ADRIAN Administration Vancomycin HCl 1,000 mg 11/24/18 20:00 11/27/18 10:45 Vancomycin (Pre-Docked) IVPB 1,000 mg BID@0800,2000 ADRIAN Administration ASSESSMENT/PLAN: Patient is a 48 year old female with history of cirrhosis secondary to alcohol abuse, hepatitis C, presents with complaint of diffuse abdominal and lower extremity swelling. Anasarca -Likely secondary to cirrhosis, noted on CT abdomen and pelvis from 08/2018. -Abdominal pain is likely secondary to pressure from the ascites -S/P paracentesis (11/09) with 5500cc serous fluid removed. F/U serology, and microbiology. -Spironolactone 100mg PO daily -Lactulose 20grams PO TID -Lasix 40mg PO daily -Pain control Oxycodone 5mg PO Q8H PRN for pain 6 -10 -GI consult (Dr. Romeo) appreciated. Considering history of elevated CA 19-[address] abdomen pelvis ordered. -Hepatic cirrhosis, portal hypertension, extensive varices. Gastric antral thickening noted. Scattered diverticula withotu diverticulitis. Lower extremity swelling -CT lower extremity shows ascites and extensive subucateous edema without discrete fluid collection suggestive of abscess/ hematoma. -Duplex US B/L lower extremities negative for DVT -Rocephin 2grams IV daily for likely cellulitis (day 11) -Vancomycin 1 gram IV BID (day 3) -US soft tissue shows fluid collection, possibly suggestive of abscess formation. -Surgical consult (Dr. Monique) appreciated. Unlikely to be developing abscess, more likely hematoma. Patient for surgical drainage today. -Repeat CT lower extremity shows subcutaneous fluid collection suspicious for abscess. History of ETOH abuse -Patient states last drink was 6 months ago. Currently not in withdrawal. -Counselled patient regarding importance of alcohol abstinence. -Monitor closely for withdrawal Hyponatremia -Likely secondary to volume overload. -Monitor CMP closely. Transaminitis -Labs not significantly different from prior studies. Likely chronic. -Trend CMP Oral HSV -Completed 5 day course Acyclovir 400mg. FEN -No IV fluids -Follow CMP -Sodium controlled diet Prophylaxis -Heparin 5000u subq TID Disposition -Continue care in medical-surgical floor Fall precautions Visit type - Emergency Visit Emergency Visit: Yes ED Registration Date: 11/16/18 Care time: The patient presented to the Emergency Department on the above date and was hospitalized for further evaluation of their emergent condition. - New Patient This patient is new to me today: No - Critical Care Critical Care patient: No - Discharge Referral Referred to [facility] Med P.C.: No
[2018-11-27] MEDS: FUROSEMIDE 40 MG TABLET (FP) PO SCH (11:26)
[2018-11-27] MEDS: POTASSIUM CHLORIDE TABS 20 MEQ TABLET.ER (FP) PO SCH (11:26)
[2018-11-27] MEDS: SPIRONOLACTONE 25 MG TABLET (FP) PO SCH (11:26)
[2018-11-27] MEDS: MAGNESIUM OXIDE 400 MG TABLET (FP) PO SCH ×2 (11:26→21:34)
--- NOTE | 2018-11-27 12:19 | PN ---
Progress Note, Physician History of Present Illness: Covering for Dr. Monique: 48yo F with multiple medical problems including hep C and alcoholic cirrhosis with ascites and portal hypertension with varices and thrombocytopenia. She has a right medial thigh fluid collection that has gotten somewhat larger over the last week, likely hematoma initially, possibly abscess though infection is unlikely. It is quite painful and pointing, and drainage is desired. Repeat imaging cannot distinguish between hematoma and abscess. She understands there is a higher risk of bleeding, but is agreeable to I&D. She is NPO today and on antibiotics per ID. - Current Medication List Current Medications: Active Medications Acetaminophen (Tylenol -) 325 mg PO Q6HPO PRN PRN Reason: PAIN LEVEL 4 - 6 Last Admin: 11/26/18 23:04 Dose: 325 mg Docusate Sodium (Colace -) 100 mg PO BID PRN PRN Reason: CONSTIPATION Furosemide (Lasix -) 40 mg PO DAILY [facility] Last Admin: 11/27/18 11:26 Dose: Not Given Ceftriaxone Sodium 2 gm/ (Dextrose) 100 mls @ 200 mls/hr IVPB DAILY [facility]; Protocol Last Admin: 11/27/18 09:00 Dose: 200 mls/hr Lactulose (Cephulac (Oral Use)) 20 gm PO TID [facility] Last Admin: 11/27/18 06:15 Dose: Not Given Magnesium Oxide (Mag-Ox -) 400 mg PO BID [facility] Last Admin: 11/27/18 11:26 Dose: Not Given Oxycodone HCl (Roxicodone -) 5 mg PO Q8H PRN PRN Reason: PAIN LEVEL 7-10 Last Admin: 11/26/18 21:01 Dose: 5 mg Potassium Chloride (K-Dur -) 40 meq PO DAILY [facility] Last Admin: 11/27/18 11:26 Dose: Not Given Simethicone (Mylicon -) 80 mg PO Q4H PRN PRN Reason: GAS Last Admin: 11/24/18 10:47 Dose: 80 mg Spironolactone (Aldactone -) 100 mg PO DAILY [facility] Last Admin: 11/27/18 11:26 Dose: Not Given Vancomycin HCl (Vancomycin (Pre-Docked)) 1,000 mg IVPB BID@0800,2000 [facility] Last Admin: 11/27/18 10:45 Dose: 1,000 mg - Objective Vital Signs: Vital Signs Temperature 98.2 F 11/27/18 08:22 Pulse Rate 71 11/27/18 08:22 Respiratory Rate 18 11/27/18 09:00 Blood Pressure 132/67 11/27/18 08:22 O2 Sat by Pulse Oximetry (%) 97 11/27/18 09:00 Constitutional: Yes: Well Nourished, No Distress, Calm Eyes: Yes: Conjunctiva Clear, EOM Intact HENT: Yes: Atraumatic, Normocephalic Gastrointestinal: Yes: Soft, Distention (with ascites) Extremities: No: Cool, Cyanosis Integumentary: Yes: Bruising (few scattered ecchymoses on limbs), Other (right medial thigh raised, indurated, tender lump, pointing with local erythema, no drainage, partly fluctuant/underlying fluid). No: Jaundice, Rash Wound/Incision: Yes: Open to air, Reddened (locally only). No: Draining Neurological: Yes: Alert, Oriented Labs: CBC, BMP 11/27/18 06:30 11/27/18 06:30 INR, PTT INR 1.26 (0.83-1.09) H 11/26/18 12:05 platelets over 100 today no wbc INR a little elevated - ....Imaging Cat Scan: Report Reviewed, Image Reviewed (images personally reviewed - 4 x 3cm subcutaneous collection right medial thigh with edema) Problem List - Problems (1) Traumatic hematoma of thigh Assessment/Plan: fluid collection in right medial thigh, likely hematoma, possibly infected Discussed with patient risks, benefits and alternatives of incision and drainage of right medial thigh fluid collection, including but not limited to bleeding, infection; alternatives include antibiotics, delayed or no surgery - risks of this include spontaneous drainage, progression of infection, sepsis, need for more extensive procedure. Patient desires to proceed with operation - will take to OR for above. Informed consent signed for same. Bulgarian phone clinical product specialist used at bedside. pain meds prn postop, especially for dressing changes will need VNS arranged by KAYLAH/BRETT for daily packing changes on discharge further details to follow surgery will obtain culture if pus encountered Code(s): S70.10XA - CONTUSION OF UNSPECIFIED THIGH, INITIAL ENCOUNTER Qualifiers: Encounter type: sequela Laterality: right Qualified Code(s): S70.11XS - Contusion of right thigh, sequela (2) Thrombocytopenia Code(s): D69.6 - THROMBOCYTOPENIA, UNSPECIFIED (3) Alcoholic cirrhosis of liver with ascites Code(s): K70.31 - ALCOHOLIC CIRRHOSIS OF LIVER WITH ASCITES (4) Hepatitis C Code(s): B19.20 - UNSPECIFIED VIRAL HEPATITIS C WITHOUT HEPATIC COMA Qualifiers: Viral hepatitis chronicity: chronic Hepatic coma status: without hepatic coma Qualified Code(s): B18.2 - Chronic viral hepatitis C
--- NOTE | 2018-11-27 12:32 | PN ---
Progress Note, Physician History of Present Illness: patient being taken to the or for drainage no other issues - Current Medication List Current Medications: Active Medications Acetaminophen (Tylenol -) 325 mg PO Q6HPO PRN PRN Reason: PAIN LEVEL 4 - 6 Last Admin: 11/26/18 23:04 Dose: 325 mg Docusate Sodium (Colace -) 100 mg PO BID PRN PRN Reason: CONSTIPATION Furosemide (Lasix -) 40 mg PO DAILY [facility] Last Admin: 11/27/18 11:26 Dose: Not Given Ceftriaxone Sodium 2 gm/ (Dextrose) 100 mls @ 200 mls/hr IVPB DAILY [facility]; Protocol Last Admin: 11/27/18 09:00 Dose: 200 mls/hr Lactulose (Cephulac (Oral Use)) 20 gm PO TID [facility] Last Admin: 11/27/18 06:15 Dose: Not Given Magnesium Oxide (Mag-Ox -) 400 mg PO BID [facility] Last Admin: 11/27/18 11:26 Dose: Not Given Oxycodone HCl (Roxicodone -) 5 mg PO Q8H PRN PRN Reason: PAIN LEVEL 7-10 Last Admin: 11/26/18 21:01 Dose: 5 mg Potassium Chloride (K-Dur -) 40 meq PO DAILY [facility] Last Admin: 11/27/18 11:26 Dose: Not Given Simethicone (Mylicon -) 80 mg PO Q4H PRN PRN Reason: GAS Last Admin: 11/24/18 10:47 Dose: 80 mg Spironolactone (Aldactone -) 100 mg PO DAILY [facility] Last Admin: 11/27/18 11:26 Dose: Not Given Vancomycin HCl (Vancomycin (Pre-Docked)) 1,000 mg IVPB BID@799,1999 [facility] Last Admin: 11/27/18 10:45 Dose: 1,000 mg - Objective Vital Signs: Vital Signs Temperature 98.2 F 11/27/18 08:22 Pulse Rate 71 11/27/18 08:22 Respiratory Rate 18 11/27/18 09:00 Blood Pressure 132/67 11/27/18 08:22 O2 Sat by Pulse Oximetry (%) 97 11/27/18 09:00 Constitutional: Yes: Calm, Mild Distress Respiratory: Yes: Regular Gastrointestinal: Yes: Soft, Ascites, Distention Musculoskeletal: Yes: WNL Extremities: Yes: Erythema, Other Neurological: Yes: Alert, Oriented Psychiatric: Yes: Alert, Oriented Labs: CBC, BMP 11/27/18 06:30 11/27/18 06:30 INR, PTT INR 1.26 (0.83-1.09) H 11/26/18 12:05 Assessment/Plan Patient is a 48 year old female with history of cirrhosis secondary to alcohol abuse, hepatitis C, presents with complaint of diffuse abdominal and lower extremity swelling. ascites cellulitis of the left lower ext b/l swelling of the leg etoh abuse transaminitis plan continue abx for or if abscess cx rest as per the team
[2018-11-27] MEDS ORDERED: PROPOFOL 20 ML ONE ×2 (13:00→13:02)
[2018-11-27] MEDS ORDERED: LIDOCAINE HCL/PF 2% SDV 5ML VIAL ONE (13:00)
[2018-11-27] MEDS ORDERED: MIDAZOLAM HCL 2 MG/2 ML SINGLE DOSE VIAL ONE (13:00)
[2018-11-27] MEDS ORDERED: BUPIVACAINE HCL/PF (5 MG/ML) 30 ML VIAL IJ ONE ×2 (13:22)
--- NOTE | 2018-11-27 14:03 | OP ---
Operative Note - Note: Operative Date: 11/27/18 Pre-Operative Diagnosis: right medial thigh fluid collection Operation: incision and drainage of right medial thigh fluid collection ( complicated) Findings: mostly hematoma with some purulence, evacuated about 30ml bloody drainage; wound measured 3 x 1.5 x 3cm at end; packed open Post-Operative Diagnosis: Other (right medial thigh infected hematoma) Surgeon: Max Hines Anesthesiologist/CITY WELLNESS COORDINATOR: Yun Zuñiga Anesthesia: General (LMA), Local (20ml 0.5% marcaine) Specimens Removed: wound swab culture to micro Estimated Blood Loss (mls): 10 Fluid Volume Replaced (mls): 200 (crystalloid) Operative Report Dictated: Yes
[2018-11-27] MEDS ORDERED: MORPHINE SULFATE 2 MG/ML VIAL IVPUSH PRN (14:08)
[2018-11-27] MEDS ORDERED: oxyCODONE HCL 5 MG TABLET PO PRN (14:08)
[2018-11-27] MEDS ORDERED: ACETAMINOPHEN 325 MG TABLET (FP) PO PRN (14:08)
[2018-11-27] MEDS ORDERED: SODIUM CHLORIDE 1,000 ML IV SCH (14:15)
[2018-11-27] MEDS ORDERED: SIMETHICONE 80 MG TAB.CHEW (FP) PO PRN (14:51)
[2018-11-27] MEDS ORDERED: morphine CARPU-JECT 2 MG/1 ML DISP.SYRIN IVPUSH PRN (14:51)
[2018-11-27] MEDS ORDERED: DOCUSATE SODIUM 100 MG CAPSULE (FP) PO PRN (14:51)
--- NOTE | 2018-11-27 15:27 | OP ---
DATE OF OPERATION: 11/27/2018 PREOPERATIVE DIAGNOSIS: Right medial thigh fluid collection. POSTOPERATIVE DIAGNOSIS: Right medial thigh infected hematoma. PROCEDURE: Incision and drainage (complicated) of right medial thigh fluid collection. SURGEON: Max Hines MD ANESTHESIA: General by LMA and local, 20 mL of 0.5% Marcaine. ESTIMATED BLOOD LOSS: 10 mL FLUIDS: Crystalloid 200 mL. SPECIMEN: Swab wound culture to Microbiology. FINDINGS: Mostly hematoma content with some purulence. Approximately 30 mL bloody drainage evacuated. The wound measured 3 x 1.5 x 3 cm at the end, was packed open. DISPOSITION: Stable and awake to PACU. INDICATIONS FOR PROCEDURE: The patient is a 48-year-old female with multiple medical problems including hepatitis C and alcoholic cirrhosis with ascites and portal hypertension with varices and thrombocytopenia. She has been hospitalized for problems including ascites and has undergone paracentesis as well as a small right medial thigh fluid collection that has gotten somewhat larger over the last week, thought to be a hematoma, possibly an abscess, though infection has been thought to be unlikely. She has no white count, but it is quite painful, pointing, and drainage has been desired by the primary team and the patient. Surgery has seen her multiple times, and there has been imaging performed on a repeated basis which cannot distinguish between hematoma and abscess, but does confirm a fluid collection in the area. She understands she has a higher risk of bleeding than usual, but is agreeable to I&D. With a [place] phone kennel technician, discussion was had with the patient regarding risks, benefits, and alternatives of incision and drainage of right medial thigh fluid collection including, but not limited to, bleeding and infection. Alternatives inclusive of antibiotics and no surgery include concomitant risks of progression of infection, spontaneous drainage, sepsis, need for more extensive procedure. The patient is agreeable to proceed and signed informed consent for the same, is now brought to the OR for this procedure. OPERATIVE TECHNIQUE: The patient was brought to the operating room and laid supine on the operating table. Sequential compression devices were not used as the patient is both low risk for thrombotic complications and the procedure was going to be quite short. The patient is on antibiotics on the floor. No additional antibiotics are given in the operating room. After induction by Anesthesia and placement of a laryngeal mask airway, the patient's right anterior medial thigh was gently placed up on a small bump and prepped and draped with ChloraPrep in sterile fashion. Next, 10 mL of local anesthetic were infiltrated around the area of known fluid collection to start, and an elliptical incision was made around the most pointing part of the collection with a scalpel and carried into the cavity until a small ellipse was removed. Initially, the fluid encountered was bloody, consistent with an old hematoma, but toward the middle part of the drainage, it turned somewhat purulent. A culture was taken from the deep portion of the wound on a swab and sent to Microbiology. Suction was used to continue to evacuate the bloody drainage from the wound, which again being partly purulent indicated an infected hematoma. Hemostasis was achieved in part at the edges of the wound with electrocautery. A fingertip was used to probe the cavity and identify additional space superiorly over several centimeters. Thus, a small additional portion of an ellipse of skin and subcutaneous tissue was excised with the Bovie cautery to extend the opening superiorly and allow adequate access for hemostasis and packing. Tissue excised was not sent as a specimen. The cavity had appropriate bleeding from all surfaces, and muscle was visible in the base of the wound. Hemostasis was achieved meticulously and in segmental fashion using electrocautery, gauze, and suction as well as retraction with an [employer] until the entire cavity was noted to be hemostatic. The cavity was irrigated with saline solution and no further bleeding noted. It was measured as 3 cm x 1.5 cm x 3 cm deep. The cavity was again irrigated with saline solution and hemostasis assured. It was then packed with 1/2-inch Iodoform ribbon, covered with a folded 4 x 4, and dressed with silk tape. Before final dressing, an additional 10 mL of local anesthetic was infiltrated into the deep portion of the wound from the edges of the incision for a total of 20 mL of 0.5% Marcaine. Counts were correct at the end of the procedure. The patient was then awakened, the LMA removed, and she was returned to her bed, and taken to the recovery room in stable condition, having tolerated the procedure well. Max Hines M.D. [id number]
--- NOTE | 2018-11-27 16:18 | PN ---
Teaching Attending Note Name of Resident: Horace Maurice ATTENDING PHYSICIAN STATEMENT I saw and evaluated the patient. I reviewed the resident's note and discussed the case with the resident. I agree with the resident's findings and plan as documented. SUBJECTIVE: Patient complains of right thigh pain. OBJECTIVE: Vital Signs Period Temp Pulse Resp BP Sys/Mittal Pulse Ox Last 24 Hr 98.0 F-99 F 71-91 16-18 105-140/58-80 95-100 HEART: S1S2, RRR LUNGS: Clear ABDOMEN: Soft, mild distention, non-tender, normal BS EXTREMITIES: Trace edema. Right thigh indurated, tender. Laboratory Results - last 24 hr 11/27/18 11/27/18 06:30 06:30 WBC 6.6 RBC 2.81 L Hgb 10.4 L Hct 30.5 L MCV 108.6 H MCH 37.2 H MCHC 34.2 RDW 14.6 Plt Count 123 L D MPV 7.0 L Sodium 131 L Potassium 4.5 Chloride 97 L Carbon Dioxide 28 Anion Gap 7 L BUN 15 Creatinine 0.8 Creat Clearance w eGFR > 60 Random Glucose 86 Calcium 7.9 L Phosphorus 4.0 Magnesium 1.9 Total Bilirubin 1.8 H AST 74 H ALT 34 Alkaline Phosphatase 175 H Total Protein 7.0 Albumin 1.8 L Current Medications Generic Name Dose Route Start Last Admin Trade Name Freq PRN Reason Stop Dose Admin Acetaminophen 650 mg 11/27/18 14:51 Tylenol - PO Q6H PRN Pain Level 4 - 10 Docusate Sodium 100 mg 11/27/18 14:51 Colace - PO BID PRN CONSTIPATION Furosemide 40 mg 11/28/18 10:00 Lasix - PO DAILY [facility] Ceftriaxone Sodium 2 gm/ 100 mls @ 200 mls/hr 11/28/18 10:00 Dextrose IVPB DAILY [facility] Protocol Lactulose 20 gm 11/27/18 22:00 Cephulac (Oral Use) PO TID [facility] Magnesium Oxide 400 mg 11/27/18 22:00 Mag-Ox - PO BID [facility] Morphine Sulfate 2 mg 11/27/18 14:51 Morphine Injection - IVPUSH Q4H PRN Pain Level 8 - 10 BREAKTHROUGH Oxycodone HCl 5 mg 11/27/18 14:51 Roxicodone - PO Q4H PRN PAIN LEVEL 7-10 Potassium Chloride 40 meq 11/28/18 10:00 K-Dur - PO DAILY [facility] Simethicone 80 mg 11/27/18 14:51 Mylicon - PO Q4H PRN GAS Spironolactone 100 mg 11/28/18 10:00 Aldactone - PO DAILY [facility] Vancomycin HCl 1,000 mg 11/27/18 20:00 Vancomycin (Pre-Docked) IVPB BID@0800,1999 [facility] ASSESSMENT AND PLAN: This is a 48 year old woman with a history of cirrhosis, chronic hepatitis C, alcohol abuse who presented to the ED with worsening abdominal distention and peripheral edema. 1. Right thigh hematoma vs abscess with cellulitis - Continue ceftriaxone, vancomycin - Plan for I&D today 2. Cirrhosis with ascites, peripheral edema, portal hypertension, hypoalbuminemia - Continue Aldactone, Lasix, Lactulose 3. Anemia, thrombocytopenia - Chronic, secondary to cirrhosis - Stable 4. Hypomagnesemia - Improved 5. Hyponatremia - Secondary to cirrhosis - Stable 6. Chronic hepatitis C 7. History of alcohol abuse 8. Herpes labialis - Completed Acyclovir
[2018-11-27] MEDS: oxyCODONE HCL 5 MG TABLET PO PRN ×2 (16:36→21:21)
[2018-11-27] MEDS: ACETAMINOPHEN 325 MG TABLET (FP) PO PRN (16:37)
[2018-11-28] MEDS ORDERED: PT OWN MED DRAWER 7, Y5N ONE ×3 (03:32→06:35)
[2018-11-28] MEDS: oxyCODONE HCL 5 MG TABLET PO PRN ×3 (04:52→21:26)
[2018-11-28] MEDS: LACTULOSE 20 GM/30 ML UDC (FOR ORAL USE ONLY) PO SCH ×3 (06:18→21:24)
[2018-11-28 07:37] LABS: HEMATOCRIT 24.9 % (32.4-45.2); HEMOGLOBIN 8.5 GM/dL (10.7-15.3); MCHC 34.3 g/dl (32.0-36.0); MEAN CELL VOLUME 108.1 fl (80-96); MEAN PLT VOLUME 7.3 fl (7.5-11.1); PLATELET COUNT 97 K/MM3 (134-434); RBC 2.31 M/mm3 (3.60-5.2); RDW 14.4 % (11.6-15.6); WHITE BLOOD COUNT 4.1 K/mm3 (4.0-10.0)
[2018-11-28 07:46] LABS: ALBUMIN 1.4 g/dl (3.4-5.0); ALK PHOS 146 U/L (45-117); ANION GAP 4 MMOL/L (8-16); BILIRUBIN,TOTAL 1.1 mg/dL (0.2-1); BLOOD UREA NITROGEN 17 mg/dL (7-18); CALCIUM 7.4 mg/dL (8.5-10.1); CHLORIDE 99 mmol/L (98-107); CO2 27 mmol/L (21-32); CREATININE 0.7 mg/dL (0.55-1.3); GLUCOSE,RANDOM 108 mg/dL (74-106); POTASSIUM 4.6 mmol/L (3.5-5.1); SGOT/AST 68 U/L (15-37); SGPT/ALT 30 U/L (13-61); SODIUM 130 mmol/L (136-145); TOT PROT 5.9 g/dl (6.4-8.2)
[2018-11-28] MEDS: VANCOMYCIN 1 GRAM (PRE-DOCKED) 1,000 MG/250 ML BAG IVPB SCH (09:00)
--- NOTE | 2018-11-28 09:04 | PN ---
GI Progress Note Subjective: States feeling better. Denies abdominal pain. Denies nausea, vomiting. - Objective Vital Signs: Vital Signs Temperature 98.3 F 11/28/18 05:50 Pulse Rate 84 11/28/18 05:50 Respiratory Rate 18 11/28/18 05:50 Blood Pressure 118/73 11/28/18 05:50 O2 Sat by Pulse Oximetry (%) 100 11/27/18 21:00 Constitutional: Well Nourished, No Distress, Calm Eyes: Yes: Conjunctiva Clear Neck: Yes: Supple Cardiovascular: Yes: Regular Rate and Rhythm Respiratory: Yes: Regular, CTA Bilaterally Gastrointestinal Inspection: Yes: Ascites ...Auscultate: Yes: Normoactive Bowel Sounds ...Palpate: Yes: Soft ...Percussion: Yes: Tympanitic Musculoskeletal: Yes: WNL Extremities: Yes: WNL Edema: Yes Edema: LLE: Trace, RLE: Trace Wound/Incision: Yes: Dressing Dry and Intact (R inner thigh) Neurological: Yes: Alert, Oriented Psychiatric: Yes: Alert, Oriented Labs: CBC, BMP 11/28/18 06:30 11/28/18 06:30 INR, PTT INR 1.26 (0.83-1.09) H 11/26/18 12:05 Problem List - Problems (1) Hepatic cirrhosis due to chronic hepatitis C infection Assessment/Plan: R> continue Aldactone 100mg and lasix 40mg daily Code(s): B18.2 - CHRONIC VIRAL HEPATITIS C; K74.60 - UNSPECIFIED CIRRHOSIS OF LIVER
--- NOTE | 2018-11-28 09:18 | PN ---
Physical Exam: SUBJECTIVE: Patient seen and examined at bedside this morning. She is POD #1 s/ p incision and drainage of right lower extremity, drained 30cc of blood, with purulence. She endorses pain at right lower extremity that is temporarily palliated with Oxycodone. Admits passing flatus, however has not had bowel movement since procedure yesterday. OBJECTIVE: Vital Signs Period Temp Pulse Resp BP Sys/Mittal Pulse Ox Last 24 Hr 98.0 F-98.5 F 80-88 16-18 105-140/58-83 95-100 GENERAL: Awake, alert, and fully oriented, in no acute distress. HEAD: Normal with no signs of trauma. EYES: Pupils equal, round and reactive to light, extraocular movements intact, sclera anicteric. EARS, NOSE, THROAT: Oropharynx clear without exudates. Moist mucous membranes. NECK: Supple without lymphadenopathy. LUNGS: Breath sounds equal, clear to auscultation bilaterally. No wheezes, and no crackles. No accessory muscle use. HEART: Regular rate and rhythm, normal S1 and S2 without murmur, rub or gallop. ABDOMEN: Distended. Diffusely tender to palpation X4 quadrants. Tympanic to percussion X 4 quadrants. Hypoactive bowel sounds X4 quadrants. No guarding, no rebound tenderness. Two vertical scars noted from prior surgeries. Healed, clean dry. MUSCULOSKELETAL: Patient has improving motion of right lower extremity, limited due to pain and swelling. Patient freely moves B/L upper extremities and left lower extremity. UPPER EXTREMITIES: 2+ radial pulses b/l, warm, well-perfused. LOWER EXTREMITIES: 1+ dorsalis pedis pulses b/l. Right lower extremity indurated and tender to palpation. Trace pitting edema B/L lower extremities. Right lower extremity packed, and bandaged clean, dry, without bleeding or discharge. NEUROLOGICAL: Cranial nerves II-XII intact. Normal speech. PSYCHIATRIC: Cooperative. Appropriate mood and affect. Laboratory Results - last 24 hr 11/28/18 11/28/18 06:30 06:30 WBC 4.1 RBC 2.31 L Hgb 8.5 L Hct 24.9 L D MCV 108.1 H MCH 37.0 H MCHC 34.3 RDW 14.4 Plt Count 97 L D MPV 7.3 L Sodium 130 L Potassium 4.6 Chloride 99 Carbon Dioxide 27 Anion Gap 4 L BUN 17 Creatinine 0.7 Creat Clearance w eGFR > 60 Random Glucose 108 H Calcium 7.4 L Total Bilirubin 1.1 H AST 68 H ALT 30 Alkaline Phosphatase 146 H Total Protein 5.9 L Albumin 1.4 L Active Medications Generic Name Dose Route Start Last Admin Trade Name Freq PRN Reason Stop Dose Admin Acetaminophen 650 mg 11/27/18 14:51 11/27/18 16:37 Tylenol - PO 650 mg Q6H PRN Administration Pain Level 4 - 10 Docusate Sodium 100 mg 11/27/18 14:51 Colace - PO BID PRN CONSTIPATION Furosemide 40 mg 11/28/18 10:00 Lasix - PO DAILY [facility] Ceftriaxone Sodium 2 gm/ 100 mls @ 200 mls/hr 11/28/18 10:00 Dextrose IVPB DAILY [facility] Protocol Lactulose 20 gm 11/27/18 22:00 11/28/18 06:18 Cephulac (Oral Use) PO 20 gm TID [facility] Administration Magnesium Oxide 400 mg 11/27/18 22:00 11/27/18 21:34 Mag-Ox - PO 400 mg BID [facility] Administration Morphine Sulfate 2 mg 11/27/18 14:51 Morphine Injection - IVPUSH Q4H PRN Pain Level 8 - 10 BREAKTHROUGH Oxycodone HCl 5 mg 11/27/18 14:51 11/28/18 04:52 Roxicodone - PO 5 mg Q4H PRN Administration PAIN LEVEL 7-10 Potassium Chloride 40 meq 11/28/18 10:00 K-Dur - PO DAILY [facility] Simethicone 80 mg 11/27/18 14:51 Mylicon - PO Q4H PRN GAS Spironolactone 100 mg 11/28/18 10:00 Aldactone - PO DAILY [facility] Vancomycin HCl 1,000 mg 11/27/18 20:00 11/28/18 09:00 Vancomycin (Pre-Docked) IVPB 1,000 mg BID@0800,2000 [facility] Administration ASSESSMENT/PLAN: Patient is a 48 year old female with history of cirrhosis secondary to alcohol abuse, hepatitis C, presents with complaint of diffuse abdominal and lower extremity swelling. Ascites -S/P paracentesis (11/09) with 5500cc serous fluid removed. F/U serology, and microbiology. -Spironolactone 100mg PO daily -Lasix 40mg PO daily -Lactulose 20grams PO BID- patient counselled she should be having 2-3 soft bowel movements daily. -Pain control Oxycodone 5mg PO Q8H PRN for pain 6 -10 -GI consult (Dr. Romeo) appreciated. Considering history of elevated CA 19-[address] abdomen pelvis ordered. -Hepatic cirrhosis, portal hypertension, extensive varices. Gastric antral thickening noted. Scattered diverticula without diverticulitis. Lower extremity swelling -POD #1 s/p incision and drainage of right lower extremity. Drained 30cc of blood, with purulence. -CT lower extremity shows ascites and extensive subucateous edema without discrete fluid collection suggestive of abscess/ hematoma. -Repeat CT lower extremity shows subcutaneous fluid collection suspicious for abscess. -Duplex US B/L lower extremities negative for DVT -US soft tissue shows fluid collection, possibly suggestive of abscess formation. -Rocephin 2grams IV daily for likely cellulitis (day 12) -Surgical consult (Dr. Eneida Hines) appreciated. Follow wound cultures. History of ETOH abuse -Patient states last drink was 6 months ago. Currently not in withdrawal. -Counselled patient regarding importance of alcohol abstinence. -Monitor closely for withdrawal Hyponatremia -Likely secondary to volume overload. -Monitor CMP closely. Transaminitis -Labs not significantly different from prior studies. Likely chronic. -Trend CMP Oral HSV -Completed 5 day course Acyclovir 400mg. FEN -No IV fluids -Follow CMP -Sodium controlled diet Prophylaxis -Heparin 5000u subq TID Disposition -Continue care in medical-surgical floor Fall precautions Visit type - Emergency Visit Emergency Visit: Yes ED Registration Date: 11/16/18 Care time: The patient presented to the Emergency Department on the above date and was hospitalized for further evaluation of their emergent condition. - New Patient This patient is new to me today: No - Critical Care Critical Care patient: No - Discharge Referral Referred to [facility] Med P.C.: No
[2018-11-28] MEDS ORDERED: DEXTROSE 5%-WATER 100 ML IVPB ONE (09:41)
[2018-11-28] MEDS: FUROSEMIDE 40 MG TABLET (FP) PO SCH (11:06)
[2018-11-28] MEDS: SPIRONOLACTONE 25 MG TABLET (FP) PO SCH (11:06)
[2018-11-28] MEDS: POTASSIUM CHLORIDE TABS 20 MEQ TABLET.ER (FP) PO SCH (11:06)
[2018-11-28] MEDS: MAGNESIUM OXIDE 400 MG TABLET (FP) PO SCH ×2 (11:07→21:24)
--- NOTE | 2018-11-28 12:12 | PN ---
Progress Note, Physician History of Present Illness: stable doing well - Current Medication List Current Medications: Active Medications Acetaminophen (Tylenol -) 650 mg PO Q6H PRN PRN Reason: Pain Level 4 - 10 Last Admin: 11/27/18 16:37 Dose: 650 mg Docusate Sodium (Colace -) 100 mg PO BID PRN PRN Reason: CONSTIPATION Furosemide (Lasix -) 40 mg PO DAILY [facility] Last Admin: 11/28/18 11:06 Dose: 40 mg Ceftriaxone Sodium 2 gm/ (Dextrose) 100 mls @ 200 mls/hr IVPB DAILY [facility]; Protocol Lactulose (Cephulac (Oral Use)) 20 gm PO TID [facility] Last Admin: 11/28/18 06:18 Dose: 20 gm Magnesium Oxide (Mag-Ox -) 400 mg PO BID [facility] Last Admin: 11/28/18 11:07 Dose: 400 mg Morphine Sulfate (Morphine Injection -) 2 mg IVPUSH Q4H PRN PRN Reason: Pain Level 8 - 10 BREAKTHROUGH Oxycodone HCl (Roxicodone -) 5 mg PO Q4H PRN PRN Reason: PAIN LEVEL 7-10 Last Admin: 11/28/18 04:52 Dose: 5 mg Potassium Chloride (K-Dur -) 40 meq PO DAILY [facility] Last Admin: 11/28/18 11:06 Dose: 40 meq Simethicone (Mylicon -) 80 mg PO Q4H PRN PRN Reason: GAS Spironolactone (Aldactone -) 100 mg PO DAILY [facility] Last Admin: 11/28/18 11:06 Dose: 100 mg Vancomycin HCl (Vancomycin (Pre-Docked)) 1,000 mg IVPB BID@0800,2000 [facility] Last Admin: 11/28/18 09:00 Dose: 1,000 mg - Objective Vital Signs: Vital Signs Temperature 98.2 F 11/28/18 10:00 Pulse Rate 79 11/28/18 10:00 Respiratory Rate 18 11/28/18 10:00 Blood Pressure 123/86 11/28/18 10:00 O2 Sat by Pulse Oximetry (%) 100 11/28/18 09:00 Constitutional: Yes: No Distress, Calm Cardiovascular: Yes: Regular Rate and Rhythm Respiratory: Yes: Regular, CTA Bilaterally Gastrointestinal: Yes: Soft, Ascites Musculoskeletal: Yes: WNL Extremities: Yes: Erythema, Other Neurological: Yes: Alert, Oriented Psychiatric: Yes: Alert, Oriented Labs: CBC, BMP 11/28/18 06:30 11/28/18 06:30 INR, PTT INR 1.26 (0.83-1.09) H 11/26/18 12:05 Assessment/Plan Patient is a 48 year old female with history of cirrhosis secondary to alcohol abuse, hepatitis C, presents with complaint of diffuse abdominal and lower extremity swelling. ascites cellulitis of the left lower ext b/l swelling of the leg etoh abuse transaminitis plan delgado tart deescalating abx wound care rest as per the team
[2018-11-28] MEDS: CEFTRIAXONE 2 GM in DEXTROSE 5%-WATER 100 ML IVPB SCH (13:10)
[2018-11-28] MEDS: ACETAMINOPHEN 325 MG TABLET (FP) PO PRN (15:55)
--- NOTE | 2018-11-28 17:10 | PN ---
Teaching Attending Note Name of Resident: Horace Maurice ATTENDING PHYSICIAN STATEMENT I saw and evaluated the patient. I reviewed the resident's note and discussed the case with the resident. I agree with the resident's findings and plan as documented. SUBJECTIVE: Patient says pain in her right thigh is much less today. OBJECTIVE: Vital Signs Period Temp Pulse Resp BP Sys/Mittal Pulse Ox Last 24 Hr 98.0 F-98.5 F 79-88 18-18 116-140/59-86 100-100 HEART: S1S2, RRR LUNGS: Clear ABDOMEN: Soft, mildly distended, non-tender, normal BS EXTREMITIES: Trace edema. Right medial thigh wound is packed and dressed Laboratory Results - last 24 hr 11/28/18 11/28/18 06:30 06:30 WBC 4.1 RBC 2.31 L Hgb 8.5 L Hct 24.9 L D MCV 108.1 H MCH 37.0 H MCHC 34.3 RDW 14.4 Plt Count 97 L D MPV 7.3 L Sodium 130 L Potassium 4.6 Chloride 99 Carbon Dioxide 27 Anion Gap 4 L BUN 17 Creatinine 0.7 Creat Clearance w eGFR > 60 Random Glucose 108 H Calcium 7.4 L Total Bilirubin 1.1 H AST 68 H ALT 30 Alkaline Phosphatase 146 H Total Protein 5.9 L Albumin 1.4 L Current Medications Generic Name Dose Route Start Last Admin Trade Name Freq PRN Reason Stop Dose Admin Acetaminophen 650 mg 11/27/18 14:51 11/28/18 15:55 Tylenol - PO 650 mg Q6H PRN Administration Pain Level 4 - 10 Docusate Sodium 100 mg 11/27/18 14:51 Colace - PO BID PRN CONSTIPATION Furosemide 40 mg 11/28/18 10:00 11/28/18 11:06 Lasix - PO 40 mg DAILY [facility] Administration Ceftriaxone Sodium 2 gm/ 100 mls @ 200 mls/hr 11/28/18 10:00 11/28/18 13:10 Dextrose IVPB 200 mls/hr DAILY [facility] Administration Protocol Lactulose 20 gm 11/28/18 13:00 11/28/18 14:02 Cephulac (Oral Use) PO 20 gm BID [facility] Administration Magnesium Oxide 400 mg 11/27/18 22:00 11/28/18 11:07 Mag-Ox - PO 400 mg BID [facility] Administration Morphine Sulfate 2 mg 11/27/18 14:51 Morphine Injection - IVPUSH Q4H PRN Pain Level 8 - 10 BREAKTHROUGH Oxycodone HCl 5 mg 11/27/18 14:51 11/28/18 15:55 Roxicodone - PO 5 mg Q4H PRN Administration PAIN LEVEL 7-10 Potassium Chloride 40 meq 11/28/18 10:00 11/28/18 11:06 K-Dur - PO 40 meq DAILY [facility] Administration Simethicone 80 mg 11/27/18 14:51 Mylicon - PO Q4H PRN GAS Spironolactone 100 mg 11/28/18 10:00 11/28/18 11:06 Aldactone - PO 100 mg DAILY [facility] Administration ASSESSMENT AND PLAN: This is a 48 year old woman with a history of cirrhosis, chronic hepatitis C, alcohol abuse who presented to the ED with worsening abdominal distention and peripheral edema. 1. Infected right thigh hematoma with cellulitis - Continue ceftriaxone, vancomycin - s/p I&D 11/27 - continue to pack with iodoform daily 2. Cirrhosis with ascites, peripheral edema, portal hypertension, hypoalbuminemia - Continue Aldactone, Lasix, Lactulose 3. Anemia, thrombocytopenia - Chronic, secondary to cirrhosis - Stable 4. Hypomagnesemia - Improved 5. Hyponatremia - Secondary to cirrhosis - Stable 6. Chronic hepatitis C 7. History of alcohol abuse 8. Herpes labialis - Completed Acyclovir
--- NOTE | 2018-11-28 17:20 | PN ---
Progress Note, Physician History of Present Illness: 48yo F with multiple medical problems including hep C and alcoholic cirrhosis with ascites and portal hypertension with varices and thrombocytopenia. She had a right medial thigh fluid collection that got somewhat larger over the week, was painful and pointing. Yesterday, she was taken for complex I&D of the collection with findings of an infected hematoma, with mostly bloody drainage and some purulence. Culture swab has not grown anything yet. She is on abx per ID. She is seen and examined in bed, c/o pain but got medicine just about 45 mins ago for dressing change. She has been up briefly, but states she has been dizzy walking "because of anemia." She is eating ok. - Current Medication List Current Medications: Active Medications Acetaminophen (Tylenol -) 650 mg PO Q6H PRN PRN Reason: Pain Level 4 - 10 Last Admin: 11/28/18 15:55 Dose: 650 mg Docusate Sodium (Colace -) 100 mg PO BID PRN PRN Reason: CONSTIPATION Furosemide (Lasix -) 40 mg PO DAILY [facility] Last Admin: 11/28/18 11:06 Dose: 40 mg Ceftriaxone Sodium 2 gm/ (Dextrose) 100 mls @ 200 mls/hr IVPB DAILY [facility]; Protocol Last Admin: 11/28/18 13:10 Dose: 200 mls/hr Lactulose (Cephulac (Oral Use)) 20 gm PO BID [facility] Last Admin: 11/28/18 14:02 Dose: 20 gm Magnesium Oxide (Mag-Ox -) 400 mg PO BID [facility] Last Admin: 11/28/18 11:07 Dose: 400 mg Morphine Sulfate (Morphine Injection -) 2 mg IVPUSH Q4H PRN PRN Reason: Pain Level 8 - 10 BREAKTHROUGH Oxycodone HCl (Roxicodone -) 5 mg PO Q4H PRN PRN Reason: PAIN LEVEL 7-10 Last Admin: 11/28/18 15:55 Dose: 5 mg Potassium Chloride (K-Dur -) 40 meq PO DAILY [facility] Last Admin: 11/28/18 11:06 Dose: 40 meq Simethicone (Mylicon -) 80 mg PO Q4H PRN PRN Reason: GAS Spironolactone (Aldactone -) 100 mg PO DAILY [facility] Last Admin: 11/28/18 11:06 Dose: 100 mg - Objective Vital Signs: Vital Signs Temperature 98.5 F 01/09/19 14:32 Pulse Rate 81 11/28/18 14:32 Respiratory Rate 18 11/28/18 14:32 Blood Pressure 116/60 11/28/18 14:32 O2 Sat by Pulse Oximetry (%) 100 11/28/18 09:00 Constitutional: Yes: Well Nourished, No Distress, Calm Eyes: Yes: Conjunctiva Clear, EOM Intact HENT: Yes: Atraumatic, Normocephalic Musculoskeletal: No: Joint Stiffness, Joint Swelling Extremities: No: Cool, Cyanosis Integumentary: Yes: Bruising (scattered ecchymoses), Incision (right medial thigh, dressed). No: Jaundice, Rash Wound/Incision: Yes: Dressing Dry and Intact (but with serosang drainage), Dressing Removed (and changed - 1/2" iodoform packing replaced, covered with folded gauze and paper tape), Unapproximated (wound similar to OR measurements; cleaner and preparer, black and red interior from cauterization, no active bleeding, no residual purulence; locally indurated and tender, but less so, minimal to no erythema except at edges) Neurological: Yes: Alert, Oriented Labs: CBC, BMP 11/28/18 06:30 11/28/18 06:30 Problem List - Problems (1) Traumatic hematoma of thigh Assessment/Plan: POD1 s/p incision and drainage of right medial thigh infected hematoma pain meds prn - tylenol first line, oxy breakthrough f/u culture, continue abx encourage OOB as tolerated will need VNS arranged by SW/CM for daily packing changes on discharge 1/2" iodoform or plain packing to cavity daily, may shower or cleanse daily with packing/dressing out/off to be covered with gauze and paper tape (pt has skin sensitive to others) pt state insurance card is in her wallet with security she has family that can assist with dressings at home, but she seems hesitant about whether they will be comfortable with it will also f/u with me after discharge, timing depending on d/c date Code(s): S70.10XA - CONTUSION OF UNSPECIFIED THIGH, INITIAL ENCOUNTER Qualifiers: Encounter type: sequela Laterality: right Qualified Code(s): S70.11XS - Contusion of right thigh, sequela (2) Thrombocytopenia Code(s): D69.6 - THROMBOCYTOPENIA, UNSPECIFIED (3) Alcoholic cirrhosis of liver with ascites Code(s): K70.31 - ALCOHOLIC CIRRHOSIS OF LIVER WITH ASCITES (4) Hepatitis C Code(s): B19.20 - UNSPECIFIED VIRAL HEPATITIS C WITHOUT HEPATIC COMA Qualifiers: Viral hepatitis chronicity: chronic Hepatic coma status: without hepatic coma Qualified Code(s): B18.2 - Chronic viral hepatitis C
[2018-11-29] MEDS ORDERED: diphenhydrAMINE HCL 25 MG CAPSULE (FP) PO ONE (01:51)
[2018-11-29] MEDS: MORPHINE SULFATE 2 MG/ML VIAL IVPUSH PRN (02:01)
[2018-11-29] MEDS: oxyCODONE HCL 5 MG TABLET PO PRN ×3 (06:24→21:15)
[2018-11-29 07:07] LABS: HEMATOCRIT 27.9 % (32.4-45.2); HEMOGLOBIN 9.5 GM/dL (10.7-15.3); MCH 36.9 pg (25.7-33.7); MCHC 34.2 g/dl (32.0-36.0); PLATELET COUNT 107 K/MM3 (134-434); RBC 2.58 M/mm3 (3.60-5.2); WHITE BLOOD COUNT 3.4 K/mm3 (4.0-10.0)
[2018-11-29 07:46] LABS: ALBUMIN 1.7 g/dl (3.4-5.0); ALK PHOS 191 U/L (45-117); ANION GAP 7 MMOL/L (8-16); BILIRUBIN,TOTAL 1.4 mg/dL (0.2-1); BLOOD UREA NITROGEN 17 mg/dL (7-18); CALCIUM 7.4 mg/dL (8.5-10.1); CHLORIDE 100 mmol/L (98-107); CO2 25 mmol/L (21-32); CREATININE 0.8 mg/dL (0.55-1.3); GLUCOSE,RANDOM 101 mg/dL (74-106); POTASSIUM 4.6 mmol/L (3.5-5.1); SGOT/AST 70 U/L (15-37); SGPT/ALT 32 U/L (13-61); SODIUM 132 mmol/L (136-145); TOT PROT 6.4 g/dl (6.4-8.2)
[2018-11-29] MEDS ORDERED: DEXTROSE 5%-WATER 100 ML IVPB ONE (09:44)
[2018-11-29] MEDS: CEFTRIAXONE 2 GM in DEXTROSE 5%-WATER 100 ML IVPB SCH (10:54)
[2018-11-29] MEDS: POTASSIUM CHLORIDE TABS 20 MEQ TABLET.ER (FP) PO SCH (10:54)
[2018-11-29] MEDS: MAGNESIUM OXIDE 400 MG TABLET (FP) PO SCH ×2 (10:55→21:10)
[2018-11-29] MEDS: FUROSEMIDE 40 MG TABLET (FP) PO SCH (10:55)
[2018-11-29] MEDS: LACTULOSE 20 GM/30 ML UDC (FOR ORAL USE ONLY) PO SCH ×2 (10:55→21:10)
[2018-11-29] MEDS: SPIRONOLACTONE 25 MG TABLET (FP) PO SCH (10:55)
[2018-11-29] MEDS: diphenhydrAMINE HCL 25 MG CAPSULE (FP) PO PRN (14:49)
--- NOTE | 2018-11-29 15:45 | PN ---
Progress Note, Physician History of Present Illness: stable wound cx noted wound seen clean - Current Medication List Current Medications: Active Medications Acetaminophen (Tylenol -) 650 mg PO Q6H PRN PRN Reason: Pain Level 4 - 10 Last Admin: 11/28/18 15:55 Dose: 650 mg Diphenhydramine HCl (Benadryl -) 25 mg PO DAILY PRN PRN Reason: FOR ITCHING Last Admin: 11/29/18 14:49 Dose: 25 mg Docusate Sodium (Colace -) 100 mg PO BID PRN PRN Reason: CONSTIPATION Furosemide (Lasix -) 40 mg PO DAILY [facility] Last Admin: 11/29/18 10:55 Dose: 40 mg Ceftriaxone Sodium 2 gm/ (Dextrose) 100 mls @ 200 mls/hr IVPB DAILY [facility]; Protocol Last Admin: 11/29/18 10:54 Dose: 200 mls/hr Lactulose (Cephulac (Oral Use)) 20 gm PO BID [facility] Last Admin: 11/29/18 10:55 Dose: 20 gm Magnesium Oxide (Mag-Ox -) 400 mg PO BID [facility] Last Admin: 11/29/18 10:55 Dose: 400 mg Morphine Sulfate (Morphine Sulfate) 2 mg IVPUSH Q4H PRN PRN Reason: Pain Level 8 - 10 BREAKTHROUGH Last Admin: 11/29/18 02:01 Dose: 2 mg Oxycodone HCl (Roxicodone -) 5 mg PO Q4H PRN PRN Reason: PAIN LEVEL 7-10 Last Admin: 11/29/18 14:49 Dose: 5 mg Potassium Chloride (K-Dur -) 40 meq PO DAILY [facility] Last Admin: 11/29/18 10:54 Dose: 40 meq Simethicone (Mylicon -) 80 mg PO Q4H PRN PRN Reason: GAS Spironolactone (Aldactone -) 100 mg PO DAILY [facility] Last Admin: 11/29/18 10:55 Dose: 100 mg - Objective Vital Signs: Vital Signs Temperature 98.7 F 11/29/18 14:36 Pulse Rate 89 11/29/18 14:36 Respiratory Rate 18 11/29/18 14:36 Blood Pressure 128/76 11/29/18 14:36 O2 Sat by Pulse Oximetry (%) 99 11/29/18 09:00 Constitutional: Yes: No Distress, Calm Cardiovascular: Yes: Regular Rate and Rhythm Respiratory: Yes: Regular, CTA Bilaterally Gastrointestinal: Yes: Normal Bowel Sounds, Soft Musculoskeletal: Yes: WNL Extremities: Yes: Other Wound/Incision: Yes: Dressing Dry and Intact Neurological: Yes: Alert, Oriented Psychiatric: Yes: Alert, Oriented Labs: CBC, BMP 11/29/18 06:30 11/29/18 06:30 INR, PTT INR 1.26 (0.83-1.09) H 11/26/18 12:05 Assessment/Plan Patient is a 48 year old female with history of cirrhosis secondary to alcohol abuse, hepatitis C, presents with complaint of diffuse abdominal and lower extremity swelling. ascites cellulitis of the left lower ext b/l swelling of the leg etoh abuse transaminitis plan cx result noted abx changed to doxy awaiting sensitivities rest as per the team wound care
--- NOTE | 2018-11-29 16:12 | PN ---
Progress Note, Physician History of Present Illness: 48yo F with multiple medical problems including hep C and alcoholic cirrhosis with ascites and portal hypertension with varices and thrombocytopenia. She had a right medial thigh fluid collection that got somewhat larger over the week, was painful and pointing. She was taken for complex I&D of the collection with findings of an infected hematoma, with mostly bloody drainage and some purulence. Culture broth is growing presumptive MRSA. ID changed today to po Doxy. She is seen and examined in bed, just ambulated to bathroom, c/o pain when medicine wears off. Dressing is changed with nurse and Dr. Bardales present. She complains of whole-body itching. - Current Medication List Current Medications: Active Medications Acetaminophen (Tylenol -) 650 mg PO Q6H PRN PRN Reason: Pain Level 4 - 10 Last Admin: 11/28/18 15:55 Dose: 650 mg Diphenhydramine HCl (Benadryl -) 25 mg PO DAILY PRN PRN Reason: FOR ITCHING Last Admin: 11/29/18 14:49 Dose: 25 mg Docusate Sodium (Colace -) 100 mg PO BID PRN PRN Reason: CONSTIPATION Doxycycline Hyclate (Vibramycin -) 100 mg PO BID@1000,1800 [facility] Furosemide (Lasix -) 40 mg PO DAILY [facility] Last Admin: 11/29/18 10:55 Dose: 40 mg Lactulose (Cephulac (Oral Use)) 20 gm PO BID [facility] Last Admin: 11/29/18 10:55 Dose: 20 gm Magnesium Oxide (Mag-Ox -) 400 mg PO BID [facility] Last Admin: 11/29/18 10:55 Dose: 400 mg Morphine Sulfate (Morphine Sulfate) 2 mg IVPUSH Q4H PRN PRN Reason: Pain Level 8 - 10 BREAKTHROUGH Last Admin: 11/29/18 02:01 Dose: 2 mg Oxycodone HCl (Roxicodone -) 5 mg PO Q4H PRN PRN Reason: PAIN LEVEL 7-10 Last Admin: 11/29/18 14:49 Dose: 5 mg Potassium Chloride (K-Dur -) 40 meq PO DAILY [facility] Last Admin: 11/29/18 10:54 Dose: 40 meq Simethicone (Mylicon -) 80 mg PO Q4H PRN PRN Reason: GAS Spironolactone (Aldactone -) 100 mg PO DAILY [facility] Last Admin: 11/29/18 10:55 Dose: 100 mg - Objective Vital Signs: Vital Signs Temperature 98.7 F 11/29/18 14:36 Pulse Rate 89 11/29/18 14:36 Respiratory Rate 18 11/29/18 14:36 Blood Pressure 128/76 11/29/18 14:36 O2 Sat by Pulse Oximetry (%) 99 11/29/18 09:00 Constitutional: Yes: Well Nourished, No Distress, Calm Eyes: Yes: Conjunctiva Clear, EOM Intact. No: Sclera Icterus HENT: Yes: Atraumatic, Normocephalic Musculoskeletal: No: Joint Stiffness, Joint Swelling Extremities: No: Cool, Cyanosis Integumentary: Yes: Incision (right medial thigh, dressed). No: Jaundice, Rash Wound/Incision: Yes: Dressing Dry and Intact (with small amount of strikethrough on dressing, serosang), Dressing Removed (and changed - packing removed, repacked gently with 1/2" iodoform, covered with folded 4x4 and paper tape), Reddened (local at wound margins only, no sig surrounding erythema), Unapproximated (wound base black/dark from OR cautery mostly, little red visible , clean). No: Draining (minimal serosang on gauze), Bleeding Neurological: Yes: Alert, Oriented. No: Unsteady Gait Labs: CBC, BMP 11/29/18 06:30 11/29/18 06:30 Problem List - Problems (1) Traumatic hematoma of thigh Assessment/Plan: POD2 s/p incision and drainage of right medial thigh infected hematoma pain meds prn - tylenol first line, oxy breakthrough culture with MRSA doxycycline po per ID wound is clean, not granulating yet encourage OOB as tolerated per SW/CM, pt with emergency medicaid, not eligible for VNS on discharge explained to patient that she and/or family will need to learn how to care for wound and pack daily prior to discharge she says a family member can be here tomorrow ~5pm seen and discussed with Dr. Bardales 1/2" iodoform ribbon replaced in cavity will switch to saline-dampened gauze tomorrow for teaching (single 4x4 should be appropriate size) to be covered with folded dry 4x4 gauze and paper tape (pt has skin sensitive to others) NO damp gauze outside wound/on intact skin dressing to be changed daily, can shower with dressing OFF/packing OUT just before it is to be redone at home pain meds will need to be Rx by medical team NO refills available from surgery after discharge should also f/u with a PMD (she doesn't know who she has seen, says Dr. Romeo referred to one in past) will also f/u with me after discharge, timing depending on d/c date Code(s): S70.10XA - CONTUSION OF UNSPECIFIED THIGH, INITIAL ENCOUNTER Qualifiers: Encounter type: sequela Laterality: right Qualified Code(s): S70.11XS - Contusion of right thigh, sequela (2) Thrombocytopenia Code(s): D69.6 - THROMBOCYTOPENIA, UNSPECIFIED (3) Alcoholic cirrhosis of liver with ascites Code(s): K70.31 - ALCOHOLIC CIRRHOSIS OF LIVER WITH ASCITES (4) Hepatitis C Code(s): B19.20 - UNSPECIFIED VIRAL HEPATITIS C WITHOUT HEPATIC COMA Qualifiers: Viral hepatitis chronicity: chronic Hepatic coma status: without hepatic coma Qualified Code(s): B18.2 - Chronic viral hepatitis C (5) Hyperbilirubinemia Code(s): E80.6 - OTHER DISORDERS OF BILIRUBIN METABOLISM
--- NOTE | 2018-11-29 18:00 | PN ---
Physical Exam: SUBJECTIVE: Patient seen and examined at bedside this morning. She is POD #2 s/ p incision and drainage of right lower extremity. She has remained afebrile overnight. She endorses pain at right lower extremity surgical site that is temporarily palliated with Oxycodone. OBJECTIVE: Vital Signs Period Temp Pulse Resp BP Sys/Mittal Pulse Ox Last 24 Hr 98.3 F-98.7 F 81-89 18-18 119-128/66-80 99-99 GENERAL: Awake, alert, and fully oriented, in no acute distress. HEAD: Normal with no signs of trauma. EYES: Pupils equal, round and reactive to light, extraocular movements intact, sclera anicteric. EARS, NOSE, THROAT: Oropharynx clear without exudates. Moist mucous membranes. NECK: Supple without lymphadenopathy. LUNGS: Breath sounds equal, clear to auscultation bilaterally. No wheezes, and no crackles. No accessory muscle use. HEART: Regular rate and rhythm, normal S1 and S2 without murmur, rub or gallop. ABDOMEN: Distended. Diffusely tender to palpation X4 quadrants. Tympanic to percussion X 4 quadrants. Hypoactive bowel sounds X4 quadrants. No guarding, no rebound tenderness. Two vertical scars noted from prior surgeries. Healed, clean dry. UPPER EXTREMITIES: 2+ radial pulses b/l, warm, well-perfused. LOWER EXTREMITIES: 1+ dorsalis pedis pulses b/l. Right lower extremity indurated and tender to palpation. Trace pitting edema B/L lower extremities. Right lower extremity surgical site packed, and bandaged clean, dry, without bleeding or discharge. NEUROLOGICAL: Cranial nerves II-XII intact. Normal speech. PSYCHIATRIC: Cooperative. Appropriate mood and affect Laboratory Results - last 24 hr 11/29/18 11/29/18 06:30 06:30 WBC 3.4 L RBC 2.58 L Hgb 9.5 L Hct 27.9 L MCV 108.0 H MCH 36.9 H MCHC 34.2 RDW 15.0 Plt Count 107 L MPV 7.0 L Sodium 132 L Potassium 4.6 Chloride 100 Carbon Dioxide 25 Anion Gap 7 L BUN 17 Creatinine 0.8 Creat Clearance w eGFR > 60 Random Glucose 101 Calcium 7.4 L Total Bilirubin 1.4 H AST 70 H ALT 32 Alkaline Phosphatase 191 H Total Protein 6.4 Albumin 1.7 L Active Medications Generic Name Dose Route Start Last Admin Trade Name Freq PRN Reason Stop Dose Admin Acetaminophen 650 mg 11/27/18 14:51 11/28/18 15:55 Tylenol - PO 650 mg Q6H PRN Administration Pain Level 4 - 10 Diphenhydramine HCl 25 mg 11/29/18 13:28 11/29/18 14:49 Benadryl - PO 25 mg DAILY PRN Administration FOR ITCHING Docusate Sodium 100 mg 11/27/18 14:51 Colace - PO BID PRN CONSTIPATION Doxycycline Hyclate 100 mg 11/29/18 18:00 Vibramycin - PO BID@1000,1800 [facility] Furosemide 40 mg 11/28/18 10:00 11/29/18 10:55 Lasix - PO 40 mg DAILY [facility] Administration Lactulose 20 gm 11/28/18 13:00 11/29/18 10:55 Cephulac (Oral Use) PO 20 gm BID [facility] Administration Magnesium Oxide 400 mg 11/27/18 22:00 11/29/18 10:55 Mag-Ox - PO 400 mg BID [facility] Administration Morphine Sulfate 2 mg 11/28/18 21:25 11/29/18 02:01 Morphine Sulfate IVPUSH 2 mg Q4H PRN Administration Pain Level 8 - 10 BREAKTHROUGH Oxycodone HCl 5 mg 11/27/18 14:51 11/29/18 14:49 Roxicodone - PO 5 mg Q4H PRN Administration PAIN LEVEL 7-10 Potassium Chloride 40 meq 11/28/18 10:00 11/29/18 10:54 K-Dur - PO 40 meq DAILY [facility] Administration Simethicone 80 mg 11/27/18 14:51 Mylicon - PO Q4H PRN GAS Spironolactone 100 mg 11/28/18 10:00 11/29/18 10:55 Aldactone - PO 100 mg DAILY [facility] Administration IMAGING -CT lower extremity shows ascites and extensive subucateous edema without discrete fluid collection suggestive of abscess/ hematoma. -Repeat CT lower extremity shows subcutaneous fluid collection suspicious for abscess. -Duplex US B/L lower extremities negative for DVT -US soft tissue shows fluid collection, possibly suggestive of abscess formation. ASSESSMENT/PLAN: Patient is a 48 year old female with history of cirrhosis secondary to alcohol abuse, hepatitis C, presents with complaint of diffuse abdominal and lower extremity swelling. Ascites -S/P paracentesis (11/09) with 5500cc serous fluid removed. F/U serology, and microbiology. -Spironolactone 100mg PO daily -Lasix 40mg PO daily -Lactulose 20grams PO BID- patient counselled she should be having 2-3 soft bowel movements daily. -GI consult (Dr. Romeo) appreciated. Considering history of elevated CA 19-[address] abdomen pelvis ordered. -Hepatic cirrhosis, portal hypertension, extensive varices. Gastric antral thickening noted. Scattered diverticula without diverticulitis. Lower extremity swelling -POD #2 s/p incision and drainage of right lower extremity. Drained 30cc of blood, with purulence. -Wound cultures grow presumptive MRSA -Begin Doxycycline 100mg PO BID -Patient completed 12 days Rocephin 2grams IV daily -Pain control with Tylenol 650mg PO Q6H PRN for pain 1-5 -Oxycodone 5mg PO Q8H PRN for pain 6 -10 -Surgical consult (Dr. Eneida Hines) appreciated. -ID consult (Dr. Bardales) appreciated. History of ETOH abuse -Patient states last drink was 6 months ago. Currently not in withdrawal. -Counselled patient regarding importance of alcohol abstinence. -Monitor closely for withdrawal Transaminitis -Labs not significantly different from prior studies. Likely chronic. -Trend CMP Hyponatremia -Stable. Likely secondary to volume overload. -Monitor CMP closely. Oral HSV -Completed 5 day course Acyclovir 400mg. FEN -No IV fluids -Follow CMP -Sodium controlled diet Prophylaxis -Heparin 5000u subq TID Disposition -Continue care in medical-surgical floor Fall precautions Visit type - Emergency Visit Emergency Visit: Yes ED Registration Date: 11/16/18 Care time: The patient presented to the Emergency Department on the above date and was hospitalized for further evaluation of their emergent condition. - New Patient This patient is new to me today: No - Critical Care Critical Care patient: No - Discharge Referral Referred to [facility] No
--- NOTE | 2018-11-29 18:06 | PN ---
Teaching Attending Note Name of Resident: Horace Maurice ATTENDING PHYSICIAN STATEMENT I saw and evaluated the patient. I reviewed the resident's note and discussed the case with the resident. I agree with the resident's findings and plan as documented. SUBJECTIVE: Patient has no complaints. Right thigh pain is controlled. OBJECTIVE: Vital Signs Period Temp Pulse Resp BP Sys/Mittal Pulse Ox Last 24 Hr 98.3 F-98.7 F 81-89 18-18 119-128/66-80 99-99 HEART: S1S2, RRR LUNGS: Clear ABDOMEN: Soft, mildly distended, non-tender, normal BS EXTREMITIES: Trace edema. Right medial thigh wound is packed and dressed Laboratory Results - last 24 hr 11/29/18 11/29/18 06:30 06:30 WBC 3.4 L RBC 2.58 L Hgb 9.5 L Hct 27.9 L MCV 108.0 H MCH 36.9 H MCHC 34.2 RDW 15.0 Plt Count 107 L MPV 7.0 L Sodium 132 L Potassium 4.6 Chloride 100 Carbon Dioxide 25 Anion Gap 7 L BUN 17 Creatinine 0.8 Creat Clearance w eGFR > 60 Random Glucose 101 Calcium 7.4 L Total Bilirubin 1.4 H AST 70 H ALT 32 Alkaline Phosphatase 191 H Total Protein 6.4 Albumin 1.7 L Current Medications Generic Name Dose Route Start Last Admin Trade Name Freq PRN Reason Stop Dose Admin Acetaminophen 650 mg 11/27/18 14:51 11/28/18 15:55 Tylenol - PO 650 mg Q6H PRN Administration Pain Level 4 - 10 Diphenhydramine HCl 25 mg 11/29/18 13:28 11/29/18 14:49 Benadryl - PO 25 mg DAILY PRN Administration FOR ITCHING Docusate Sodium 100 mg 11/27/18 14:51 Colace - PO BID PRN CONSTIPATION Doxycycline Hyclate 100 mg 11/29/18 18:00 Vibramycin - PO BID@1000,1800 [facility] Furosemide 40 mg 11/28/18 10:00 11/29/18 10:55 Lasix - PO 40 mg DAILY [facility] Administration Lactulose 20 gm 11/28/18 13:00 11/29/18 10:55 Cephulac (Oral Use) PO 20 gm BID [facility] Administration Magnesium Oxide 400 mg 11/27/18 22:00 11/29/18 10:55 Mag-Ox - PO 400 mg BID [facility] Administration Morphine Sulfate 2 mg 11/28/18 21:25 11/29/18 02:01 Morphine Sulfate IVPUSH 2 mg Q4H PRN Administration Pain Level 8 - 10 BREAKTHROUGH Oxycodone HCl 5 mg 11/27/18 14:51 11/29/18 14:49 Roxicodone - PO 5 mg Q4H PRN Administration PAIN LEVEL 7-10 Potassium Chloride 40 meq 11/28/18 10:00 11/29/18 10:54 K-Dur - PO 40 meq DAILY [facility] Administration Simethicone 80 mg 11/27/18 14:51 Mylicon - PO Q4H PRN GAS Spironolactone 100 mg 11/28/18 10:00 11/29/18 10:55 Aldactone - PO 100 mg DAILY [facility] Administration ASSESSMENT AND PLAN: This is a 48 year old woman with a history of cirrhosis, chronic hepatitis C, alcohol abuse who presented to the ED with worsening abdominal distention and peripheral edema. 1. Infected right thigh hematoma with cellulitis - Ceftriaxone, vancomycin discontinued and doxycycline started - s/p I&D 11/27 - continue to pack with iodoform daily 2. Cirrhosis with ascites, peripheral edema, portal hypertension, hypoalbuminemia - s/p paracentesis 11/09 - 5500 cc fluid drained - Continue Aldactone, Lasix, Lactulose 3. Anemia, thrombocytopenia - Chronic, secondary to cirrhosis - Stable 4. Hypomagnesemia - Improved 5. Hyponatremia - Secondary to cirrhosis - Stable 6. Chronic hepatitis C 7. History of alcohol abuse 8. Herpes labialis - Completed Acyclovir
[2018-11-29] MEDS: DOXYCYCLINE HYCLATE 100 MG CAPSULE PO SCH (18:16)
[2018-11-30] MEDS: MORPHINE SULFATE 2 MG/ML VIAL IVPUSH PRN ×2 (00:08→11:29)
[2018-11-30] MEDS: oxyCODONE HCL 5 MG TABLET PO PRN ×3 (04:12→21:06)
--- NOTE | 2018-11-30 07:48 | PN ---
GI Progress Note Subjective: Patient complain of increasing episodes of gas. Denies abdominal pain, nausea, vomiting. - Objective Vital Signs: Vital Signs Temperature 98 F 11/30/18 06:00 Pulse Rate 88 11/30/18 06:00 Respiratory Rate 18 11/30/18 06:00 Blood Pressure 130/78 11/30/18 06:00 O2 Sat by Pulse Oximetry (%) 99 11/29/18 21:00 Constitutional: Well Nourished, No Distress, Calm Eyes: Yes: Conjunctiva Clear Cardiovascular: Yes: Regular Rate and Rhythm Respiratory: Yes: Regular, CTA Bilaterally Gastrointestinal Inspection: Yes: Ascites ...Auscultate: Yes: Normoactive Bowel Sounds ...Palpate: Yes: Soft ...Percussion: Yes: Other (high tympany) Edema: No Wound/Incision: Yes: Dressing Dry and Intact (R inner thigh) Neurological: Yes: Alert Labs: INR, PTT INR 1.26 (0.83-1.09) H 11/26/18 12:05 Problem List - Problems (1) Hepatic cirrhosis due to chronic hepatitis C infection Code(s): B18.2 - CHRONIC VIRAL HEPATITIS C; K74.60 - UNSPECIFIED CIRRHOSIS OF LIVER
[2018-11-30 07:56] LABS: HEMATOCRIT 27.5 % (32.4-45.2); HEMOGLOBIN 9.5 GM/dL (10.7-15.3); MCH 37.5 pg (25.7-33.7); MCHC 34.4 g/dl (32.0-36.0); MEAN CELL VOLUME 108.9 fl (80-96); MEAN PLT VOLUME 6.8 fl (7.5-11.1); PLATELET COUNT 103 K/MM3 (134-434); RBC 2.53 M/mm3 (3.60-5.2); WHITE BLOOD COUNT 3.5 K/mm3 (4.0-10.0)
[2018-11-30 08:19] LABS: ALBUMIN 1.7 g/dl (3.4-5.0); ALK PHOS 170 U/L (45-117); ANION GAP 5 MMOL/L (8-16); BILIRUBIN,TOTAL 1.9 mg/dL (0.2-1); BLOOD UREA NITROGEN 18 mg/dL (7-18); CALCIUM 7.2 mg/dL (8.5-10.1); CHLORIDE 99 mmol/L (98-107); CO2 25 mmol/L (21-32); CREATININE 0.7 mg/dL (0.55-1.3); GLUCOSE,RANDOM 91 mg/dL (74-106); SGOT/AST 70 U/L (15-37); SGPT/ALT 33 U/L (13-61); SODIUM 130 mmol/L (136-145); TOT PROT 6.6 g/dl (6.4-8.2)
[2018-11-30] MEDS: diphenhydrAMINE HCL 25 MG CAPSULE (FP) PO PRN (10:49)
[2018-11-30] MEDS: DOXYCYCLINE HYCLATE 100 MG CAPSULE PO SCH ×3 (10:49→17:57)
[2018-11-30] MEDS: FUROSEMIDE 40 MG TABLET (FP) PO SCH (10:49)
[2018-11-30] MEDS: LACTULOSE 20 GM/30 ML UDC (FOR ORAL USE ONLY) PO SCH ×2 (10:49→21:06)
[2018-11-30] MEDS: POTASSIUM CHLORIDE TABS 20 MEQ TABLET.ER (FP) PO SCH (10:49)
[2018-11-30] MEDS: SPIRONOLACTONE 25 MG TABLET (FP) PO SCH (10:49)
[2018-11-30] MEDS: MAGNESIUM OXIDE 400 MG TABLET (FP) PO SCH ×2 (10:49→21:06)
--- NOTE | 2018-11-30 12:28 | PN ---
Progress Note, Physician History of Present Illness: complains of abd distension no other issues - Current Medication List Current Medications: Active Medications Acetaminophen (Tylenol -) 650 mg PO Q6H PRN PRN Reason: Pain Level 4 - 10 Last Admin: 11/28/18 15:55 Dose: 650 mg Diphenhydramine HCl (Benadryl -) 25 mg PO DAILY PRN PRN Reason: FOR ITCHING Last Admin: 11/30/18 10:49 Dose: 25 mg Docusate Sodium (Colace -) 100 mg PO BID PRN PRN Reason: CONSTIPATION Doxycycline Hyclate (Vibramycin -) 100 mg PO BID@1000,1800 [facility] Last Admin: 11/30/18 10:49 Dose: 100 mg Furosemide (Lasix -) 20 mg PO DAILY [facility] Lactulose (Cephulac (Oral Use)) 20 gm PO BID [facility] Last Admin: 11/30/18 10:49 Dose: 20 gm Magnesium Oxide (Mag-Ox -) 400 mg PO BID [facility] Last Admin: 11/30/18 10:49 Dose: 400 mg Morphine Sulfate (Morphine Sulfate) 2 mg IVPUSH Q4H PRN PRN Reason: Pain Level 8 - 10 BREAKTHROUGH Last Admin: 11/30/18 11:29 Dose: 2 mg Oxycodone HCl (Roxicodone -) 5 mg PO Q4H PRN PRN Reason: PAIN LEVEL 7-10 Last Admin: 11/30/18 04:12 Dose: 5 mg Potassium Chloride (K-Dur -) 40 meq PO DAILY [facility] Last Admin: 11/30/18 10:49 Dose: 40 meq Simethicone (Mylicon -) 80 mg PO Q4H PRN PRN Reason: GAS Spironolactone (Aldactone -) 100 mg PO DAILY [facility] Last Admin: 11/30/18 10:49 Dose: 100 mg - Objective Vital Signs: Vital Signs Temperature 98 F 11/30/18 06:00 Pulse Rate 88 11/30/18 06:00 Respiratory Rate 18 11/30/18 06:00 Blood Pressure 130/78 11/30/18 06:00 O2 Sat by Pulse Oximetry (%) 99 11/29/18 21:00 Constitutional: Yes: No Distress, Calm Neck: Yes: Supple, Trachea Midline Cardiovascular: Yes: Regular Rate and Rhythm Respiratory: Yes: Regular, CTA Bilaterally Gastrointestinal: Yes: Soft, Tenderness Musculoskeletal: Yes: WNL Extremities: Yes: Other Neurological: Yes: Alert, Oriented Psychiatric: Yes: Alert, Oriented Labs: CBC, BMP 11/30/18 06:30 11/30/18 06:30 INR, PTT INR 1.26 (0.83-1.09) H 11/26/18 12:05 Assessment/Plan Patient is a 48 year old female with history of cirrhosis secondary to alcohol abuse, hepatitis C, presents with complaint of diffuse abdominal and lower extremity swelling. ascites cellulitis of the left lower ext b/l swelling of the leg etoh abuse transaminitis plan continue doxy wound care rest as per the team patient stable
--- NOTE | 2018-11-30 13:00 | PN ---
Teaching Attending Note Name of Resident: Horace Maurice ATTENDING PHYSICIAN STATEMENT I saw and evaluated the patient. I reviewed the resident's note and discussed the case with the resident. I agree with the resident's findings and plan as documented. SUBJECTIVE: Patient has no complaints. OBJECTIVE: Vital Signs Period Temp Pulse Resp BP Sys/Mittal Pulse Ox Last 24 Hr 98 F-98.7 F 88-94 18-18 124-130/76-78 99 HEART: S1S2, RRR LUNGS: Clear ABDOMEN: Soft, mildly distended, non-tender, normal BS EXTREMITIES: Trace edema. Right medial thigh wound is packed and dressed Laboratory Results - last 24 hr 11/30/18 11/30/18 06:30 06:30 WBC 3.5 L RBC 2.53 L Hgb 9.5 L Hct 27.5 L MCV 108.9 H MCH 37.5 H MCHC 34.4 RDW 15.0 Plt Count 103 L MPV 6.8 L Sodium 130 L Potassium 5.0 Chloride 99 Carbon Dioxide 25 Anion Gap 5 L BUN 18 Creatinine 0.7 Creat Clearance w eGFR > 60 Random Glucose 91 Calcium 7.2 L Total Bilirubin 1.9 H AST 70 H ALT 33 Alkaline Phosphatase 170 H Total Protein 6.6 Albumin 1.7 L Current Medications Generic Name Dose Route Start Last Admin Trade Name Freq PRN Reason Stop Dose Admin Acetaminophen 650 mg 11/27/18 14:51 11/28/18 15:55 Tylenol - PO 650 mg Q6H PRN Administration Pain Level 4 - 10 Diphenhydramine HCl 25 mg 11/29/18 13:28 11/30/18 10:49 Benadryl - PO 25 mg DAILY PRN Administration FOR ITCHING Docusate Sodium 100 mg 11/27/18 14:51 Colace - PO BID PRN CONSTIPATION Doxycycline Hyclate 100 mg 11/29/18 18:00 11/30/18 10:49 Vibramycin - PO 100 mg BID@1000,1800 [facility] Administration Furosemide 20 mg 12/01/18 10:00 Lasix - PO DAILY [facility] Lactulose 20 gm 11/28/18 13:00 11/30/18 10:49 Cephulac (Oral Use) PO 20 gm BID [facility] Administration Magnesium Oxide 400 mg 11/27/18 22:00 11/30/18 10:49 Mag-Ox - PO 400 mg BID [facility] Administration Morphine Sulfate 2 mg 11/28/18 21:25 11/30/18 11:29 Morphine Sulfate IVPUSH 2 mg Q4H PRN Administration Pain Level 8 - 10 BREAKTHROUGH Oxycodone HCl 5 mg 11/27/18 14:51 11/30/18 04:12 Roxicodone - PO 5 mg Q4H PRN Administration PAIN LEVEL 7-10 Potassium Chloride 40 meq 11/28/18 10:00 11/30/18 10:49 K-Dur - PO 40 meq DAILY [facility] Administration Simethicone 80 mg 11/27/18 14:51 Mylicon - PO Q4H PRN GAS Spironolactone 100 mg 11/28/18 10:00 11/30/18 10:49 Aldactone - PO 100 mg DAILY [facility] Administration ASSESSMENT AND PLAN: This is a 48 year old woman with a history of cirrhosis, chronic hepatitis C, alcohol abuse who presented to the ED with worsening abdominal distention and peripheral edema. 1. Infected right thigh hematoma with cellulitis - s/p I&D 11/27 - Culture growing MRSA - Continue Doxycycline - Continue to pack with iodoform daily 2. Cirrhosis with ascites, peripheral edema, portal hypertension, hypoalbuminemia - s/p paracentesis 11/09 - 5500 cc fluid drained - Continue Aldactone, Lasix, Lactulose 3. Anemia, thrombocytopenia - Chronic, secondary to cirrhosis - Stable 4. Hypomagnesemia - Improved 5. Hyponatremia - Secondary to cirrhosis - Stable 6. Chronic hepatitis C 7. History of alcohol abuse 8. Herpes labialis - Completed Acyclovir 9. Disposition - Discharge home once family demonstrates ability to do dressing change
[2018-11-30] MEDS ORDERED: hydrOXYzine PAMOATE 25 MG CAPSULE (FP) PO ONE (15:51)
[2018-11-30] MEDS: ACETAMINOPHEN 325 MG TABLET (FP) PO PRN (16:48)
[2018-11-30 16:58] VITALS: BMI 30.5
--- NOTE | 2018-11-30 17:53 | PN ---
Progress Note, Physician History of Present Illness: 48yo F with multiple medical problems including hep C and alcoholic cirrhosis with ascites and portal hypertension with varices and thrombocytopenia. She had a right medial thigh fluid collection that got somewhat larger over the week, was painful and pointing. She was taken for complex I&D of the collection with findings of an infected hematoma, with mostly bloody drainage and some purulence. Culture broth is growing MRSA. Per ID on po Doxy. She is seen and examined in bed, family present, c/o pain in leg when nurse changed dressing earlier today. Dressing is changed now with her daughter to demonstrate technique, and all questions answered. - Current Medication List Current Medications: Active Medications Acetaminophen (Tylenol -) 650 mg PO Q6H PRN PRN Reason: Pain Level 4 - 10 Last Admin: 11/30/18 16:48 Dose: 650 mg Docusate Sodium (Colace -) 100 mg PO BID PRN PRN Reason: CONSTIPATION Doxycycline Hyclate (Vibramycin -) 100 mg PO BID@1000,1800 [facility] Last Admin: 11/30/18 16:47 Dose: 100 mg Furosemide (Lasix -) 20 mg PO DAILY [facility] Lactulose (Cephulac (Oral Use)) 20 gm PO BID [facility] Last Admin: 11/30/18 10:49 Dose: 20 gm Magnesium Oxide (Mag-Ox -) 400 mg PO BID [facility] Last Admin: 11/30/18 10:49 Dose: 400 mg Oxycodone HCl (Roxicodone -) 5 mg PO Q4H PRN PRN Reason: PAIN LEVEL 7-10 Last Admin: 11/30/18 16:46 Dose: 5 mg Potassium Chloride (K-Dur -) 40 meq PO DAILY [facility] Last Admin: 11/30/18 10:49 Dose: 40 meq Simethicone (Mylicon -) 80 mg PO Q4H PRN PRN Reason: GAS Spironolactone (Aldactone -) 100 mg PO DAILY [facility] Last Admin: 11/30/18 10:49 Dose: 100 mg - Objective Vital Signs: Vital Signs Temperature 98.2 F 11/30/18 17:15 Pulse Rate 79 11/30/18 17:15 Respiratory Rate 20 11/30/18 17:15 Blood Pressure 113/68 11/30/18 17:15 O2 Sat by Pulse Oximetry (%) 99 11/30/18 09:00 Constitutional: Yes: Well Nourished, No Distress, Calm Eyes: Yes: Conjunctiva Clear, EOM Intact. No: Sclera Icterus HENT: Yes: Atraumatic, Normocephalic Gastrointestinal: Yes: Soft, Ascites, Distention Musculoskeletal: No: Joint Stiffness, Joint Swelling Extremities: No: Cool, Cyanosis Integumentary: Yes: Bruising (scattered), Incision (right medial thigh, dressed) . No: Jaundice Wound/Incision: Yes: Dressing Dry and Intact, Dressing Removed (and changed - saline-damp gauze packed into wound, covered with gauze and paper tape), Reddened (minimal at margins, skin no longer elevated), Unapproximated (wound base black with red in places, still with some cautery artifact to slough, clean overall). No: Draining (scant serosang on dressing) Neurological: Yes: Alert, Oriented Labs: CBC, BMP 11/30/18 06:30 11/30/18 06:30 Microbiology 11/27/18 14:15 Gram Stain - Final Body Fluid - Other Body Fluid Culture - Final Mr S Aureus Anaerobic Culture - Final NO ANAEROBES WERE ISOLATED sensitive to tetracycline Problem List - Problems (1) Traumatic hematoma of thigh Assessment/Plan: POD3 s/p incision and drainage of right medial thigh infected hematoma pain meds prn - tylenol first line, oxy breakthrough consider tramadol prn to avoid tylenol and NSAIDs culture with MRSA, on doxycycline po per ID wound is clean, not granulating yet ambulating well saline-dampened gauze tucked into wound (~2/3 of a 4x4) covered with folded dry 4x4 gauze and paper tape (pt has skin sensitive to others) NO damp gauze outside wound/on intact skin dressing to be changed daily, can shower with dressing OFF/packing OUT just before it is to be redone at home pain meds will need to be Rx by medical team for home - percocet prn or ? tramadol NO refills available from surgery after discharge should f/u with PMD - per daughter, she sees Dr. Rob Douglass, - and GI, Dr. Romeo for d/c home tomorrow morning daughter will come to CHANGE DRESSING with me to demonstrate technique then can go with Rx from medical team will also f/u with me after discharge, to call for appt in wound clinic instructions in d/c plan discussed with Dr. Maurice Code(s): S70.10XA - CONTUSION OF UNSPECIFIED THIGH, INITIAL ENCOUNTER Qualifiers: Encounter type: sequela Laterality: right Qualified Code(s): S70.11XS - Contusion of right thigh, sequela (2) Thrombocytopenia Code(s): D69.6 - THROMBOCYTOPENIA, UNSPECIFIED (3) Alcoholic cirrhosis of liver with ascites Code(s): K70.31 - ALCOHOLIC CIRRHOSIS OF LIVER WITH ASCITES (4) Hepatitis C Code(s): B19.20 - UNSPECIFIED VIRAL HEPATITIS C WITHOUT HEPATIC COMA Qualifiers: Viral hepatitis chronicity: chronic Hepatic coma status: without hepatic coma Qualified Code(s): B18.2 - Chronic viral hepatitis C (5) Hyperbilirubinemia Code(s): E80.6 - OTHER DISORDERS OF BILIRUBIN METABOLISM
--- NOTE | 2018-11-30 19:22 | PN ---
Physical Exam: SUBJECTIVE: Patient seen and examined at bedside this morning. She endorses significant improvement in her right lower extremity pain. She admits one soft bowel movement earlier today. She denies subjective fevers, chills. OBJECTIVE: Vital Signs Period Temp Pulse Resp BP Sys/Mittal Pulse Ox Last 24 Hr 98 F-98.4 F 79-94 18-20 113-136/68-78 99-99 GENERAL: Awake, alert, and fully oriented, in no acute distress. HEAD: Normal with no signs of trauma. EYES: Pupils equal, round and reactive to light, extraocular movements intact, sclera anicteric. EARS, NOSE, THROAT: Oropharynx clear without exudates. Moist mucous membranes. NECK: Supple without lymphadenopathy. LUNGS: Breath sounds equal, clear to auscultation bilaterally. No wheezes, and no crackles. No accessory muscle use. HEART: Regular rate and rhythm, normal S1 and S2 without murmur, rub or gallop. ABDOMEN: Distended. Diffusely tender to palpation X4 quadrants. Tympanic to percussion X 4 quadrants. Hypoactive bowel sounds X4 quadrants. No guarding, no rebound tenderness. Two vertical scars noted from prior surgeries. Healed, clean dry. UPPER EXTREMITIES: 2+ radial pulses b/l, warm, well-perfused. LOWER EXTREMITIES: 1+ dorsalis pedis pulses b/l. Right lower extremity indurated and tender to palpation. Trace pitting edema B/L lower extremities. Right lower extremity surgical site packed, and bandaged clean, dry, without bleeding or discharge. NEUROLOGICAL: Cranial nerves II-XII intact. Normal speech. PSYCHIATRIC: Cooperative. Appropriate mood and affect Laboratory Results - last 24 hr 11/30/18 11/30/18 06:30 06:30 WBC 3.5 L RBC 2.53 L Hgb 9.5 L Hct 27.5 L MCV 108.9 H MCH 37.5 H MCHC 34.4 RDW 15.0 Plt Count 103 L MPV 6.8 L Sodium 130 L Potassium 5.0 Chloride 99 Carbon Dioxide 25 Anion Gap 5 L BUN 18 Creatinine 0.7 Creat Clearance w eGFR > 60 Random Glucose 91 Calcium 7.2 L Total Bilirubin 1.9 H AST 70 H ALT 33 Alkaline Phosphatase 170 H Total Protein 6.6 Albumin 1.7 L Active Medications Generic Name Dose Route Start Last Admin Trade Name Freq PRN Reason Stop Dose Admin Acetaminophen 650 mg 11/27/18 14:51 11/30/18 16:48 Tylenol - PO 650 mg Q6H PRN Administration Pain Level 4 - 10 Docusate Sodium 100 mg 11/27/18 14:51 Colace - PO BID PRN CONSTIPATION Doxycycline Hyclate 100 mg 11/29/18 18:00 11/30/18 17:57 Vibramycin - PO Not Given BID@1000,1800 [facility] Furosemide 20 mg 12/01/18 10:00 Lasix - PO DAILY [facility] Lactulose 20 gm 11/28/18 13:00 11/30/18 10:49 Cephulac (Oral Use) PO 20 gm BID [facility] Administration Magnesium Oxide 400 mg 11/27/18 22:00 11/30/18 10:49 Mag-Ox - PO 400 mg BID [facility] Administration Oxycodone HCl 5 mg 11/27/18 14:51 11/30/18 16:46 Roxicodone - PO 5 mg Q4H PRN Administration PAIN LEVEL 7-10 Potassium Chloride 40 meq 11/28/18 10:00 11/30/18 10:49 K-Dur - PO 40 meq DAILY [facility] Administration Simethicone 80 mg 11/27/18 14:51 Mylicon - PO Q4H PRN GAS Spironolactone 100 mg 11/28/18 10:00 11/30/18 10:49 Aldactone - PO 100 mg DAILY [facility] Administration IMAGING -CT lower extremity shows ascites and extensive subucateous edema without discrete fluid collection suggestive of abscess/ hematoma. -Repeat CT lower extremity shows subcutaneous fluid collection suspicious for abscess. -Duplex US B/L lower extremities negative for DVT -US soft tissue shows fluid collection, possibly suggestive of abscess formation. ASSESSMENT/PLAN: Patient is a 48 year old female with history of cirrhosis secondary to alcohol abuse, hepatitis C, presents with complaint of diffuse abdominal and lower extremity swelling. Ascites -S/P paracentesis (11/09) with 5500cc serous fluid removed. F/U serology, and microbiology. -Spironolactone 100mg PO daily -Lasix 40mg PO daily -Lactulose 20grams PO BID- patient counselled she should be having 2-3 soft bowel movements daily. -GI consult (Dr. Romeo) appreciated. Considering history of elevated CA 19-[address] abdomen pelvis ordered. -Hepatic cirrhosis, portal hypertension, extensive varices. Gastric antral thickening noted. Scattered diverticula without diverticulitis. Lower extremity swelling -POD #3 s/p incision and drainage of right lower extremity. Drained 30cc of blood, with purulence. -Wound cultures grow presumptive MRSA -Doxycycline 100mg PO BID day #2 -Patient completed 12 days Rocephin 2grams IV daily -Pain control with Tylenol 650mg PO Q6H PRN for pain 1-5 -Oxycodone 5mg PO Q8H PRN for pain 6 -10 -Surgical consult (Dr. Eneida Hines) appreciated. Dressing changes demonstrated to patient and daughter at bedside. -ID consult (Dr. Bardales) appreciated. History of ETOH abuse -Patient states last drink was 6 months ago. Currently not in withdrawal. -Counselled patient regarding importance of alcohol abstinence. -Monitor closely for withdrawal Transaminitis -Labs not significantly different from prior studies. Likely chronic. -Trend CMP Hyponatremia -Stable. Likely secondary to volume overload. -Monitor CMP closely. Oral HSV -Completed 5 day course Acyclovir 400mg. FEN -No IV fluids -Follow CMP -Sodium controlled diet Prophylaxis -Heparin 5000u subq TID Disposition -Continue care in medical-surgical floor. Patient likely for discharge tomorrow. Will consider tramadol for pain, limiting tylenol due to transaminitis. Fall precautions Visit type - Emergency Visit Emergency Visit: Yes ED Registration Date: 11/16/18 Care time: The patient presented to the Emergency Department on the above date and was hospitalized for further evaluation of their emergent condition. - New Patient This patient is new to me today: No - Critical Care Critical Care patient: No - Discharge Referral Referred to [facility] Med P.C.: No
[2018-11-30] MEDS ORDERED: diphenhydrAMINE HCL 25 MG CAPSULE (FP) PO ONE (23:30)
[2018-12-01] MEDS: oxyCODONE HCL 5 MG TABLET PO PRN ×2 (02:10→06:26)
[2018-12-01 07:41] LABS: HEMATOCRIT 25.3 % (32.4-45.2); HEMOGLOBIN 8.5 GM/dL (10.7-15.3); MCH 36.7 pg (25.7-33.7); MCHC 33.6 g/dl (32.0-36.0); MEAN CELL VOLUME 109.2 fl (80-96); MEAN PLT VOLUME 7.1 fl (7.5-11.1); PLATELET COUNT 91 K/MM3 (134-434); RBC 2.32 M/mm3 (3.60-5.2); RDW 15.4 % (11.6-15.6); WHITE BLOOD COUNT 2.7 K/mm3 (4.0-10.0)
[2018-12-01 08:19] LABS: ALBUMIN 1.5 g/dl (3.4-5.0); ALK PHOS 145 U/L (45-117); ANION GAP 3 MMOL/L (8-16); BILIRUBIN,TOTAL 1.2 mg/dL (0.2-1); BLOOD UREA NITROGEN 17 mg/dL (7-18); CALCIUM 7.4 mg/dL (8.5-10.1); CHLORIDE 102 mmol/L (98-107); CO2 27 mmol/L (21-32); CREATININE 0.6 mg/dL (0.55-1.3); GLUCOSE,RANDOM 96 mg/dL (74-106); PHOSPHOROUS 3.9 mg/dL (2.5-4.9); SGOT/AST 75 U/L (15-37); SGPT/ALT 38 U/L (13-61); SODIUM 131 mmol/L (136-145); TOT PROT 6.3 g/dl (6.4-8.2)
--- NOTE | 2018-12-01 09:21 | PN ---
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 1. Infected right thigh hematoma with cellulitis - s/p I&D - she is going home now and she is going to f/u with wound care and surgery and she already has instructions by surgery. 2. Cirrhosis with ascites, peripheral edema, portal hypertension, hypoalbuminemia - Continue Aldactone, Lasix, Lactulose 3. Anemia, thrombocytopenia - Chronic, secondary to cirrhosis - Stable 4. Hypomagnesemia - Improved 5. Hyponatremia - Secondary to cirrhosis - Stable 6. Chronic hepatitis C 7. History of alcohol abuse 8- Disposition - Discharge home
[2018-12-01] MEDS: POTASSIUM CHLORIDE TABS 20 MEQ TABLET.ER (FP) PO SCH (09:37)
[2018-12-01] MEDS: MAGNESIUM OXIDE 400 MG TABLET (FP) PO SCH (09:37)
[2018-12-01] MEDS: LACTULOSE 20 GM/30 ML UDC (FOR ORAL USE ONLY) PO SCH (09:37)
[2018-12-01] MEDS: DOXYCYCLINE HYCLATE 100 MG CAPSULE PO SCH (09:37)
[2018-12-01] MEDS: SPIRONOLACTONE 25 MG TABLET (FP) PO SCH (09:38)
[2018-12-01] MEDS ORDERED: FUROSEMIDE 20 MG TABLET (FP) PO SCH (10:00)
--- NOTE | 2018-12-01 10:56 | PN ---
Progress Note, Physician History of Present Illness: 48yo F with multiple medical problems including hep C and alcoholic cirrhosis with ascites and portal hypertension with varices and thrombocytopenia. She had a right medial thigh fluid collection that got somewhat larger over the week, was painful and pointing. She was taken for complex I&D of the collection with findings of an infected hematoma, with mostly bloody drainage and some purulence. Culture broth is growing MRSA. Per ID on po Doxy. She is seen and examined in bed, family present; pain is better daily, though still hurts some. Last pain med was this morning. Dressing is changed now with her niece, who is able to demonstrate appropriate technique, and all questions answered. Pt c/o itching still. - Current Medication List Current Medications: Active Medications Acetaminophen (Tylenol -) 650 mg PO Q6H PRN PRN Reason: Pain Level 4 - 10 Last Admin: 11/30/18 16:48 Dose: 650 mg Docusate Sodium (Colace -) 100 mg PO BID PRN PRN Reason: CONSTIPATION Doxycycline Hyclate (Vibramycin -) 100 mg PO BID@1000,1800 [facility] Last Admin: 12/01/18 09:37 Dose: 100 mg Furosemide (Lasix -) 20 mg PO DAILY [facility] Last Admin: 12/01/18 09:37 Dose: 20 mg Lactulose (Cephulac (Oral Use)) 20 gm PO BID [facility] Last Admin: 12/01/18 09:37 Dose: 20 gm Magnesium Oxide (Mag-Ox -) 400 mg PO BID [facility] Last Admin: 12/01/18 09:37 Dose: 400 mg Oxycodone HCl (Roxicodone -) 5 mg PO Q4H PRN PRN Reason: PAIN LEVEL 7-10 Last Admin: 12/01/18 06:26 Dose: 5 mg Potassium Chloride (K-Dur -) 40 meq PO DAILY [facility] Last Admin: 12/01/18 09:37 Dose: 40 meq Simethicone (Mylicon -) 80 mg PO Q4H PRN PRN Reason: GAS Spironolactone (Aldactone -) 100 mg PO DAILY [facility] Last Admin: 12/01/18 09:38 Dose: 100 mg - Objective Vital Signs: Vital Signs Temperature 98 F 12/01/18 06:00 Pulse Rate 80 12/01/18 06:00 Respiratory Rate 20 12/01/18 06:00 Blood Pressure 111/60 12/01/18 06:00 O2 Sat by Pulse Oximetry (%) 99 11/30/18 09:00 Constitutional: Yes: Well Nourished, No Distress, Calm Eyes: Yes: Conjunctiva Clear, EOM Intact. No: Sclera Icterus HENT: Yes: Atraumatic, Normocephalic Musculoskeletal: No: Joint Stiffness, Joint Swelling Extremities: No: Cool, Cyanosis Integumentary: Yes: Incision (right medial thigh dressed). No: Jaundice, Rash Wound/Incision: Yes: Dressing Dry and Intact (very little strikethrough on dressing), Dressing Removed (and replaced - two saline-damp 2x2 gauzes packed gently into wound, covered with folded 4x4 and paper tape), Unapproximated ( wound clean, base still with dark material from OR cauterization, upper portion turning pink in spots, no bleeding) Neurological: Yes: Alert, Oriented Labs: CBC, BMP 12/01/18 06:30 12/01/18 06:30 CMP Sodium 131 mmol/L (136-145) L 12/01/18 06:30 Potassium 5.0 mmol/L (3.5-5.1) 12/01/18 06:30 Chloride 102 mmol/L (98-107) 12/01/18 06:30 Carbon Dioxide 27 mmol/L (21-32) 12/01/18 06:30 Anion Gap 3 MMOL/L (8-16) L 12/01/18 06:30 BUN 17 mg/dL (7-18) 12/01/18 06:30 Creatinine 0.6 mg/dL (0.55-1.3) 12/01/18 06:30 Creat Clearance w eGFR > 60 (>60) 12/01/18 06:30 Random Glucose 96 mg/dL (74-106) 12/01/18 06:30 Calcium 7.4 mg/dL (8.5-10.1) L 12/01/18 06:30 Phosphorus 3.9 mg/dL (2.5-4.9) 12/01/18 06:30 Magnesium 2.0 mg/dL (1.8-2.4) 12/01/18 06:30 Total Bilirubin 1.2 mg/dL (0.2-1) H 12/01/18 06:30 AST 75 U/L (15-37) H 12/01/18 06:30 ALT 38 U/L (13-61) 12/01/18 06:30 Alkaline Phosphatase 145 U/L (45-117) H 12/01/18 06:30 C-Reactive Protein 11.4 MG/DL (0.00-0.3) H 11/17/18 06:00 B-Natriuretic Peptide 181.1 pg/ml (5-125) H 11/16/18 15:36 Total Protein 6.3 g/dl (6.4-8.2) L 12/01/18 06:30 Albumin 1.5 g/dl (3.4-5.0) L 12/01/18 06:30 Lipase 147 U/L (73-393) 11/16/18 15:36 Vitamin B12 2410 pg/ml (193-986) H 11/22/18 05:00 Serum Folate 7 ng/mL (3.1-17.5) 11/22/18 05:00 Problem List - Problems (1) Traumatic hematoma of thigh Assessment/Plan: POD4 s/p incision and drainage of right medial thigh infected hematoma pain meds prn - few percocet Rx for home but pt doing well with less pain medicine culture with MRSA, on doxycycline po per ID - to complete course at home wound is clean, starting to turn pink family able to change dressings supplies given to last first week or two ambulating well f/u with PMD - per daughter, she sees Dr. Rob Malik, - and GI, Dr. Romeo for d/c home will also f/u with me after discharge, to call for appt in wound clinic (~2 wks) instructions in d/c plan Code(s): S70.10XA - CONTUSION OF UNSPECIFIED THIGH, INITIAL ENCOUNTER Qualifiers: Encounter type: sequela Laterality: right Qualified Code(s): S70.11XS - Contusion of right thigh, sequela (2) Thrombocytopenia Code(s): D69.6 - THROMBOCYTOPENIA, UNSPECIFIED (3) Alcoholic cirrhosis of liver with ascites Code(s): K70.31 - ALCOHOLIC CIRRHOSIS OF LIVER WITH ASCITES (4) Hepatitis C Code(s): B19.20 - UNSPECIFIED VIRAL HEPATITIS C WITHOUT HEPATIC COMA Qualifiers: Viral hepatitis chronicity: chronic Hepatic coma status: without hepatic coma Qualified Code(s): B18.2 - Chronic viral hepatitis C (5) Hyperbilirubinemia Code(s): E80.6 - OTHER DISORDERS OF BILIRUBIN METABOLISM
[2018-12-01 12:50] VITALS: BP 100/54; PULSE 76; TEMP 98.1
--- NOTE | 2018-12-02 15:23 | DS ---
Physical Exam: SUBJECTIVE: Patient seen and examined at bedside this morning. She endorses significant improvement in her right lower extremity pain. Patient denies subjective fevers, chills, shortness of breath, chest pain, palpitations, abdominal pain, nausea, vomiting. OBJECTIVE: Vital Signs Temperature 98.1 F 12/01/18 10:00 Pulse Rate 76 12/01/18 10:00 Respiratory Rate 20 12/01/18 10:00 Blood Pressure 100/54 L 12/01/18 10:00 O2 Sat by Pulse Oximetry (%) 99 12/01/18 09:00 PHYSICAL EXAM GENERAL: Awake, alert, and fully oriented, in no acute distress. HEAD: Normal with no signs of trauma. EYES: Pupils equal, round and reactive to light, extraocular movements intact, sclera anicteric. EARS, NOSE, THROAT: Oropharynx clear without exudates. Moist mucous membranes. NECK: Supple without lymphadenopathy. LUNGS: Breath sounds equal, clear to auscultation bilaterally. No wheezes, and no crackles. No accessory muscle use. HEART: Regular rate and rhythm, normal S1 and S2 without murmur, rub or gallop. ABDOMEN: Distended. Nontender to palpation X4 quadrants. Tympanic to percussion X 4 quadrants. Normoactive bowel sounds X4 quadrants. No guarding, no rebound tenderness. Two vertical scars noted from prior surgeries. Healed, clean dry. UPPER EXTREMITIES: 2+ radial pulses b/l, warm, well-perfused. LOWER EXTREMITIES: 1+ dorsalis pedis pulses b/l. Right lower extremity indurated and tender to palpation. Trace pitting edema B/L lower extremities. Right lower extremity surgical site packed, and bandaged clean, dry, without bleeding or discharge. NEUROLOGICAL: Cranial nerves II-XII intact. Normal speech. PSYCHIATRIC: Cooperative. Appropriate mood and affect LABS HOSPITAL COURSE: Date of Admission:11/16/18 Date of Discharge: 12/01/18 Patient is a 48 year old female with history of cirrhosis secondary to alcohol abuse, hepatitis C, presents with complaint of diffuse abdominal and lower extremity swelling. Paracentesis was performed with 5500cc serous fluid removed. Patient received Albumin repletion. Patient started on Rocephin, Lasix , Spironolactone, Lactulose. GI consult discussed obtaining CT abdomen pelvis ( due to history of elevated CA 19-9 and CA 125) which showed hepatic cirrhosis, portal hypertension, extensive varices. Gastric antral thickening noted. Scattered diverticula without diverticulitis. CT lower extremity showed ascites and extensive subucateous edema without discrete fluid collection suggestive of abscess/ hematoma. However repeat CT lower extremity several days later showed subcutaneous fluid collection suspicious for abscess. General surgery consult drained 30cc of blood, with purulence. Wound cultures noted to grow MRSA, patient started on Doxycycline. Dressing changes were demonstrated to patient's family by general surgery. Patient discharged with Doxycycline, Lasix, Lactulose , Spironolcatone. Oxycodone/ Acetaminophen prescribed by general surgery. Discharged with instruction to follow up with primary care physician, fiberglass machine operator, and general surgeon. Minutes to complete discharge: 45 Discharge Summary Reason For Visit: GENERALIZED EDEMA Condition: Stable - Instructions Diet, Activity, Other Instructions: You were admitted for abdominal pain. You were evaluated by the fiberglass machine operator, and were found to have fluid within your abdomen (ascites) which was drained. Your leg was evaluated by the general surgeon, and infectious disease physician. You had a procedure to drain the blood and pus from your leg. The wound was found to have infection with MRSA bacteria. Continue taking your home medications: Spironolactone 100mg daily Lasix 20mg daily Lactulose 20 grams three times per day (ensure that you have 2- 3 soft bowel movements daily) In addition, you will continue taking antibiotic (Doxycycline) 100mg twice daily for the next 12 days. Follow up with your primary care physician within two- three days after discharge. A referral to Dr. Meier has been provided for you. It is important that you follow up with fiberglass machine operator (Dr. Romeo) within one week after discharge. Postoperative instructions: You had incision and drainge of right thigh infected hematoma on 11/27/[address] Max Hines of [facility]. Wound Care: You or a family member will need to change your wound dressing daily. The dressing should be taken off and the packing removed to shower daily. It is ok to take the gauze out in the shower if you want. It is OK to shower and clean the area with soap and water. No bath or swimming until the wound has healed. Do not use anything else on the wound (no creams or ointments , no alcohol or peroxide). Pat the area dry after the shower. Then it should be redressed as follows: Wash hands and use gloves (available at the pharmacy) to change the dressing ( unless you do it yourself, though you can too). Use one saline-dampened gauze for wound packing. Wet the gauze piece with saline solution, then squeeze it out so it does not drip. Tuck it into the wound so it touches all the wound surfaces and fits inside. DO NOT let the damp gauze lie outside the wound on intact skin. Cover with folded dry gauze and paper tape to keep in place. The wound will get smaller with time, and you may need a smaller piece of gauze to keep it inside the wound edges. Pain: For pain, you may use Tylenol (acetaminophen) 1-2 pills every 6 hours as neededs. If you are prescribed a Tylenol/narcotic combination for severe pain, use it instead of plain Tylenol as needed and switch back when your pain starts decreasing. Do not take more than 3000 mg of acetaminophen in a day. Take medications as prescribed or indicated on the labeling. Follow-up: Call the [facility] at [facility] (5W, 5th floor) to make your followup appointment with Dr. Hines. This will likely be on a Monday afternoon. Call Dr. Hines's office at [phone] if you have: * increasing pain not responsive to pain medication * fever of 101F or higher * vomiting * unusual or increasing bleeding or drainage from wounds * increasing redness or swelling at wound sites Also, see your primary medical doctor within 1-2 weeks. Return to the nearest Emergency Department if you experience any fevers, chills , shortness of breath, chest pain, palpitations, worsening abdominal pain, nausea, vomiting, excessive bleeding or drainage from your surgical site. Referrals: Max Hines MD [Staff Physician] - Rob Malik [Non Staff, Medical] - 1 Week Jag Romeo MD [Staff Physician] - 1 Week Disposition: HOME - Home Medications Comprehensive Discharge Medication List: Ambulatory Orders Doxycycline Hyclate [Vibramycin -] 100 mg PO BID@1000,1800 12 Days #24 capsule 11/30/18 Furosemide [Lasix -] 20 mg PO DAILY 28 Days #28 tablet 11/30/18 Lactulose (Oral Use) [Cephulac -] 20 gm PO TID 28 Days #84 udc 11/30/18 Spironolactone [Aldactone -] 100 mg PO DAILY 28 Days #112 tablet 11/30/18 Oxycodone HCl/Acetaminophen [Percocet 5-325 mg Tablet] 1 tab PO Q8H PRN #22 tablet MDD 6 12/01/18 This patient is new to me today: No Emergency Visit: Yes ED Registration Date: 11/16/18 Care time: The patient presented to the Emergency Department on the above date and was hospitalized for further evaluation of their emergent condition. Critical Care patient: No - Discharge Referral Referred to [facility] Med P.[facility].: No
== END 2018-12-01 15:46 | disposition home or self-care (01) | DRG 264 ==
LOC: JER 12:33 → JERBED 19:48 → J7W 11-17 02:53 → J8W 11-29 18:45
PROVIDERS: ADMIT Internal Medicine; ATTEND Internal Medicine
PROC: 0W9G3ZX Drainage of Peritoneal Cavity, Percutaneous Approach, Diagnostic (ICD-10-PCS; principal; 2018-11-19)
PROC: 0Y9 Anatomical Regions, Lower Extremities, Drainage (ICD-10-PCS; 2018-11-27)
DX: K70.31 Alcoholic cirrhosis of liver with ascites (principal); E88.09 Other disorders of plasma-protein metabolism, not elsewhere classified; L03.115 Cellulitis of right lower limb; E83.42 Hypomagnesemia; E87.1 Hypo-osmolality and hyponatremia; B18.2 Chronic viral hepatitis C; B00.1 Herpesviral vesicular dermatitis; F17.210 Nicotine dependence, cigarettes, uncomplicated; F10.10 Alcohol abuse, uncomplicated; D53.9 Nutritional anemia, unspecified; D69.59 Other secondary thrombocytopenia; R60.1 Generalized edema; L02.415 Cutaneous abscess of right lower limb; K76.6 Portal hypertension; E80.6 Other disorders of bilirubin metabolism; R74.0 Nonspecific elevation of levels of transaminase and lactic acid dehydrogenase [LDH]; S70.11XA Contusion of right thigh, initial encounter; X58.XXXA Exposure to other specified factors, initial encounter; Y93.9 Activity, unspecified; Y92.89 Other specified places as the place of occurrence of the external cause; Y99.8 Other external cause status; D75.89 Other specified diseases of blood and blood-forming organs; A49.02 Methicillin resistant Staphylococcus aureus infection, unspecified site
CPT/HCPCS: 36415; 71046-TC-FY; 73700-TC-RT; 73701-TC-RT; 74177-TC; 76705-TC; 76882-TC-RT-FY; 76942-TC; 80048; 80053; 81003; 81015; 82042; 82150; 82607; 82746; 82945; 83615; 83690; 83735; 83880; 84100; 84157; 84478; 84703; 85025; 85027; 85610; 85651; 85730; 86140; 87070; 87075; 87102; 87116; 87186; 87205; 87206; 87210; 87389; 87899; 88108; 93005; 93010; 93970-TC; 94760; 97116-GP; 97162-GP; 99285-25; J1644; P9047